=== PATIENT | male | born 1950 | race Caucasian/White ===

== ENCOUNTER → 2018-03-07 08:04 | Outpatient (CLI) | payer OTHER, SELFPAY ==
--- NOTE | 2018-03-07 | DI.MRI.S_ITS ---
PROCEDURE: MR LUMBAR SPINE WO CON INDICATIONS: LUMBAR DISC DISORDER TECHNIQUE: Noncontrast sagittal T1 spin echo and T2 fast echo, sagittal STIR, axial T1 and T2 fast spin echo through the lumbar spine. In cases with scoliosis, additional coronal T2 fast spin echo may be performed. COMPARISON: [facility], MR, L-SPINE WITHOUT CONTRAST, 09/02/2009, 16:59. FINDINGS: Image quality: Excellent. Alignment and Curvature: No plain films are available for comparison, for numbering purposes. Thus, for the purposes of this examination, 5 lumbar type vertebral bodies will be presumed, as denoted on the montage panel. This should be confirmed and correlated with plain films, prior to any lumbar spinal intervention.There is normal bony alignment. Bone Marrow: Marrow is of normal overall signal. No acute vertebral body compression fractures. Spinal Cord: Conus medullaris terminates at the lower L1 level. Visualized cord demonstrates normal signal and size. Paraspinous Soft Tissues: No paravertebral masses. L1-L2: Mild disc desiccation and mild diffuse disc bulge. Mild facet hypertrophy bilaterally. Mild epidural lipomatosis. Mild canal stenosis. Mild foraminal stenosis bilaterally. No change. L2-L3: Moderate disc desiccation and mild diffuse disc bulge. Mild facet hypertrophy. Moderate ligament flavum hypertrophy. Moderate epidural lipomatosis. Increased, moderate to severe canal stenosis. Increased, severe bilateral foraminal stenosis with flattening deformity of the L2 nerve roots within the neural foramina. L3-L4: Mild diffuse disc bulge and moderate disc desiccation. Moderate facet and ligamentum hypertrophy bilaterally. Increased, moderate canal stenosis. Moderate foraminal stenosis bilaterally. L4-L5: Moderate disc desiccation. Severe bilateral facet hypertrophy. Moderate ligamentum flavum hypertrophy bilaterally. Severe canal stenosis, as before. Increased, severe right and moderate left foraminal stenosis. Mild flattening deformity of the right L4 nerve root within the neural foramen. L5-S1: Moderate disc desiccation and mild diffuse disc bulge, with small superimposed broad based left far lateral protrusion, which is increased slightly. Moderate facet hypertrophy bilaterally. Mild canal stenosis. Moderate right foraminal stenosis is unchanged. There is increased, severe left foraminal stenosis with mild flattening deformity of the left L5 nerve root within the neural foramen. IMPRESSION: 1. Multilevel degenerative disc and facet disease, as well ligamentum flavum hypertrophy and epidural lipomatosis. 2. No change in severe L4-L5 canal stenosis. Right greater than left L4-L5 foraminal stenosis, associated with mild flattening deformity of the right L4 nerve root. 3. Increased, moderate to severe canal stenosis at L2-L3, and increased, severe right lateral L2-L3 foraminal stenosis associated with bilateral L2 nerve root flattening. 4. Increased, severe left L5-S1 foraminal stenosis associated with left L5 nerve root flattening. 5. Recommend correlation with clinical symptoms to ascertain relevance of these findings. Dictated by: Gilberto Buitrago M.D. on 03/07/2018 at 9:25 Approved by: Gilberto Buitrago M.D. on 03/07/2018 at 9:33
== END ==
PROVIDERS: Family Provider Family Medicine; PCP Family Medicine; Visit Provider Family Medicine
DX: M51.86 Other intervertebral disc disorders, lumbar region (principal); M51.36 Other intervertebral disc degeneration, lumbar region; M48.07 Spinal stenosis, lumbosacral region
CPT/HCPCS: 72148

== ENCOUNTER 2018-04-23 13:12 | Outpatient (CLI) | payer OTHER, SELFPAY ==
[2018-04-23] VITALS (11 sets, daily range): BP systolic 133–167; BP diastolic 67–97; PULSE 66–86; RESP 15–20; TEMP 36.1; O2SAT 95–100
--- NOTE | 2018-04-23 13:13 | DI.RAD.S_ITS ---
PROCEDURE: PAIN L/S FACET INJ/BLK 1ST JARVIS COMPARISON: None. INDICATIONS: Lumbosacral spondylosis FINDINGS: Bilateral L4-5 and L5-S1 needle tip localization was documented. IMPRESSION: Successful bilateral facet joint needle tip localization or epidural steroid injection. Dictated by: Saulo Bai M.D. on 04/23/2018 at 16:16 Approved by: Saulo Bai M.D. on 04/23/2018 at 16:16
--- NOTE | 2018-04-23 13:49 | P.PCN_ITS ---
Procedures Date/Time Date of procedure: 04/23/18 Time of procedure: 13:47 General Procedure description: PREOP DIAGNOSIS 1. FACET ARTHROPATHY 2. AXIAL LBP 3. MULTILEVEL DDD POST OP DIAGNOSIS 1. FACET ARTHROPATHY 2. AXIAL LBP 3. MULTILEVEL DDD PROCEDURES 1. FLUORSCOPICALLY GUIDED CONTRAST CONTROLLED FACET JOINT INJECTIONS BILATERAL L4/5, L5/S1 PHYSICIAN: Jaspal Barros, DO INDICATIONS Korin is referred by Dr. Ramirez for treatment of Axial LBP FINDINGS Multilevel Facet Arthropathy with Clinically significant axial LBP DESCRIPTION OF PROCEDURE Fluoroscopically guided, contrast-controlled bilateral L4/5, L5/S1 facet joint injections. Following denial of allergy and review of potential side effects and complications, including, but not necessarily limited to, infection, allergic reaction, local tissue breakdown, stroke, temporary or permanent nerve injury, paralysis, and possible , the patient indicated that the patient understood and agreed to proceed. An informed consent document was signed by the patient, witnessed by a nurse, and placed in the patient's chart. Additionally, other treatment options including medications, modalities, and physical therapy were reviewed with the patient. After review of previous anaesthesic history and IV conscious sedation the patient was deemed safe to proceed with todays procedure with IV conscious sedation as ASA class II designation. Safety time-out was performed to confirm patient ID, procedure to be performed and site of procedure. IV sedation was accomplished with a combination of 5mg was administered by the RN after DO order , titrated to patient comfort during the course of the procedure while the patient remained responsive to all verbal commands In the prone position, following sterile prep and drape of the lumbar region, the posterior aspect of the L4/5, L5/S1 facet joints were identified fluoroscopically. The skin was anesthetized via a 25-gauge 1.5-inch needle with 1% lidocaine solution into the corresponding facet joints. At this point, a 22-gauge 3.5-inch spinal needle was atraumatically introduced and advanced under fluoroscopic guidance into the corresponding facet joints. Following negative aspiration, injections of approximately 0.2-cc of Isovue 200 confirmed interarticular placement without vascular uptake. The identical procedure was then performed at the L4/5, L5/S1 facet joints on the left. Radiological data, including multiple fluoroscopic views of the lumbosacral spine, reveal a spinal needle at the L3/4, L5/S1 facet joints bilaterally. Subsequent views show flow of contrast material both superiorly and inferiorly within the joint space without vascular or intrathecal uptake. At this point, a total of 0.5 cc including a mixture of 0.25 cc Marcaine and 0.25 cc betamethasone was injected without complication into each of the corresponding facet joints. The patient tolerated the procedure well without signs or symptoms of complications prior to transfer to the recovery area continued monitoring without incident. The patient was then transferred to the recovery area where they were observed for an appropriate period of time after the injection. The patient reported a VAS score of 7 prior to the procedure and a post- procedure VAS of 0. Total Fluoroscopy Time: 20.3 seconds Total Conscious Sedation Time: 24min POST OP INSTRUCTIONS The patient was provided a Pain Log to continue to record their response to the target-specific procedure prior to follow-up visit with their referring physician. Additionally, specific post-injection care instructions and a contact number to our office were provided if concerns arise regarding possible complications associated with the procedure are suspected. Jaspal Barros DO Complications: none
[2018-04-23] MEDS: MIDAZOLAM 5 MG/5 ML VIAL IV (14:04)
[2018-04-23] MEDS: LIDOCAINE 1% 20 ML INJ 10 ML INJ (14:09)
[2018-04-23] MEDS: BETAMETHASONE 30 MG/5 ML MDV 12 MG INJ (14:10)
[2018-04-23] MEDS: IOPAMIDOL 15 ML VIAL 3 ML INJ (14:10)
[2018-04-23] MEDS: BUPIVACAINE 0.5% (PF) VIAL 5 ML INJ (14:10)
--- NOTE | 2018-04-24 14:09 | PC.NURSE ---
FOLLOW UP PHONE CALL MADE. MSG LEFT WITH OFFICE PHONE #
== END 2018-04-23 14:51 ==
PROVIDERS: Family Provider Family Medicine; PCP Family Medicine; Visit Provider Physical Medicine & Rehabilitation
DX: M47.26 Other spondylosis with radiculopathy, lumbar region (principal); M47.27 Other spondylosis with radiculopathy, lumbosacral region; M51.36 Other intervertebral disc degeneration, lumbar region; M51.37 Other intervertebral disc degeneration, lumbosacral region; M48.061 Spinal stenosis, lumbar region without neurogenic claudication; M54.5 Low back pain
CPT/HCPCS: 64493; 99152; J0702; J2250

== ENCOUNTER 2018-06-18 13:09 | Outpatient (CLI) | payer OTHER, SELFPAY ==
[2018-06-18] VITALS (7 sets, daily range): BP systolic 161–182; BP diastolic 86–107; PULSE 64–86; RESP 16–18; TEMP 36.6; O2SAT 95–99
--- NOTE | 2018-06-18 13:10 | DI.RAD.S_ITS ---
PROCEDURE: PAIN L INTERLAMINAR/CAUDAL INJ INDICATIONS: Spinal stenosis, lumbar region without neurogenic FINDINGS: Fluoroscopic spot filming was performed to verify placement of spinal needles at the interlaminar nodule 45 level(s), as labeled on the films. Appropriate location(s) of the needle tip(s) was confirmed by injection of iodinated contrast. IMPRESSION: Successful needle tip localization for L4-5 interlaminar notch epidural steroid injection dorsally. Dictated by: Saulo Bai M.D. on 06/18/2018 at 16:21 Approved by: Saulo Bai M.D. on 06/18/2018 at 16:24
--- NOTE | 2018-06-18 13:37 | PM.PROC.1 ---
Procedures Date/Time Date of procedure: 06/18/18 Time of procedure: 13:37 General Procedure description: PROVIDER: Jaspal Barros DO Operative Note PREOP DIAGNOSIS 1. HNP WITH RADICULAR FEATURES, 2. MULTILEVEL CENTRAL STENOSIS, POST OP DIAGNOSIS 1. HNP WITH RADICULAR FEATURES, 2. MULTILEVEL CENTRAL STENOSIS PROCEDURES 1. FLUORSCOPICALLY GUIDED CONTRAST CONTROLLED INTERLAMINAR EPIDURAL STEROID INJECTION -L4/5 PHYSICIAN: Jaspal Barros DO INDICATIONs: Korin is referred by Dr. Ramirez for treatment of Bilateral Foraminal Stenosis R>L LE symptoms. FINDINGS Multilevel Central Spinal Stenosis with Nerve Root Compression DESCRIPTION OF PROCEDURE Fluoroscopically guided, contrast-controlled L4/5 translaminar epidural steroid injection. Following denial of allergy and review of potential side effects and complications, including, but not necessarily limited to, infection, allergic reaction, local tissue breakdown, temporary as well as permanent nerve injury, paralysis, stroke and possible , the patient indicated that the patient understood and agreed to proceed. An informed consent document was signed by the patient, witnessed by a nurse, and placed in the patient's chart. Additionally, other treatment options including modalities, medications, and physical therapy were reviewed with the patient. After review of previous anaesthesic history and IV conscious sedation the patient was deemed safe to proceed with todays procedure with IV conscious sedation as ASA class II designation. Safety time-out was performed to confirm patient ID, procedure to be performed and site of procedure. IV sedation was accomplished with a combination of 4mg was administered by the RN after DO order, titrated to patient comfort during the course of the procedure while the patient remained responsive to all verbal commands In the prone position, following sterile prep and drape of the lumbar region, the L4/5 translaminar space was identified fluoroscopically. The skin was anesthetized via a 25-gauge, 1.5-inch needle with 1% lidocaine solution. At this point, a 22-gauge short bevel spinal needle was atraumatically introduced and advanced under fluoroscopic guidance into the region of the L4/5 translaminar space. Depth was confirmed on lateral view. Radiological data, including multiple fluoroscopic views of the lumbar spine, reveal a spinal needle at the L4/5 translaminar space. Lateral views then show placement of the needle in the epidural space. Subsequent views show contrast material flowing superiorly and inferiorly in the epidural space. No vascular or intrathecal uptake is observed. At this point, using loss of resistance technique with saline and air, the epidural space was entered. This was confirmed following negative aspiration with injection of approximately 1.5 cc of Isovue 200, showing excellent epidural flow without vascular or intrathecal uptake. At this point, 1 cc of 1% lidocaine solution combined with 3 cc or 20 mg of dexamethasone and 80mg Depo medrol was injected without incident. The patient tolerated the procedure well without signs or symptoms of complications prior to transfer to the recovery area continued monitoring without incident. The patient was then transferred to the recovery area where they were observed for an appropriate period of time after the injection. The patient reported a VAS score of 6 prior to the procedure and a post-procedure VAS of 0. Total Fluoroscopy Time: 11.8 seconds, 8.99 mGy Total Conscious Sedation Time: 24min POST OP INSTRUCTIONS The patient was provided a Pain Log to continue to record their response to the target-specific procedure prior to follow-up visit with their referring physician. Additionally, specific post-injection care instructions and a contact number to our office were provided if concerns arise regarding possible complications associated with the procedure are suspected. Jaspal Barros, Complications: none
[2018-06-18] MEDS: MIDAZOLAM 5 MG/5 ML VIAL IV (13:55)
[2018-06-18] MEDS: DEXAMETHASONE 10 MG/ML VIAL 20 MG INJ (14:05)
[2018-06-18] MEDS: BUPIVACAINE 0.25% (PF) VIAL 2 ML INJ (14:05)
[2018-06-18] MEDS: IOPAMIDOL 15 ML VIAL 3 ML INJ (14:05)
[2018-06-18] MEDS: methylPREDNISolone acetate 80 MG/ML VIAL INJ (14:06)
--- NOTE | 2018-06-18 14:13 | P.PCN_ITS ---
Procedures Date/Time Date of procedure: 06/18/18 Time of procedure: 13:37 General Procedure description: PROVIDER: Jaspal Barros DO Operative Note PREOP DIAGNOSIS 1. HNP WITH RADICULAR FEATURES, 2. MULTILEVEL CENTRAL STENOSIS, POST OP DIAGNOSIS 1. HNP WITH RADICULAR FEATURES, 2. MULTILEVEL CENTRAL STENOSIS PROCEDURES 1. FLUORSCOPICALLY GUIDED CONTRAST CONTROLLED INTERLAMINAR EPIDURAL STEROID INJECTION -L4/5 PHYSICIAN: Jaspal Barros DO INDICATIONs: Korin is referred by Dr. Ramirez for treatment of Bilateral Foraminal Stenosis R>L LE symptoms. FINDINGS Multilevel Central Spinal Stenosis with Nerve Root Compression DESCRIPTION OF PROCEDURE Fluoroscopically guided, contrast-controlled L4/5 translaminar epidural steroid injection. Following denial of allergy and review of potential side effects and complications, including, but not necessarily limited to, infection, allergic reaction, local tissue breakdown, temporary as well as permanent nerve injury, paralysis, stroke and possible , the patient indicated that the patient understood and agreed to proceed. An informed consent document was signed by the patient, witnessed by a nurse, and placed in the patient's chart. Additionally, other treatment options including modalities, medications, and physical therapy were reviewed with the patient. After review of previous anaesthesic history and IV conscious sedation the patient was deemed safe to proceed with todays procedure with IV conscious sedation as ASA class II designation. Safety time-out was performed to confirm patient ID, procedure to be performed and site of procedure. IV sedation was accomplished with a combination of 4mg was administered by the RN after DO order , titrated to patient comfort during the course of the procedure while the patient remained responsive to all verbal commands In the prone position, following sterile prep and drape of the lumbar region, the L4/5 translaminar space was identified fluoroscopically. The skin was anesthetized via a 25-gauge, 1.5-inch needle with 1% lidocaine solution. At this point, a 22-gauge short bevel spinal needle was atraumatically introduced and advanced under fluoroscopic guidance into the region of the L4/5 translaminar space. Depth was confirmed on lateral view. Radiological data, including multiple fluoroscopic views of the lumbar spine, reveal a spinal needle at the L4/5 translaminar space. Lateral views then show placement of the needle in the epidural space. Subsequent views show contrast material flowing superiorly and inferiorly in the epidural space. No vascular or intrathecal uptake is observed. At this point, using loss of resistance technique with saline and air, the epidural space was entered. This was confirmed following negative aspiration with injection of approximately 1.5 cc of Isovue 200, showing excellent epidural flow without vascular or intrathecal uptake. At this point, 1 cc of 1 % lidocaine solution combined with 3 cc or 20 mg of dexamethasone and 80mg Depo medrol was injected without incident. The patient tolerated the procedure well without signs or symptoms of complications prior to transfer to the recovery area continued monitoring without incident. The patient was then transferred to the recovery area where they were observed for an appropriate period of time after the injection. The patient reported a VAS score of 6 prior to the procedure and a post- procedure VAS of 0. Total Fluoroscopy Time: 11.8 seconds, 8.99 mGy Total Conscious Sedation Time: 24min POST OP INSTRUCTIONS The patient was provided a Pain Log to continue to record their response to the target-specific procedure prior to follow-up visit with their referring physician. Additionally, specific post-injection care instructions and a contact number to our office were provided if concerns arise regarding possible complications associated with the procedure are suspected. Jaspal Barros, Complications: none
--- NOTE | 2018-06-18 14:18 | PC.NURSE ---
pt al little drowsy but able to follow commands, able to move self from table to W/C with moderate assist, VSS pt transported to Melissa GON[facility] in pre procedure room.
--- NOTE | 2018-06-18 14:19 | PC.NURSE ---
1412 PT ARRIVED TO POST OP AREA IN STABLE CONDITION
== END 2018-06-18 15:04 | disposition home or self-care (01) ==
PROVIDERS: PCP Family Medicine; Visit Provider Physical Medicine & Rehabilitation
DX: M51.16 Intervertebral disc disorders with radiculopathy, lumbar region (principal); M48.061 Spinal stenosis, lumbar region without neurogenic claudication
CPT/HCPCS: 62323; 99152; J1040; J1100; J2250

== ENCOUNTER 2019-03-04 08:47 | Outpatient (CLI) | payer OTHER, SELFPAY ==
[2019-03-04] VITALS (8 sets, daily range): BP systolic 137–156; BP diastolic 75–86; PULSE 61–80; RESP 16–18; TEMP 36.7; O2SAT 95–98
--- NOTE | 2019-03-04 08:48 | DI.RAD.S_ITS ---
PROCEDURE: PAIN L/S FACET INJ/BLK 1ST JARVIS COMPARISON: [facility], , PAIN L/S FACET INJ/BLK 1ST JARVIS, 04/23/2018, 14:03. INDICATIONS: SPONDYLOSIS FINDINGS: These intraprocedural images were performed for localization and were submitted for interpretation following the completion of the procedure. On these images, there are bilateral spinal needles placed at the L4, L5, and S1 levels, as labeled on the films. Appropriate location of the contrast was confirmed with injection of a small amount of iodinated contrast. IMPRESSION: Unremarkable intraprocedural study. Dictated by: Raimundo Murillo M.D. on 03/04/2019 at 12:28 Approved by: Raimundo Murillo M.D. on 03/04/2019 at 12:29
[2019-03-04] MEDS: MIDAZOLAM 5 MG/5 ML VIAL IV (09:58)
[2019-03-04] MEDS: fentaNYL 100 MCG/2 ML INJ 50 MCG IV (09:58)
[2019-03-04] MEDS: BUPIVACAINE 0.5% (PF) VIAL 5 ML INJ (10:02)
[2019-03-04] MEDS: BETAMETHASONE 30 MG/5 ML MDV 12 MG INJ (10:03)
[2019-03-04] MEDS: IOPAMIDOL 15 ML VIAL 3 ML INJ (10:03)
[2019-03-04] MEDS: LIDOCAINE 1% 20 ML INJ 10 ML INJ (10:03)
--- NOTE | 2019-03-04 10:08 | PC.NURSE ---
ASSISTING PT OFF TABLE AND TRANSPORTING TO POST PROC AREA IN STABLE CONDITION
--- NOTE | 2019-03-04 10:13 | P.PCN_ITS ---
Procedures Date/Time Date of procedure: 03/04/19 Time of procedure: 10:12 General Procedure description: Procedure description: 1. FACET ARTHROPATHY PROCEDURES: 1. BILATERAL- L4, L5 and S1 MB BLOCKS PHYSICIAN: DO KEYSHA Swift Korin is referred by for treatment of Bilateral Axial LBP. DESCRIPTION OF PROCEDURE Fluoroscopically guided, contrast-controlled bilateral L4, L5 and S1 medial branch blocks with 0.5cc of 0.5% Marcaine. Following review of allergy and review of potential side effects and complications, including, but not necessarily limited to, infection, allergic reaction, local tissue breakdown, nerve injury, paralysis, stroke and possible , the patient indicated that the patient understood and agreed to proceed. An informed consent document was signed by the patient, witnessed by a nurse, and placed in the patient's chart. After review of previous anaesthesic history and IV conscious sedation the patient was deemed safe to proceed with todays procedure with IV conscious se dation as ASA class II designation. Safety time-out was performed to confirm patient ID, procedure to be performed and site of procedure. IV sedation was accomplished with a combination of 2mg of Versed and 50mcg of Fentanyl was administered by the RN after DO order, titrated to patient comfort during the course of the procedure while the patient remained responsive to all verbal commands In the prone position, following sterile prep and drape of the lumbar region, the right L4, L5 and S1 anatomical location of the medial branch of the dorsal ramus was identified fluoroscopically. Subsequently an anesthetic skin wheal using 1% lidocaine solution was initiated at each of the anatomical spots. Subsequently then a 22-gauge 3.5-inch spinal needle was atraumatically introduced and advanced under fluoroscopic guidance at each of the corresponding sites at the right L4, L5 and S1 MB. After negative aspiration, 0.2 cc of Isovue 200 was injected, confirming placement without vascular or intrathecal uptake. Subsequently then 0.5 cc of 0.5% Marcaine solution was injected at each of the corresponding sites at the right L4, L5 and S1 medial branch locations. The identical procedure was replicated on the left. The patient tolerated the procedure well without signs or symptoms of complications prior to transfer to the recovery area continued monitoring without incident. Post-procedure, the patient was monitored initiating provocative activities to measure the amount of relief from block of the facetogenic pain. The patient reported a VAS of 7 prior to the procedure and a post-procedure VAS of 1. It has been a pleasure to assist in the diagnostic and therapeutic care of your patient. Total Fluoroscopy Time: 24.8 seconds Total Conscious Sedation Time: 24min POST OP INSTRUCTIONS The patient was provided with a Pain Log to complete over the next several hours and subsequent days prior to the patient's follow up with the ordering physician. 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 The patient is aware, was provided, once again, with a Pain Log and will follow up with the referring physician for review and clinical correlation Jaspal Barros DO Complications: none
--- NOTE | 2019-03-04 10:16 | PC.NURSE ---
pt returned from procedure awake and alert via wheelchair, able to transfer from w/c to chair with standby assist. Resumed monitoring from Melissa GONZALEZ.
== END 2019-03-04 10:59 ==
LOC: RAD 08:48
PROVIDERS: PCP Family Medicine; Visit Provider Physical Medicine & Rehabilitation
DX: M47.816 Spondylosis without myelopathy or radiculopathy, lumbar region (principal); M47.817 Spondylosis without myelopathy or radiculopathy, lumbosacral region
CPT/HCPCS: 64493; 64494; 99152; J0702; J2250; J3010

== ENCOUNTER 2019-06-12 07:27 | Outpatient (CLI) | payer OTHER, SELFPAY ==
[2019-06-12] VITALS (9 sets, daily range): BP systolic 143–165; BP diastolic 74–88; PULSE 16–82; RESP 16; O2SAT 94–98
--- NOTE | 2019-06-12 07:30 | DI.RAD.S_ITS ---
PROCEDURE: PAIN L/S MED/LAT N RFA BILAT INDICATIONS: LUMBAR SPODYLOSIS FINDINGS: Fluoroscopic spot filming was performed to verify placement of spinal needles at the L3, L4, L5 level(s), as labeled on the films. Appropriate location(s) of the needle tip(s) was confirmed by injection of iodinated contrast. Dictated by: Henrique Bragg M.D. on 06/12/2019 at 9:48 Approved by: Henrique Bragg M.D. on 06/12/2019 at 9:49
[2019-06-12] MEDS: fentaNYL 100 MCG/2 ML INJ 50 MCG IV (08:28)
[2019-06-12] MEDS: MIDAZOLAM 5 MG/5 ML VIAL IV (08:28)
[2019-06-12] MEDS: BUPIVACAINE 0.5% (PF) VIAL 2 ML INJ (08:50)
[2019-06-12] MEDS: BETAMETHASONE 30 MG/5 ML MDV 12 MG INJ (08:50)
[2019-06-12] MEDS: LIDOCAINE 1% 20 ML 10 ML INJ (08:50)
--- NOTE | 2019-06-12 09:12 | P.PCN_ITS ---
Procedures Date/Time Date of procedure: 06/12/19 Time of procedure: 09:12 General Procedure description: POST OP DIAGNOSIS 1. FACET ARTHROPATHY PROCEDURES 1. BILATERAL L3, L4 AND L5 MB BLOCKS PHYSICIAN: DO KEYSHA Swift Korin is referred by Dr. Ramirez for treatment of Bilateral Axial LBP. DESCRIPTION OF PROCEDURE Fluoroscopically guided, contrast-controlled bilateral L3, L4 and L5 medial branch blocks with 0.5cc of 0.5% Marcaine. Following review of allergy and review of potential side effects and complications, including, but not necessarily limited to, infection, allergic reaction, local tissue breakdown, nerve injury, paralysis, stroke and possible , the patient indicated that the patient understood and agreed to proceed. An informed consent document was signed by the patient, witnessed by a nurse, and placed in the patient's chart. After review of previous anaesthesic history and IV conscious sedation the patient was deemed safe to proceed with todays procedure with IV conscious sedation as ASA class II designation. Safety time-out was performed to confirm patient ID, procedure to be performed and site of procedure. IV sedation was accomplished with a combination of 5mg of Versed and 50mcg of Fentantyl was administered by the RN after DO order, titrated to patient comfort during the course of the procedure while the patient remained responsive to all verbal commands In the prone position, following sterile prep and drape of the lumbar region, the right L3, L4 and L5 anatomical location of the medial branch of the dorsal ramus was identified fluoroscopically. Subsequently an anesthetic skin wheal using 1% lidocaine solution was initiated at each of the anatomical spots. Subsequently then a 22-gauge 3.5-inch spinal needle was atraumatically introduced and advanced under fluoroscopic guidance at each of the corresponding sites at the right L3, L4 and L5 MB. After negative aspiration, 0.2 cc of Isovue 200 was injected, confirming placement without vascular or intrathecal uptake. Subsequently then 0.5 cc of 0.5% Marcaine solution was injected at each of the corresponding sites at the Right L3, L4 and L5 medial branch locations. The identical procedure was replicated on the left. The patient tolerated the procedure well without signs or symptoms of complications. The patient tolerated the procedure well without signs or symptoms of complications prior to transfer to the recovery area continued monitoring without incident. Post-procedure, the patient was monitored initiating provocative activities to measure the amount of relief from block of the facetogenic pain. The patient reported a VAS of 7 prior to the procedure and a post-procedure VAS of 1. It has been a pleasure to assist in the diagnostic and therapeutic care of your patient. Total Fluoroscopy Time: 24.8 seconds Total Conscious Sedation Time: 24min POST OP INSTRUCTIONS The patient was provided with a Pain Log to complete over the next several hours and subsequent days prior to the patient's follow up with the ordering physician. 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 The patient is aware, was provided, once again, with a Pain Log and will follow up with the referring physician for review and clinical correlation Jaspal Barros DO Complications: none
--- NOTE | 2019-06-12 09:16 | PC.NURSE ---
ACCEPTED CARE OF PT IN POST PROC AREA IN STABLE CONDITION
--- NOTE | 2019-06-12 09:18 | PC.NURSE ---
Procedure note: Patient positioned on IR table. Time out at 0826. Medicated with 5mg Versed and 50 mcg Fentanyl with good pain relief during procedure. Vital signs remained stable throughout procedure. Drowsy but easily arousable by soft voice. Procedure end at 0902. Patient able to sit up and transfer to wheelchair with stand by assist. Transferred for post procedure monitoring. Pain level 3/10. Denies any unusual numbness or tingling. Handoff report given to Yaima Mathew RN.
== END 2019-06-12 09:42 | disposition home or self-care (01) ==
LOC: RAD 07:29
PROVIDERS: PCP Family Medicine; Visit Provider Physical Medicine & Rehabilitation
DX: M47.816 Spondylosis without myelopathy or radiculopathy, lumbar region (principal)
CPT/HCPCS: 64635; 64636; 99152; 99153; J0702; J2250; J3010

== ENCOUNTER → 2019-07-09 09:35 | Outpatient (CLI) | payer OTHER, SELFPAY ==
--- NOTE | 2019-07-09 09:36 | DI.RAD.S_ITS ---
PROCEDURE: XR KNEE RT 3V INDICATIONS: right knee pain s/p acl repair 10yrs prior TECHNIQUE: 3 views of the knee were acquired. COMPARISON: None. FINDINGS: Bones: No fractures or dislocations. No suspicious bony lesions. Remote anterior cruciate ligament graft repair can be seen. There is mild medial femorotibial joint space narrowing seen, with associated remodeling changes including subchondral sclerosis and osteophyte formation along the jointline. On the sunrise view, there is mild to moderate lateral patellofemoral joint space narrowing seen. Osteophyte formation can be seen along the margins of the patella. Soft tissues: There is a small joint effusion. No suspicious soft tissue calcifications. IMPRESSION: Anterior cruciate ligament graft repair with age-appropriate degenerative changes. Dictated by: Raimundo Murillo M.D. on 07/09/2019 at 9:57 Approved by: Raimundo Murillo M.D. on 07/09/2019 at 10:00
== END ==
PROVIDERS: PCP Family Medicine; Visit Provider Physical Medicine & Rehabilitation
DX: M25.561 Pain in right knee (principal); M25.461 Effusion, right knee
CPT/HCPCS: 73562

== ENCOUNTER 2019-10-16 11:24 | Outpatient (CLI) | payer OTHER, SELFPAY ==
[2019-10-16] VITALS (12 sets, daily range): BP systolic 111–140; BP diastolic 46–81; PULSE 78–91; RESP 16–18; TEMP 37.2; O2SAT 94–97
--- NOTE | 2019-10-16 11:21 | PC.NURSE ---
called by Melissa twice , no answer, left message. no show
--- NOTE | 2019-10-16 11:26 | DI.RAD.S_ITS ---
PROCEDURE: PAIN L/S MED/LAT N RFA BILAT INDICATIONS: SPONDYLOSIS FINDINGS: Fluoroscopic spot filming was performed to verify placement of spinal needles at the L4, L5 and S1 level(s), as labeled on the films. Appropriate location(s) of the needle tip(s) was confirmed by injection of iodinated contrast. IMPRESSION: Fluoroscopy for pain management. Dictated by: Eufemia Arguello M.D. on 10/16/2019 at 13:00 Approved by: Eufemia Arguello M.D. on 10/16/2019 at 13:02
[2019-10-16] MEDS: fentaNYL 100 MCG/2 ML INJ 50 MCG IV (11:51)
[2019-10-16] MEDS: LIDOCAINE 1% 20 ML 10 ML INJ (12:03)
[2019-10-16] MEDS: BUPIVACAINE 0.5% (PF) VIAL 2 ML INJ (12:03)
[2019-10-16] MEDS: MIDAZOLAM 5 MG/5 ML VIAL IV (12:09)
--- NOTE | 2019-10-16 12:25 | PC.NURSE ---
ASSISTING PT OFF TABLE AND TRANSPORTING TO POST PROC AREA IN STABLE CONDITION. PASSING RN CARE OF PT OFF TO ARY Thompson RN.
--- NOTE | 2019-10-16 12:36 | P.PCN_ITS ---
Procedures Date/Time Date of procedure: 10/16/19 Time of procedure: 12:36 General Procedure description: PREOP DIAGNOSIS 1. RECALCITRANT FACET ARTHROPATHY, POST OP DIAGNOSIS 1. RECALCITRANT FACET ARTHROPATHY PROCEDURES 1. BILATERAL L4 AND L5 MEDIAL BRANCH RADIOFREQUENCY NEUROTOMY AND S1 DORSAL RAMUS BRANCH RADIOFREQUENCY NEUROTOMY, PHYSICIAN: Jaspal Barros DO INDICATIONS: Korin is referred by for treatment of facet arthropathy. DESCRIPTION OF PROCEDURE Right L4 and L5 medial branch radiofrequency neurotomy and right S1 dorsal ramus radiofrequency neurotomy under fluoroscopy with conscious sedation. The patient is well known to this clinic having undergone previous facet injections with good but temporary relief. The patient has experienced appropriate, concordant relief with previous facet and median branch blocks but the patient's pain has been recalcitrant to further conservative measures. Therefore, based upon the patient's relief and persistent symptoms, the patient is considered an appropriate candidate for facet rhizotomy. All of the patient's questions regarding the risks versus benefits of the procedure, including, but not limited to, bleeding, infection, temporary as well as lasting nerve injury, paralysis, stroke, and , as well treatment alternatives were answered to satisfaction. After obtaining informed consent, denial of pertinent drug allergies, as well as being made aware of the potential risks of bleeding, infection, spinal cord trauma, paralysis, temporary and permanent nerve damage, seizure, stroke, and possible , the patient was brought to the fluoroscopy suite and positioned prone on the fluoroscopy table. The lumbar region was prepped with Chlorhexadine and covered with a fenestrated drape in the usual sterile fashion. Appropriate monitors applied including pulse oximeter, pulse, and blood pressure for regular monitoring throughout the procedure. After review of previous anaesthesic history and IV conscious sedation the patient was deemed safe to proceed with todays procedure with IV conscious sedation as ASA class II designation. Safety time-out was performed to confirm patient ID, procedure to be performed and site of procedure. IV sedation was accomplished with a combination of 5mg of Versed and 50mcg of Fentanyl administered by the RN after DO order, titrated to patient comfort during the course of the procedure while the patient remained responsive to all verbal commands. After local infiltration using 1% lidocaine, under fluoroscopic guidance, a 10- cm RF insulated needle with a 10-mm active tip was positioned parallel to the junction of the right sacral ala and the superior articulating process where the S1 dorsal ramus resides. Needle placement was confirmed with motor stimulation of .5v on the right which produced local stimulation without radicular component. The stimulation was then increased to 1.5v with, once again, only local multifidus stimulation without radicular component. The needle was then removed and the identical procedure was performed along the length of the right L5 medial branch with motor stimulation at .7v on the right. The identical procedure was once again performed along the length of the right L4 medial branch with motor stimulation of .5v on the right. The medial branches were then anesthetised with 0.5% Marcaine. This was then followed by two discreet lesions performed at 80 degrees Celsius for 90 seconds each. The identical procedure was repeated on the left. The patient tolerated the procedure well without signs or symptoms of complications prior to transfer to the recovery area continued monitoring without incident. The patient was then transferred to the recovery area where they were observed for an appropriate period of time after the injection. The patient reported a VAS score of 9 prior to the procedure and a post-procedure VAS of 0. Total Fluoroscopy Time: 16 seconds Total Conscious Sedation Time: 34min POST OP INSTRUCTIONS The patient was provided a Pain Log to continue to record the patient's response to the target-specific procedure prior to the patient's follow-up visit with the referring physician. Additionally, specific post-injection care instructions and a contact number to our office were provided if concerns arise regarding possible complications associated with the procedure are suspected. Jaspal Barros DO Complications: none
== END 2019-10-16 13:00 | disposition home or self-care (01) ==
LOC: RAD 11:26
PROVIDERS: PCP Family Medicine; Referring Provider Physical Medicine & Rehabilitation; Visit Provider Physical Medicine & Rehabilitation
DX: M47.816 Spondylosis without myelopathy or radiculopathy, lumbar region (principal); M47.817 Spondylosis without myelopathy or radiculopathy, lumbosacral region
CPT/HCPCS: 64635; 64636; 99152; 99153; J2250; J3010

== ENCOUNTER 2020-07-25 10:15 | Emergency (ER) | payer OTHER, SELFPAY ==
[2020-07-25] VITALS (9 sets, daily range): BP systolic 119–162; BP diastolic 74–97; PULSE 61–75; RESP 11–23; TEMP 36.6; O2SAT 97–100
--- NOTE | 2020-07-25 10:22 | DI.RAD.S_ITS ---
PROCEDURE: XR CHEST 1V INDICATIONS: chest pain TECHNIQUE: One view of the chest was acquired. COMPARISON: [facility], , CHEST 1 VIEW, 07/23/2017, 11:21. FINDINGS: Slightly limited given slight lordotic positioning. Overlying EKG wires. Surgical changes and devices: None. Lungs and pleura: Linear densities overlying the left lung base likely representing atelectasis/scarring similar to prior exam.. No focal consolidation. No pneumothorax or large volume pleural effusion. Mediastinum: Mediastinal contours appear normal. Heart size is normal. Bones and chest wall: Degenerative changes of the shoulders and spine with high-riding humeral head suggestive of chronic rotator cuff tearing. No suspicious bony lesions. Overlying soft tissues appear unremarkable. IMPRESSION: No evidence of an acute cardiopulmonary abnormality. Dictated by: Jerry Collins D.O. on 07/25/2020 at 9:42 Approved by: Jerry Collins D.O. on 07/25/2020 at 9:44
--- NOTE | 2020-07-25 10:32 | ED.CHESTPAIN ---
HPI - Chest Pain General Chief Complaint: Chest Pain Stated Complaint: Chest pain Time Seen by Provider: 07/25/20 10:20 Source: patient Mode of arrival: Ambulatory Limitations: no limitations History of Present Illness HPI narrative: Patient is a 69-year-old male with history of spinal stenosis, hypertension hyperlipidemia presenting with back pain and chest pain. He says it has been ongoing for 2-4 weeks more on the left side by his shoulder blade radiating around to his chest. It is worse in the morning, so much so that he needs to carry his left arm due to pain. He denies any weakness numbness or tingling. He does get some tingling in the back of his left arm occasionally. He denies any injury to it is. It is worse when he bends over low or takes a deep breath. It is not reproducible really with palpation or arm movement. He denies shortness of breath. No prior history of coronary artery disease. He has been taking Celexa regularly without any relief. MD complaint: chest pain Duration: intermittent Onset: during exertion Relieving factors: nothing Exacerbating factors: movement Related Data Home Medications Medication Instructions Recorded Confirmed hydrochlorothiazide 25 mg PO QDAY #0 12/26/10 07/26/18 lisinopril 20 mg PO QDAY #0 12/28/10 07/26/18 pravastatin 20 mg PO HS #0 07/23/17 07/26/18 Previous Rx's Medication Instructions Recorded hydrocodone-acetaminophen 1 tab PO TID #30 tab 06/12/19 venlafaxine 75 mg tablet,extended 75 mg PO QDAY #90 tab 06/12/19 release 24 hr celecoxib 200 mg capsule 200 mg PO DAILY #90 cap 07/09/19 cyclobenzaprine 5 mg PO TID PRN #10 tab 07/25/20 hydrocodone-acetaminophen 1 tab PO Q6H PRN #10 tab 07/25/20 Allergies Allergy/AdvReac Type Severity Reaction Status Date / Time No Known Drug Allergies Allergy Verified 09/08/19 11:11 Review of Systems Review of Systems Narrative: GENERAL: Denies chills, fatigue, malaise, fever, sweats, travel HEENT: Denies sinus pain, ear pain, sore throat, difficulty swallowing, neck pain RESPIRATORY: Denies dyspnea, cough, wheezing, hemoptysis, sputum. CARDIOVASCULAR: Denies chest pain, palpitations, orthopnea, edema GASTROINTESTINAL: Denies nausea, vomiting, abdominal pain, diarrhea, constipation, melena. : Denies dysuria, frequency, incontinence, hematuria, urinary retention, flank pain. MUSCULOSKELETAL: See HPI SKIN: No rash, no erythema, no pruritus NEUROLOGIC: Denies weakness, dizziness, headache, numbness, change in speech, confusion PSYCHIATRIC: No concerning psychosocial issues. 12 point review of systems is negative except for those stated above and HPI Patient History Medical History Chronic a-fib Deviated septum Lumbosacral spondylosis with radiculopathy Right knee DJD Spinal stenosis at L4-L5 level Surgical History H/O hand surgery H/O hernia repair H/O knee surgery History of repair of anterior cruciate ligament of right knee Hx of appendectomy Family History Father Lymphoma Mother No problems noted. Sister Pancreatic cancer Sister COPD (chronic obstructive pulmonary disease) Social History Smoking Status: Never smoker Tobacco: How many years used: 0 quit status: quit date established (Never Started) Smoking Status: Never smoker Exam Initial Vital Signs Initial Vital Signs: Vital Signs Blood Pressure 162/81 H 07/25/20 10:20 GENERAL: Well-appearing, well-nourished and in no acute distress. HEENT: Head atraumatic,EOMI, pupils reactive, face symmetric, moist mucous membranes CARDIOVASCULAR: Regular rate and rhythm without murmurs, rubs or gallops. RESPIRATORY: Breath sounds equal bilaterally, no wheezes rales or rhonchi. ABDOMEN: Soft, nontender. Normoactive bowel sounds all 4 quadrants. No guarding or rebound. BACK: No midline tenderness some tenderness to the left thoracic paraspinal area but not really reproducible EXTREMITIES: Normal range of motion, no clubbing or edema. Neurovascularly intact NEUROLOGICAL: Alert and oriented x4.Normal gait and speech. Cranial nerves II through XII grossly intact. [employer]per strength is equal bilaterally sensation in upper extremities bilaterally SKIN: Warm, dry, no laceration, no petechiae, no rashes or lesions. Course Orders Ordered: ED Orders 07/25/20 10:22 XR chest 1V Stat EKG-12 Lead Stat 07/25/20 10:26 Complete Blood Count AUTO DIFF Stat Comprehensive Metabolic Panel Stat D Dimer Stat Lipase Stat NT-proBNP (BNP-Adult 18+) Stat Partial Thromboplastin Time Stat Prothrombin Time INR Stat Troponin & CK Cardiac Panel Stat 07/25/20 11:46 CT angio chest PE protocol Stat Discontinued Medications Aspirin (Aspirin 81 Mg Chew Tab) 324 mg PO NOW ONE Stop: 07/25/20 10:22 Cyclobenzaprine HCl (Cyclobenzaprine 10 Mg Tablet) 10 mg PO NOW ONE Stop: 07/25/20 10:32 Last Admin: 07/25/20 10:38 Dose: 10 mg Documented by: ADAN Ketorolac Tromethamine (Ketorolac 60 Mg/2 Ml Vial) 15 mg IV NOW ONE Stop: 07/25/20 10:32 Last Admin: 07/25/20 10:37 Dose: 15 mg Documented by: ADAN Vital Signs Vital signs: Vital Signs - 8 hr 07/25/20 10:20 07/25/20 10:27 07/25/20 10:30 Temperature 97.9 F Pulse Rate 72 75 Respiratory Rate 18 23 Blood Pressure 162/81 H 162/81 H 147/80 H Pulse Oximetry 99 98 07/25/20 11:00 07/25/20 11:30 07/25/20 12:05 Temperature Pulse Rate 66 72 66 Respiratory Rate 15 14 Blood Pressure 133/74 133/76 Pulse Oximetry 97 99 100 07/25/20 12:30 07/25/20 13:00 07/25/20 13:26 Temperature Pulse Rate 62 61 66 Respiratory Rate 11 L 15 14 Blood Pressure 119/97 H Pulse Oximetry 97 97 100 MDM - Chest Pain Lab Data Attestation: I reviewed the patient's lab results. Result diagrams: 07/25/20 10:26 07/25/20 10:26 Labs: Lab Results 07/25/20 07/25/20 07/25/20 Range/Units 10:26 10:26 10:26 WBC 5.6 (4.5-11.0) X10^3/uL RBC 4.62 (4.5-5.9) X10^6/uL Hgb 15.0 (13.5-17.5) g/dL Hct 42.8 (41-53) % MCV 92.8 (80-100) fL MCH 32.4 (26-34) PG MCHC 35.0 (30-36) % RDW 13.1 (11.6-14.8) % Plt Count 255 (150-400) X10^3/uL Neut % (Auto) 47.8 L (50-75) % Lymph % (Auto) 39.3 (25-40) % Emery % (Auto) 10.8 (3-14) % Eos % (Auto) 1.5 L (2-4) % Baso % (Auto) 0.6 (0-2) % Neut # (Auto) 2700 (9206-2939) /uL Lymph # (Auto) 2200 (9718-4153) /uL Emery # (Auto) 600 (0-900) /uL Eos # (Auto) 100 (0-450) /uL Baso # (Auto) 0 (0-100) /uL PT 11.2 (10.1-12.7) SECONDS INR 1.0 (0.9-1.3) APTT 31 (26.4-36.2) SECONDS D-Dimer (<230) ng/mL Sodium (137-145) mmol/L Potassium (3.4-5.1) mmol/L Chloride (98-107) mmol/L Carbon Dioxide (22-32) mmol/L BUN (9-20) mg/dL Creatinine (0.66-1.25) mg/dL Estimated GFR (>60) mL/min BUN/Creatinine Ratio (6-22) Glucose (80-110) mg/dL Calcium (8.4-10.2) mg/dL Total Bilirubin (0.2-1.3) mg/dL AST (17-59) IU/L ALT (<50) IU/L Alkaline Phosphatase (38-126) U/L Total Creatine Kinase (55-170) U/L CK-MB (CK-2) (<2.37) ng/mL CK-MB (CK-2) Rel Index (1.5-5.0) % Troponin I (0.01-0.034) ng/mL NT-Pro-B Natriuret Pep 15 (<125) pg/mL Total Protein (6.3-8.2) g/dL Albumin (3.5-5.0) g/dL Globulin (1.7-4.1) g/dL Albumin/Globulin Ratio (1.0-2.8) Lipase (23-300) U/L 07/25/20 07/25/20 Range/Units 10:26 10:26 WBC (4.5-11.0) X10^3/uL RBC (4.5-5.9) X10^6/uL Hgb (13.5-17.5) g/dL Hct (41-53) % MCV (80-100) fL MCH (26-34) PG MCHC (30-36) % RDW (11.6-14.8) % Plt Count (150-400) X10^3/uL Neut % (Auto) (50-75) % Lymph % (Auto) (25-40) % Emery % (Auto) (3-14) % Eos % (Auto) (2-4) % Baso % (Auto) (0-2) % Neut # (Auto) (7035-1703) /uL Lymph # (Auto) (4264-2632) /uL Emery # (Auto) (0-900) /uL Eos # (Auto) (0-450) /uL Baso # (Auto) (0-100) /uL PT (10.1-12.7) SECONDS INR (0.9-1.3) APTT (26.4-36.2) SECONDS D-Dimer 290 H (<230) ng/mL Sodium 137 (137-145) mmol/L Potassium 3.7 (3.4-5.1) mmol/L Chloride 101 (98-107) mmol/L Carbon Dioxide 29 (22-32) mmol/L BUN 23 H (9-20) mg/dL Creatinine 0.69 (0.66-1.25) mg/dL Estimated GFR > 60.0 (>60) mL/min BUN/Creatinine Ratio 33.3 H (6-22) Glucose 121 H (80-110) mg/dL Calcium 9.8 (8.4-10.2) mg/dL Total Bilirubin 0.7 (0.2-1.3) mg/dL AST 36 (17-59) IU/L ALT 40 (<50) IU/L Alkaline Phosphatase 61 (38-126) U/L Total Creatine Kinase 161 (55-170) U/L CK-MB (CK-2) 2.62 H (<2.37) ng/mL CK-MB (CK-2) Rel Index 1.6 (1.5-5.0) % Troponin I < 0.012 (0.01-0.034) ng/mL NT-Pro-B Natriuret Pep (<125) pg/mL Total Protein 7.6 (6.3-8.2) g/dL Albumin 4.5 (3.5-5.0) g/dL Globulin 3.1 (1.7-4.1) g/dL Albumin/Globulin Ratio 1.5 (1.0-2.8) Lipase 78 (23-300) U/L Imaging Data Chest x-ray: Radiologist's Impression: PROCEDURE: XR CHEST 1V INDICATIONS: chest pain TECHNIQUE: One view of the chest was acquired. COMPARISON: [facility], CHEST 1 VIEW, 07/23/2017, 11:21. FINDINGS: Slightly limited given slight lordotic positioning. Overlying EKG wires. Surgical changes and devices: None. Lungs and pleura: Linear densities overlying the left lung base likely representing atelectasis/scarring similar to prior exam.. No focal consolidation. No pneumothorax or large volume pleural effusion. Mediastinum: Mediastinal contours appear normal. Heart size is normal. Bones and chest wall: Degenerative changes of the shoulders and spine with high-riding humeral head suggestive of chronic rotator cuff tearing. No suspicious bony lesions. Overlying soft tissues appear unremarkable. IMPRESSION: No evidence of an acute cardiopulmonary abnormality. Dictated by: Jerry Collins D.O. on 07/25/2020 at 9:42 CT scan - chest: Radiologist's Impression: PROCEDURE: CT ANGIO CHEST PE PROTOCOL INDICATIONS: back and chest pain TECHNIQUE: After the administration of intravenous contrast, 2 mm thick sections acquired from the pulmonary apices to the posterior costophrenic angles. 3-dimensional maximum intensity projection (MIP) coronal and sagittal reformats were then acquired through the thorax. For radiation dose reduction, the following was used: automated exposure control, adjustment of mA and/or kV according to patient size. COMPARISON: [facility], XR CHEST 1V, 07/25/2020, 10:24. FINDINGS: Image quality: Excellent. Pulmonary arteries: Pulmonary arteries are normal in size, and demonstrate no intraluminal filling defects to suggest central pulmonary embolism. Main pulmonary artery is normal in course and caliber. Lungs and pleura: There is dependent atelectasis with more focal atelectasis/scarring within the lingula. No focal consolidation, pneumothorax, or pleural effusion. 3 millimeter left upper lobe pulmonary nodule (5; 100). There is very mild emphysematous changes. Mediastinum: Heart size is normal, without pericardial effusion. Marked multi-vessel coronary vascular calcifications. No mediastinal or hilar adenopathy. Thoracic aorta is normal in caliber and enhancement. Single enlarged right hilar lymph node measuring 1.4 centimeters in short axis diameter (4; 62). Esophagus is normal in caliber, without hiatal hernia. Bones and chest wall: No suspicious bony lesions. Ribs and thoracic spine appear intact throughout. Thyroid gland is unremarkable. No axillary or supraclavicular adenopathy. Abdomen: Nonobstructing nephroliths bilaterally. IMPRESSION: No evidence of pulmonary embolus. Marked multi-vessel coronary vascular calcifications. Very mild emphysematous changes. Single enlarged right hilar lymph node which may be reactive, of unknown clinical significance. 3 millimeter left upper lobe pulmonary nodule. Given emphysematous changes, consider chest CT in approximately 12 months. Dictated by: Jerry Collins D.O. on 07/25/2020 at 11:21 ECG Data Attestation: I personally reviewed and interpreted this ECG as follows: Prior ECG tracings: available for review Interpretation: Normal sinus rhythm rate 72 p.r. interval 197 QRS 105 QTC 420 acute waves noted anteriorly and lead 3 similar to previous EKG in 2017 no a T elevation or depressions MDM Narrative Medical decision making narrative: Patient's pain is significantly better after Flexeril. It seems to be related to musculoskeletal pain worse with bending over and taking deep breaths. It has been ongoing for 2 weeks troponin is negative EKG appears same. D-dimer was minimally elevated but ruled out for PE he with CT scan. At this time recommend outpatient follow-up. Discharge Plan Departure Patient Disposition: Home Clinical Impression: Radiculopathy affecting upper extremity Instructions: DI for Cervical Radiculopathy Activity Restrictions/Additional Instructions: *You have been diagnosed with radiculopathy *What to do: At this time seems to musculoskeletal in probable nerve pain. *Continue to take medications as directed--> SENT TO [facility] IN [place] Flexeril 1 tablet every 8 hours if needed for muscle spasm Christiana 1 tablet every 6 hours if needed for severe pain *Follow up with your primary care provider in 2-3 days *Return to ER if you should have increasing pain, shortness of breath or any new, worsening or concerning symptoms Prescriptions: New hydrocodone-acetaminophen 5-325 mg tablet 1 tab PO Q6H PRN (Reason: pain) Qty: 10 RF: 0 cyclobenzaprine 5 mg tablet 5 mg PO TID PRN (Reason: muscle spasm) Qty: 10 RF: 0 No Action hydrochlorothiazide 25 MG tablet 25 mg PO QDAY Qty: 0 RF: 0 lisinopril 40 MG tablet 20 mg PO QDAY Qty: 0 RF: 0 pravastatin 20 MG tablet 20 mg PO HS Qty: 0 RF: 0 venlafaxine 75 mg tablet extended release 24hr 75 mg PO QDAY Qty: 90 RF: 2 hydrocodone-acetaminophen 5-325 mg tablet 1 tab PO TID Qty: 30 RF: 0 celecoxib [Celebrex] 200 mg capsule 200 mg PO DAILY Qty: 90 RF: 2 Referrals: Ross Ramirez MD [Primary Care Provider] -
[2020-07-25 10:37] LABS: Add Manual Diff / Slide Review NO; Basophils Absolute Auto 0 /uL (0-100); Basophils Percent Auto 0.6 % (0-2); Eosinophils Absolute Auto 100 /uL (0-450); Eosinophils Percent Auto 1.5 % (2-4); Hematocrit 42.8 % (41-53); Lymphocytes Absolute Auto 2200 /uL (1100-4500); Lymphocytes Percent Auto 39.3 % (25-40); Mean Corpuscular Hemoglobin 32.4 PG (26-34); Mean Corpuscular Volume 92.8 fL (80-100); Monocytes Absolute Auto 600 /uL (0-900); Monocytes Percent Auto 10.8 % (3-14); Neutrophils Absolute Auto 2700 /uL (1500-7000); Neutrophils Percent Auto 47.8 % (50-75); Platelet Count 255 X10^3/uL (150-400); Red Blood Cell Count 4.62 X10^6/uL (4.5-5.9); Red Cell Distribution Width 13.1 % (11.6-14.8); White Blood Cell Count 5.6 X10^3/uL (4.5-11.0)
[2020-07-25] MEDS: KETOROLAC 60 MG/2 ML VIAL 15 MG IV (10:37)
[2020-07-25] MEDS: CYCLOBENZAPRINE 10 MG TABLET PO (10:38)
[2020-07-25 10:47] LABS: Prothrombin Time 11.2 SECONDS (10.1-12.7)
[2020-07-25 10:49] LABS: PTT Partial Thromboplastin Tim 31 SECONDS (26.4-36.2)
[2020-07-25 10:51] LABS: Alanine Aminotransferase 40 IU/L (<50); Albumin 4.5 g/dL (3.5-5.0); Albumin Globulin Ratio 1.5 (1.0-2.8); Alkaline Phosphatase 61 U/L (38-126); Aspartate Aminotransferase 36 IU/L (17-59); BUN Creatinine Ratio 33.3 (6-22); Bilirubin Total 0.7 mg/dL (0.2-1.3); Blood Urea Nitrogen 23 mg/dL (9-20); Calcium 9.8 mg/dL (8.4-10.2); Carbon Dioxide 29 mmol/L (22-32); Chloride 101 mmol/L (98-107); Creatine Kinase 161 U/L (55-170); Estimated Glomerular Filt Rate > 60.0 mL/min (>60); Globulin 3.1 g/dL (1.7-4.1); Glucose 121 mg/dL (80-110); HEMOLYSIS 16 (0-50); Lipase 78 U/L (23-300); Potassium 3.7 mmol/L (3.4-5.1); Sodium 137 mmol/L (137-145); Total Protein 7.6 g/dL (6.3-8.2)
[2020-07-25 10:59] LABS: NT-proBNP (BNP-Adult 18+) 15 pg/mL (<125)
[2020-07-25 11:02] LABS: Troponin I < 0.012 ng/mL (0.01-0.034)
[2020-07-25 11:06] LABS: CKMB % Relative Index 1.6 % (1.5-5.0); Creatine Kinase MB 2.62 ng/mL (<2.37)
[2020-07-25 11:23] LABS: D Dimer 290 ng/mL (<230)
--- NOTE | 2020-07-25 11:46 | DI.CT.S_ITS ---
PROCEDURE: CT ANGIO CHEST PE PROTOCOL INDICATIONS: back and chest pain TECHNIQUE: After the administration of intravenous contrast, 2 mm thick sections acquired from the pulmonary apices to the posterior costophrenic angles. 3-dimensional maximum intensity projection (MIP) coronal and sagittal reformats were then acquired through the thorax. For radiation dose reduction, the following was used: automated exposure control, adjustment of mA and/or kV according to patient size. COMPARISON: [facility], [place], XR CHEST 1V, 07/25/2020, 10:24. FINDINGS: Image quality: Excellent. Pulmonary arteries: Pulmonary arteries are normal in size, and demonstrate no intraluminal filling defects to suggest central pulmonary embolism. Main pulmonary artery is normal in course and caliber. Lungs and pleura: There is dependent atelectasis with more focal atelectasis/scarring within the lingula. No focal consolidation, pneumothorax, or pleural effusion. 3 millimeter left upper lobe pulmonary nodule (5; 100). There is very mild emphysematous changes. Mediastinum: Heart size is normal, without pericardial effusion. Marked multi-vessel coronary vascular calcifications. No mediastinal or hilar adenopathy. Thoracic aorta is normal in caliber and enhancement. Single enlarged right hilar lymph node measuring 1.4 centimeters in short axis diameter (4; 62). Esophagus is normal in caliber, without hiatal hernia. Bones and chest wall: No suspicious bony lesions. Ribs and thoracic spine appear intact throughout. Thyroid gland is unremarkable. No axillary or supraclavicular adenopathy. Abdomen: Nonobstructing nephroliths bilaterally. IMPRESSION: No evidence of pulmonary embolus. Marked multi-vessel coronary vascular calcifications. Very mild emphysematous changes. Single enlarged right hilar lymph node which may be reactive, of unknown clinical significance. 3 millimeter left upper lobe pulmonary nodule. Given emphysematous changes, consider chest CT in approximately 12 months. Dictated by: Jerry Collins D.O. on 07/25/2020 at 11:21 Approved by: Jerry Collins D.O. on 07/25/2020 at 11:39
== END 2020-07-25 13:26 | disposition home or self-care (01) ==
PROVIDERS: Emergency Provider Emergency Medicine; PCP Family Medicine
DX: M54.12 Radiculopathy, cervical region (principal); R07.9 Chest pain, unspecified; I10 Essential (primary) hypertension; E78.5 Hyperlipidemia, unspecified; M54.9 Dorsalgia, unspecified
CPT/HCPCS: 36415; 71045; 71275; 80053; 82550; 82553; 83690; 83880; 84484; 85025; 85379; 85610; 85730; 93005; 93010; 96374; 99284; J1885; Q9967

== ENCOUNTER 2020-08-19 15:07 | Emergency (ER) | payer OTHER, SELFPAY ==
[2020-08-19 15:10] VITALS: BP 151/83; PULSE 81; RESP 18; TEMP 36.3; O2SAT 96; BMI 31.4
[2020-08-19] MEDS: HYDROMORPHONE 1 MG INJ 0.5 MG IM ×2 (15:36→16:39)
[2020-08-19] MEDS: ONDANSETRON 4 MG ODT SL (15:36)
--- NOTE | 2020-08-19 16:01 | ED.NECK ---
HPI - Neck Pain/Injury <CHARAN Aguilar - Last Filed: 08/19/20 16:50> General Chief Complaint: Neck Pain/Injury Stated Complaint: states pinched nerve Time Seen by Provider: 08/19/20 15:23 Source: patient and family Mode of arrival: Wheelchair Limitations: no limitations History of Present Illness HPI Narrative: This is a 69-year-old male, nonsmoker, who has history of chronic AFib, spinal stenosis, hypertension, hyperlipidemia presents ED with significant other with chief complain of severe left thoracic pain below the scapula radiating to his neck and left ulna aspect of extremity with tingling. Patient reports onset of pain started in May. He has been using ice, heat, lidocaine patch, topical medication, Flexeril without much improvement. Patient has history of low back spinal stenosis and has been seen Dr. Chin with spinal injections and had cauterized nerve in March/April this year but upper thoracic back pain is relatively new. Patient is waiting for a referral renew will to Dr. Chin from PCP. Patient denies recent injury, lifting, or fall. Patient denies rash in his back, chest pain, dyspnea, or dizziness. Patient was evaluated in ED with similar pain on 07/25/2020 with cardiac workup and chest CT which were negative. Patient reports this time he does not have chest wall tenderness. Has an appointment with Dr. Ferreira on 08/25/20 but is not sure if he can wait that long. Related Data Home Medications Medication Instructions Recorded Confirmed hydrochlorothiazide 25 mg PO QDAY #0 12/26/10 07/26/18 lisinopril 20 mg PO QDAY #0 12/28/10 07/26/18 rosuvastatin 20 mg tablet mg PO DAILY tab 08/25/20 Previous Rx's Medication Instructions Recorded venlafaxine 75 mg tablet,extended 75 mg PO QDAY #90 tab 06/12/19 release 24 hr celecoxib 200 mg capsule 200 mg PO DAILY #90 cap 07/09/19 hydrocodone-acetaminophen 1 tab PO Q6H PRN #10 tab 07/25/20 cyclobenzaprine 10 mg PO TID PRN #12 tab 08/19/20 oxycodone 10 mg PO Q6H PRN #20 tab 08/19/20 diazepam [Valium] 5 mg PO Q12HR PRN #10 tab 08/21/20 gabapentin 600 mg tablet 600 mg PO .COMPLEX #90 tab 08/25/20 Allergies Allergy/AdvReac Type Severity Reaction Status Date / Time No Known Drug Allergies Allergy Verified 09/08/19 11:11 Review of Systems <CHARAN Aguilar - Last Filed: 08/19/20 16:50> Review of Systems Narrative: General: Denies fever, chills, fatigue, malaise, sweats. HEENT: Denies sinus pain, ear pain, sore throat, difficulty swallowing, dizziness. Respiratory: Denies dyspnea, cough, wheezing, hemoptysis, sputum. Cardiovascular: Denies chest pain, palpitations, orthopnea, edema. Gastrointestinal: Denies nausea, vomiting, abdominal pain, diarrhea, constipation, melena. : Denies dysuria, frequency, incontinence, hematuria, urinary retention. Musculoskeletal: See HPI Skin: Denies rash, skin lesions, or other. Neurologic: Denies weakness, headache, numbness, change in speech, confusion, seizures, incoordination. Psychiatric: No concerning psychosocial issues. 12-point review of systems is negative except for those stated above. Patient History <CHARAN Aguilar - Last Filed: 08/19/20 16:50> Medical History (Updated 08/25/20 @ 16:49 by Jaspal Barros DO) Chronic a-fib Deviated septum HNP (herniated nucleus pulposus), cervical Lumbosacral spondylosis with radiculopathy Right knee DJD Spinal stenosis at L4-L5 level Surgical History H/O hand surgery H/O hernia repair H/O knee surgery History of repair of anterior cruciate ligament of right knee Hx of appendectomy Family History Father Lymphoma Mother No problems noted. Sister Pancreatic cancer Sister COPD (chronic obstructive pulmonary disease) Social History Smoking Status: Never smoker Tobacco: How many years used: 0 quit status: quit date established (Never Started) Smoking Status: Never smoker alcohol intake frequency: 0-2 drinks per day Substance Use Type: does not use Exam <CHARAN Aguilar - Last Filed: 08/19/20 16:50> Narrative Exam Narrative: General appearance: well developed, well nourished, in acute distress from discomfort. Patient is holding left arm in his chest for comfort. Head: normocephalic, atraumatic, no scalp lesions, non-tender. ENT: Hearing grossly intact. Airway patent. Neck/Thyroid: neck supple, full range of motion, no visible masses or meningeal signs. No JVD, non-tender without lymphadenopathy. Skin: no suspicious rashes, lesions over visible areas. Warm and dry and appropriate color for ethnicity. Heart: no clubbing, no cyanosis, no edema. S1 and S2 normal. RRR w/o murmurs, clicks, or bruits. Lungs: Breathing even and unlabored. No stridor. No accessory muscles used. Able to speak in full sentences. Chest: normal shape and expansion. Abdomen: non-obese, non-distended. Neurologic: alert and oriented. Cognitive exam, POWERHOUSE HELPER and PNS grossly intact on informal exam. Psych: good eye contact, normal affect. Initial Vital Signs Initial Vital Signs: Vital Signs Temperature 97.3 F L 08/19/20 15:10 Pulse Rate 81 08/19/20 15:10 Respiratory Rate 18 08/19/20 15:10 Blood Pressure 151/83 H 08/19/20 15:10 Pulse Oximetry 96 08/19/20 15:10 Back/Spine/Pelvis Back: normal to inspection, back tenderness, No crepitance, No CVA tenderness, No ecchymosis, No erythema and No mass Thoracic/Lumbar Spine: thoracic and lumbar spine normal to inspection, pain with thoraco-lumbar ROM, paraspinal tenderness, thoraco-lumbar ROM limited, No thoracic spinal tenderness and other (Limited active range of motion. Bilateral upper extremity strength equal.) <Susan Lemus DO - Last Filed: 08/25/20 23:54> Narrative Exam Narrative: GENERAL: Alert and oriented x three, elderly male in moderate to severe distress. HEENT: Head normocephalic, atraumatic, EOMI, pupils reactive, face symmetric, moist mucous membranes NECK: Supple, full range of motion CARDIOVASCULAR: Regular rate and rhythm without murmurs, rubs or gallops. RESPIRATORY: Breath sounds equal bilaterally, no wheezes rales or rhonchi. ABDOMEN: Soft, nontender. Normoactive bowel sounds all 4 quadrants. No guarding or rebound, rigidity, no mass : No CVA tenderness BACK: No cervical, thoracic or lumbar vertebral point tenderness. Patient has normal range of motion. 2+ radial pulses bilaterally. Normal sensation throughout bilateral upper extremities. EXTREMITIES: Normal range of motion, no clubbing or edema. Neurovascularly intact. Patient does have reproducible pain with palpation of the shoulder region. Patient prefers to hold his arm straight at his side, he has full motion of wrist, elbow but prefers not to move at the shoulder. Back Up Scan Coordinator were equal bilaterally. NEUROLOGICAL: Cranial nerves II through XII grossly intact. Moving all extremities SKIN: Warm, dry, no petechiae, no rashes or lesions. Initial Vital Signs Initial Vital Signs: Vital Signs Temperature 97.3 F L 08/19/20 15:10 Pulse Rate 81 08/19/20 15:10 Respiratory Rate 18 08/19/20 15:10 Blood Pressure 151/83 H 08/19/20 15:10 Pulse Oximetry 96 08/19/20 15:10 <Gerber Hercules DO - Last Filed: 08/20/20 01:05> Initial Vital Signs Initial Vital Signs: Vital Signs Temperature 97.3 F L 08/19/20 15:10 Pulse Rate 81 08/19/20 15:10 Respiratory Rate 18 08/19/20 15:10 Blood Pressure 151/83 H 08/19/20 15:10 Pulse Oximetry 96 08/19/20 15:10 Scores <CHARAN Aguilar - Last Filed: 08/19/20 16:50> GCS [place] coma scale eye opening: Spontaneous [place] coma scale verbal response: Orientated [place] coma scale motor response: Obey commands [place] coma scale total score: 15 qSOFA Altered Mental Status (GCS <15): No Respiratory rate greater than/equal to 22: No Systolic blood pressure less than or equal to 100: No qSOFA Total: 0 0-1 Not High Risk 1-3 High risk Course <CHARAN Aguilar - Last Filed: 08/19/20 16:50> Orders Ordered: Discontinued Medications Hydrocodone Bitart/Acetaminophen (Hydrocodone/Acet 5/325 Prepack) 1 bottle MISC SEEINSTR ONE Stop: 08/19/20 20:48 Last Admin: 08/19/20 21:11 Dose: 1 bottle Documented by: KING Cyclobenzaprine HCl (Cyclobenzaprine 10 Mg Tablet) 10 mg PO NOW ONE Stop: 08/19/20 16:06 Last Admin: 08/19/20 16:18 Dose: 10 mg Documented by: ASIA Cyclobenzaprine HCl (Cyclobenzaprine 10 Mg Prepack) 1 bottle MISC SEEINSTR ONE Stop: 08/19/20 20:48 Last Admin: 08/19/20 21:11 Dose: 1 bottle Documented by: KING Hydromorphone HCl (Hydromorphone 1 Mg Inj) 0.5 mg IM NOW ONE Stop: 08/19/20 15:32 Last Admin: 08/19/20 15:36 Dose: 0.5 mg Documented by: ASIA Hydromorphone HCl (Hydromorphone 1 Mg Inj) 0.5 mg IM NOW ONE Stop: 08/19/20 16:28 Last Admin: 08/19/20 16:39 Dose: 0.5 mg Documented by: SUSAN Hydromorphone HCl (Hydromorphone 1 Mg Inj) 1 mg IV NOW ONE Stop: 08/19/20 18:26 Last Admin: 08/19/20 18:45 Dose: 1 mg Documented by: ASIA Hydromorphone HCl (Hydromorphone 1 Mg Inj) 1 mg IV NOW ONE Stop: 08/19/20 19:14 Last Admin: 08/19/20 19:26 Dose: 1 mg Documented by: ASIA Ketorolac Tromethamine (Ketorolac 60 Mg/2 Ml Vial) 15 mg IV NOW ONE Stop: 08/19/20 18:24 Last Admin: 08/19/20 18:43 Dose: 15 mg Documented by: ASIA Lidocaine (Lidocaine Patch 1 Each Adh..Patch) 1 each TOP NOW ONE Stop: 08/19/20 16:06 Last Admin: 08/19/20 16:18 Dose: 1 each Documented by: ASIA Methylprednisolone (Methylprednisolone 125 Mg/2 Ml Vial) 80 mg IV NOW ONE Stop: 08/19/20 18:24 Last Admin: 08/19/20 18:43 Dose: 80 mg Documented by: ASIA Ondansetron HCl (Ondansetron 4 Mg Odt) 4 mg SL NOW ONE Stop: 08/19/20 15:32 Last Admin: 08/19/20 15:36 Dose: 4 mg Documented by: ASIA Prednisone (Prednisone 20 Mg Prepack) 1 bottle [facility] [place] SEEINSTR ONE Stop: 08/19/20 20:48 Last Admin: 08/19/20 21:11 Dose: 1 bottle Documented by: KING Reevaluation(s) Reevaluation #1: Patient reports pain not improving after the 1st dose of Dilaudid 0.5mg IM after 15-20 min. Informed patient and spouse that this could be repeated in 10-15 min and will add Flexeril and Lidocaine patch in addition. Time: 15:55 Reevaluation #2: Medicating the patient with additional Dilaudid 0.5 mg w/o much improvement with the previous medication regimen. SPouse reports C spine Xray has been ordered by Dr. Ferreira and will proceed with this today. Time: 16:41 Vital Signs Vital signs: Vital Signs - 8 hr 08/19/20 19:40 08/19/20 20:05 08/19/20 21:07 Temperature 98.1 F Pulse Rate 67 70 77 Respiratory Rate 16 Blood Pressure 158/85 H 156/79 H 158/76 H Pulse Oximetry 74 L 91 96 08/19/20 21:22 Temperature Pulse Rate 79 Respiratory Rate 16 Blood Pressure 158/76 H Pulse Oximetry 95 <Susan Lemus, - Last Filed: 08/25/20 23:54> Orders Ordered: Discontinued Medications Hydrocodone Bitart/Acetaminophen (Hydrocodone/Acet 5/325 Prepack) 1 bottle [facility] [place] SEEINSTR ONE Stop: 08/19/20 20:48 Last Admin: 08/19/20 21:11 Dose: 1 bottle Documented by: KING Cyclobenzaprine HCl (Cyclobenzaprine 10 Mg Tablet) 10 mg PO NOW ONE Stop: 08/19/20 16:06 Last Admin: 08/19/20 16:18 Dose: 10 mg Documented by: ASIA Cyclobenzaprine HCl (Cyclobenzaprine 10 Mg Prepack) 1 bottle MISC SEEINSTR ONE Stop: 08/19/20 20:48 Last Admin: 08/19/20 21:11 Dose: 1 bottle Documented by: KING Hydromorphone HCl (Hydromorphone 1 Mg Inj) 0.5 mg IM NOW ONE Stop: 08/19/20 15:32 Last Admin: 08/19/20 15:36 Dose: 0.5 mg Documented by: ASIA Hydromorphone HCl (Hydromorphone 1 Mg Inj) 0.5 mg IM NOW ONE Stop: 08/19/20 16:28 Last Admin: 08/19/20 16:39 Dose: 0.5 mg Documented by: SUSAN Hydromorphone HCl (Hydromorphone 1 Mg Inj) 1 mg IV NOW ONE Stop: 08/19/20 18:26 Last Admin: 08/19/20 18:45 Dose: 1 mg Documented by: ASIA Hydromorphone HCl (Hydromorphone 1 Mg Inj) 1 mg IV NOW ONE Stop: 08/19/20 19:14 Last Admin: 08/19/20 19:26 Dose: 1 mg Documented by: ASIA Ketorolac Tromethamine (Ketorolac 60 Mg/2 Ml Vial) 15 mg IV NOW ONE Stop: 08/19/20 18:24 Last Admin: 08/19/20 18:43 Dose: 15 mg Documented by: ASIA Lidocaine (Lidocaine Patch 1 Each Adh..Patch) 1 each TOP NOW ONE Stop: 08/19/20 16:06 Last Admin: 08/19/20 16:18 Dose: 1 each Documented by: ASIA Methylprednisolone (Methylprednisolone 125 Mg/2 Ml Vial) 80 mg IV NOW ONE Stop: 08/19/20 18:24 Last Admin: 08/19/20 18:43 Dose: 80 mg Documented by: ASIA Ondansetron HCl (Ondansetron 4 Mg Odt) 4 mg SL NOW ONE Stop: 08/19/20 15:32 Last Admin: 08/19/20 15:36 Dose: 4 mg Documented by: ASIA Prednisone (Prednisone 20 Mg Prepack) 1 bottle MISC SEEINSTR ONE Stop: 08/19/20 20:48 Last Admin: 08/19/20 21:11 Dose: 1 bottle Documented by: KING Vital Signs Vital signs: Vital Signs - 8 hr 08/19/20 19:40 08/19/20 20:05 08/19/20 21:07 Temperature 98.1 F Pulse Rate 67 70 77 Respiratory Rate 16 Blood Pressure 158/85 H 156/79 H 158/76 H Pulse Oximetry 74 L 91 96 08/19/20 21:22 Temperature Pulse Rate 79 Respiratory Rate 16 Blood Pressure 158/76 H Pulse Oximetry 95 <Gerber Hercules, DO - Last Filed: 08/20/20 01:05> Orders Ordered: Discontinued Medications Hydrocodone Bitart/Acetaminophen (Hydrocodone/Acet 5/325 Prepack) 1 bottle MISC SEEINSTR ONE Stop: 08/19/20 20:48 Last Admin: 08/19/20 21:11 Dose: 1 bottle Documented by: KING Cyclobenzaprine HCl (Cyclobenzaprine 10 Mg Tablet) 10 mg PO NOW ONE Stop: 08/19/20 16:06 Last Admin: 08/19/20 16:18 Dose: 10 mg Documented by: ASIA Cyclobenzaprine HCl (Cyclobenzaprine 10 Mg Prepack) 1 bottle MISC SEEINSTR ONE Stop: 08/19/20 20:48 Last Admin: 08/19/20 21:11 Dose: 1 bottle Documented by: KING Hydromorphone HCl (Hydromorphone 1 Mg Inj) 0.5 mg IM NOW ONE Stop: 08/19/20 15:32 Last Admin: 08/19/20 15:36 Dose: 0.5 mg Documented by: ASIA Hydromorphone HCl (Hydromorphone 1 Mg Inj) 0.5 mg IM NOW ONE Stop: 08/19/20 16:28 Last Admin: 08/19/20 16:39 Dose: 0.5 mg Documented by: SUSAN Hydromorphone HCl (Hydromorphone 1 Mg Inj) 1 mg IV NOW ONE Stop: 08/19/20 18:26 Last Admin: 08/19/20 18:45 Dose: 1 mg Documented by: ASIA Hydromorphone HCl (Hydromorphone 1 Mg Inj) 1 mg IV NOW ONE Stop: 08/19/20 19:14 Last Admin: 08/19/20 19:26 Dose: 1 mg Documented by: ASIA Ketorolac Tromethamine (Ketorolac 60 Mg/2 Ml Vial) 15 mg IV NOW ONE Stop: 08/19/20 18:24 Last Admin: 08/19/20 18:43 Dose: 15 mg Documented by: ASIA Lidocaine (Lidocaine Patch 1 Each Adh..Patch) 1 each TOP NOW ONE Stop: 08/19/20 16:06 Last Admin: 08/19/20 16:18 Dose: 1 each Documented by: ASIA Methylprednisolone (Methylprednisolone 125 Mg/2 Ml Vial) 80 mg IV NOW ONE Stop: 08/19/20 18:24 Last Admin: 08/19/20 18:43 Dose: 80 mg Documented by: ASIA Ondansetron HCl (Ondansetron 4 Mg Odt) 4 mg SL NOW ONE Stop: 08/19/20 15:32 Last Admin: 08/19/20 15:36 Dose: 4 mg Documented by: ASIA Prednisone (Prednisone 20 Mg Prepack) 1 bottle MISC SEEINSTR ONE Stop: 08/19/20 20:48 Last Admin: 08/19/20 21:11 Dose: 1 bottle Documented by: KING Vital Signs Vital signs: Vital Signs - 8 hr 08/19/20 19:40 08/19/20 20:05 08/19/20 21:07 Temperature 98.1 F Pulse Rate 67 70 77 Respiratory Rate 16 Blood Pressure 158/85 H 156/79 H 158/76 H Pulse Oximetry 74 L 91 96 08/19/20 21:22 Temperature Pulse Rate 79 Respiratory Rate 16 Blood Pressure 158/76 H Pulse Oximetry 95 MDM - Neck Pain/Injury <CHARAN Aguilar - Last Filed: 08/19/20 16:50> Differential Diagnosis Differential diagnosis: Likely disc disorder of cervical region, cervical radiculopathy and other (thoracic radiculopathy, ACS) Medical Records Attestation: I reviewed the patient's medical records. Lab Data Result diagrams: 08/19/20 18:36 08/19/20 18:36 Labs: Lab Results 08/19/20 08/19/20 08/19/20 Range/Units 18:36 18:36 18:36 WBC 8.0 (4.5-11.0) X10^3/uL RBC 4.39 L (4.5-5.9) X10^6/uL Hgb 14.3 (13.5-17.5) g/dL Hct 40.9 L (41-53) % MCV 93.1 (80-100) fL MCH 32.6 (26-34) PG MCHC 35.1 (30-36) % RDW 12.9 (11.6-14.8) % Plt Count 241 (150-400) X10^3/uL Neut % (Auto) 68.7 (50-75) % Lymph % (Auto) 21.7 L (25-40) % [place] % (Auto) 7.9 (3-14) % Eos % (Auto) 1.2 L (2-4) % Baso % (Auto) 0.5 (0-2) % Neut # (Auto) 5500 (1139-1182) /uL Lymph # (Auto) 1700 (4578-4782) /uL [place] # (Auto) 600 (0-900) /uL Eos # (Auto) 100 (0-450) /uL Baso # (Auto) 0 (0-100) /uL D-Dimer (<230) ng/mL Sodium 136 L (137-145) mmol/L Potassium 4.3 (3.4-5.1) mmol/L Chloride 100 (98-107) mmol/L Carbon Dioxide 32 (22-32) mmol/L BUN 25 H (9-20) mg/dL Creatinine 0.75 (0.66-1.25) mg/dL Estimated GFR > 60.0 (>60) mL/min BUN/Creatinine Ratio 33.3 H (6-22) Glucose 110 (80-110) mg/dL Calcium 9.6 (8.4-10.2) mg/dL Total Creatine Kinase 157 (55-170) U/L CK-MB (CK-2) 3.38 H (<2.37) ng/mL CK-MB (CK-2) Rel Index 2.2 (1.5-5.0) % Troponin I < 0.012 (0.01-0.034) ng/mL COVID-19 PCR (Negative) 08/19/20 08/19/20 Range/Units 18:36 20:16 WBC (4.5-11.0) X10^3/uL RBC (4.5-5.9) X10^6/uL Hgb (13.5-17.5) g/dL Hct (41-53) % MCV (80-100) fL MCH (26-34) PG MCHC (30-36) % RDW (11.6-14.8) % Plt Count (150-400) X10^3/uL Neut % (Auto) (50-75) % Lymph % (Auto) (25-40) % [place] % (Auto) (3-14) % Eos % (Auto) (2-4) % Baso % (Auto) (0-2) % Neut # (Auto) (0314-8904) /uL Lymph # (Auto) (1030-5439) /uL [place] # (Auto) (0-900) /uL Eos # (Auto) (0-450) /uL Baso # (Auto) (0-100) /uL D-Dimer 232 H (<230) ng/mL Sodium (137-145) mmol/L Potassium (3.4-5.1) mmol/L Chloride (98-107) mmol/L Carbon Dioxide (22-32) mmol/L BUN (9-20) mg/dL Creatinine (0.66-1.25) mg/dL Estimated GFR (>60) mL/min BUN/Creatinine Ratio (6-22) Glucose (80-110) mg/dL Calcium (8.4-10.2) mg/dL Total Creatine Kinase (55-170) U/L CK-MB (CK-2) (<2.37) ng/mL CK-MB (CK-2) Rel Index (1.5-5.0) % Troponin I (0.01-0.034) ng/mL COVID-19 PCR Negative (Negative) ECG Data Attestation: I personally reviewed and interpreted this ECG as follows: Prior ECG tracings: available for review Interpretation: Sinus rhythm with first-degree AV block rate at 64. Left dominant axis. RI intervals 225, QRS duration 106, QT/QTC 391/401 Q-waves in inferior leads. Similar EKG trace from previous EKG on 07/25/20. [facility] Narrative Medical decision making narrative: This is a 69-year-old male presents to ED with severe left upper thoracic pain with radiation to his neck and ulna aspect of left upper extremity. Patient has limited active range of motion and holding his left arm close to his chest for comfort. Bilateral strength in upper extremities equal. Patient reports tingling sensation in left hand. No rash/warmth/redness noted in thoracic region. EKG obtained to rule out ACS and no acute ST changes but noted Q-waves in inferior leads with similar EKG tracing from previous ones. Patient denies chest pain, dyspnea, lightheadedness. Patient reports waiting for Dr. Barros is a appointment on 08/25/20 and has of C-spine x-ray test has been ordered by Dr. feldman which will proceed today. Patient was medicated with 2 doses of 0.5 Dilaudid IM injections, Zofran sublingual, Flexeril 10 mg p.o., and lidocaine patch with very marginal improvement. Labs were deferred for cardiac work up since patient has been having pain for last 2 months without changes but severely. Patient denies cardiac related symptoms. Patient had negative cardiac workups done on 07/25/2020. Patient is signed out to Dr. Lemus for reassessment. <Susan Lemus, DO - Last Filed: 08/25/20 23:54> Lab Data Attestation: I reviewed the patient's lab results. Labs: Lab Results 08/19/20 08/19/20 08/19/20 Range/Units 18:36 18:36 18:36 WBC 8.0 (4.5-11.0) X10^3/uL RBC 4.39 L (4.5-5.9) X10^6/uL Hgb 14.3 (13.5-17.5) g/dL Hct 40.9 L (41-53) % MCV 93.1 (80-100) fL MCH 32.6 (26-34) PG MCHC 35.1 (30-36) % RDW 12.9 (11.6-14.8) % Plt Count 241 (150-400) X10^3/uL Neut % (Auto) 68.7 (50-75) % Lymph % (Auto) 21.7 L (25-40) % [place] % (Auto) 7.9 (3-14) % Eos % (Auto) 1.2 L (2-4) % Baso % (Auto) 0.5 (0-2) % Neut # (Auto) 5500 (9650-2763) /uL Lymph # (Auto) 1700 (9232-4463) /uL [place] # (Auto) 600 (0-900) /uL Eos # (Auto) 100 (0-450) /uL Baso # (Auto) 0 (0-100) /uL D-Dimer (<230) ng/mL Sodium 136 L (137-145) mmol/L Potassium 4.3 (3.4-5.1) mmol/L Chloride 100 (98-107) mmol/L Carbon Dioxide 32 (22-32) mmol/L BUN 25 H (9-20) mg/dL Creatinine 0.75 (0.66-1.25) mg/dL Estimated GFR > 60.0 (>60) mL/min BUN/Creatinine Ratio 33.3 H (6-22) Glucose 110 (80-110) mg/dL Calcium 9.6 (8.4-10.2) mg/dL Total Creatine Kinase 157 (55-170) U/L CK-MB (CK-2) 3.38 H (<2.37) ng/mL CK-MB (CK-2) Rel Index 2.2 (1.5-5.0) % Troponin I < 0.012 (0.01-0.034) ng/mL COVID-19 PCR (Negative) 08/19/20 08/19/20 Range/Units 18:36 20:16 WBC (4.5-11.0) X10^3/uL RBC (4.5-5.9) X10^6/uL Hgb (13.5-17.5) g/dL Hct (41-53) % MCV (80-100) fL MCH (26-34) PG MCHC (30-36) % RDW (11.6-14.8) % Plt Count (150-400) X10^3/uL Neut % (Auto) (50-75) % Lymph % (Auto) (25-40) % [place] % (Auto) (3-14) % Eos % (Auto) (2-4) % Baso % (Auto) (0-2) % Neut # (Auto) (9421-3802) /uL Lymph # (Auto) (5789-1626) /uL [place] # (Auto) (0-900) /uL Eos # (Auto) (0-450) /uL Baso # (Auto) (0-100) /uL D-Dimer 232 H (<230) ng/mL Sodium (137-145) mmol/L Potassium (3.4-5.1) mmol/L Chloride (98-107) mmol/L Carbon Dioxide (22-32) mmol/L BUN (9-20) mg/dL Creatinine (0.66-1.25) mg/dL Estimated GFR (>60) mL/min BUN/Creatinine Ratio (6-22) Glucose (80-110) mg/dL Calcium (8.4-10.2) mg/dL Total Creatine Kinase (55-170) U/L CK-MB (CK-2) (<2.37) ng/mL CK-MB (CK-2) Rel Index (1.5-5.0) % Troponin I (0.01-0.034) ng/mL COVID-19 PCR Negative (Negative) Imaging Data cervical spine xray: Radiologist's Impression: [address] [id number] ReportSigned Patient: Korin LockettOHR#: [id number]: 9Acct:[id number]/Sex: 69 / MDate of Service: 08/19/20Loc: EDAccession Number: [id number] Procedure: XR cervical spine 4V or 5V Ordering Provider: Jose Mcclellan PROCEDURE: XR CERVICAL SPINE 4V OR 5V INDICATIONS: upper left back radiculopathy TECHNIQUE: 6 images of the cervical spine were acquired, including bilateral oblique views. COMPARISON: None. FINDINGS: Bones: No fractures or dislocations to the C6 level. Reversal of the normal cervical lordosis is seen, with the apex at the C4 level. Mild anterolisthesis is seen at the C3-C4 level. There is [id number] disc space narrowing seen at C3-C4 and C4-C5, moderate disc space narrowing at C5-C6. On oblique images, there is moderate neural foraminal narrowing seen at C2-C3, with moderate to severe neural foraminal narrowing seen on the left at C3-C4, C4-C5, C5-C6, and C6-C7. On the right, there is [id number] neural foraminal narrowing seen at C2-C3 moderate to severe neural foraminal narrowing seen at C3-C4, C4-C5, C5-C6, and C6-C7. Soft tissues: No prevertebral soft tissue swelling. The visualized lung apices are unremarkable. IMPRESSION: Prominent cervical spine degenerative changes are seen by plain film, including numerous levels of moderate to severe neural foraminal narrowing on each side. Dictated by: Raimundo Murillo M.D. on 08/19/2020 at 16:23 Approved by: Raimundo Murillo M.D. on 08/19/2020 at 16:26 [facility] Narrative Medical decision making narrative: Patient signed out to myself by SHIELD INSTALLER. Patient was seen and evaluated bedside by myself. He appears quite uncomfortable even after Dilaudid 0.5 mg x 2, muscle relaxants and lidocaine patch. Patient's imaging was reviewed he has bilateral foraminal narrowing and likely has nerve impingement. Patient on evaluation and after review of HPI and ROS does seem to be more musculoskeletal, no red flag symptoms in terms of requiring emergent surgical intervention at this time but he does require pain management. EKG was reviewed, cardiac workup on his last visit on 07/25 with these symptoms. Labs were repeated today although my suspicion for cardiac cause is low. Patient may require hospitalization for pain control. Patient does have follow-up with Dr. Barros'cesia and patient preference is to return home at this time. Patient given Toradol, Dialudid IV and a dose of methylprednisolone and signed out to Dr. Hercules while awaiting patient's response to pain medication. He does appear significant improved than initially but is still quite uncomfortable and an additional dose of dilaudid was ordered. <Gerber Hercules, - Last Filed: 08/20/20 01:05> Lab Data Labs: Lab Results 08/19/20 08/19/20 08/19/20 Range/Units 18:36 18:36 18:36 WBC 8.0 (4.5-11.0) X10^3/uL RBC 4.39 L (4.5-5.9) X10^6/uL Hgb 14.3 (13.5-17.5) g/dL Hct 40.9 L (41-53) % MCV 93.1 (80-100) fL MCH 32.6 (26-34) PG MCHC 35.1 (30-36) % RDW 12.9 (11.6-14.8) % Plt Count 241 (150-400) X10^3/uL Neut % (Auto) 68.7 (50-75) % Lymph % (Auto) 21.7 L (25-40) % [place] % (Auto) 7.9 (3-14) % Eos % (Auto) 1.2 L (2-4) % Baso % (Auto) 0.5 (0-2) % Neut # (Auto) 5500 (1488-0129) /uL Lymph # (Auto) 1700 (8591-3148) /uL [place] # (Auto) 600 (0-900) /uL Eos # (Auto) 100 (0-450) /uL Baso # (Auto) 0 (0-100) /uL D-Dimer (<230) ng/mL Sodium 136 L (137-145) mmol/L Potassium 4.3 (3.4-5.1) mmol/L Chloride 100 (98-107) mmol/L Carbon Dioxide 32 (22-32) mmol/L BUN 25 H (9-20) mg/dL Creatinine 0.75 (0.66-1.25) mg/dL Estimated GFR > 60.0 (>60) mL/min BUN/Creatinine Ratio 33.3 H (6-22) Glucose 110 (80-110) mg/dL Calcium 9.6 (8.4-10.2) mg/dL Total Creatine Kinase 157 (55-170) U/L CK-MB (CK-2) 3.38 H (<2.37) ng/mL CK-MB (CK-2) Rel Index 2.2 (1.5-5.0) % Troponin I < 0.012 (0.01-0.034) ng/mL COVID-19 PCR (Negative) 08/19/20 08/19/20 Range/Units 18:36 20:16 WBC (4.5-11.0) X10^3/uL RBC (4.5-5.9) X10^6/uL Hgb (13.5-17.5) g/dL Hct (41-53) % MCV (80-100) fL MCH (26-34) PG MCHC (30-36) % RDW (11.6-14.8) % Plt Count (150-400) X10^3/uL Neut % (Auto) (50-75) % Lymph % (Auto) (25-40) % [place] % (Auto) (3-14) % Eos % (Auto) (2-4) % Baso % (Auto) (0-2) % Neut # (Auto) (7770-4781) /uL Lymph # (Auto) (9813-3366) /uL [place] # (Auto) (0-900) /uL Eos # (Auto) (0-450) /uL Baso # (Auto) (0-100) /uL D-Dimer 232 H (<230) ng/mL Sodium (137-145) mmol/L Potassium (3.4-5.1) mmol/L Chloride (98-107) mmol/L Carbon Dioxide (22-32) mmol/L BUN (9-20) mg/dL Creatinine (0.66-1.25) mg/dL Estimated GFR (>60) mL/min BUN/Creatinine Ratio (6-22) Glucose (80-110) mg/dL Calcium (8.4-10.2) mg/dL Total Creatine Kinase (55-170) U/L CK-MB (CK-2) (<2.37) ng/mL CK-MB (CK-2) Rel Index (1.5-5.0) % Troponin I (0.01-0.034) ng/mL COVID-19 PCR Negative (Negative) MDM Narrative Medical decision making narrative: Dr hercules: received turnover from Dr lemus reviewed patient's history and physical. Reviewed his prior notes. Reviewed his labs from today. Reviewed his EKG from today which was a sinus rhythm with 1st degree AV block. Patient was seen here in the emergency department within the past 60 days for same symptoms that brought him in today. Had an extensive cardiac workup to include a CTA of his chest which showed no pulmonary embolism. Since that time he has followed up with his primary doctor and has had a stress test within the past 4 weeks which he reports was unremarkable. Has had multiple doses of pain medicine today without much improvement. He received 1 final dose of Dilaudid and afterwards seemed to improve quite a bit. He continued to have left-sided chest pain that was reproducible however he did have an episode where his oxygen saturations dropped into the 80s with a good waveform. This responded very quickly with having the patient take a deep breath and also repositioning of the pulse oximeter. Unsure what the etiology of this episode of hypoxia was. He was tested for COVID and was negative. His troponin was negative. His D-dimer was negative. This was the exact pain that he had a couple weeks ago where he had a CT scan of his chest which showed no pulmonary embolism. Considered other etiologies such as dissection however his pain was clearly reproducible with touching his left chest. The numbness and tingling down his arm is not new and I feel that the symptoms are unlikely vascular in origin. Had a long discussion with the patient and his . I feel that we have done a very extensive workup both during this visit and also his prior visit for cardiopulmonary etiology. He is neurovascularly intact in the left upper extremity. I do feel that this is musculoskeletal verses neurologic however do not feel there is an emergent issue based on my evaluation in review of his workup today. Will send home with symptom control. He does have a follow-up with pain management next week. We discussed return precautions and follow-up instructions. Both he and his who is at bedside expressed understanding and agreement. Discharge Plan Departure Patient Disposition: Home Clinical Impression: Cervical radiculopathy Instructions: DI for Cervical Radiculopathy Activity Restrictions/Additional Instructions: Follow up with Dr. Ferreira for your appointment on Sunday. Call this Sunday to see if they can move your appointment to a sooner time. Also included is referral to orthopedic surgery as you may find this helpful. Take medications as prescribed. Take steroids until gone. Please medications can make you sleepy do not drive, perform hazardous activities or make any major decisions while taking them. Make sure you take a stool softener while taking any narcotic pain medication. Return to the ER for fevers, rapidly worsening symptoms, new weakness, numbness, loss of sensation, inability to manager audit, new chest pain shortness of breath lightheadedness or passing out or other new or concerning symptoms. Prescriptions: New oxycodone 10 mg tablet 10 mg PO Q6H PRN (Reason: pain) Qty: 20 RF: 0 cyclobenzaprine 10 mg tablet 10 mg PO TID PRN (Reason: muscle spasm) Qty: 12 RF: 0 No Action hydrochlorothiazide 25 MG tablet 25 mg PO QDAY Qty: 0 RF: 0 lisinopril 40 MG tablet 20 mg PO QDAY Qty: 0 RF: 0 venlafaxine 75 mg tablet extended release 24hr 75 mg PO QDAY Qty: 90 RF: 2 diazepam [Valium] 5 mg tablet 5 mg PO Q12HR PRN (Reason: muscle spasm) Qty: 10 RF: 0 hydrocodone-acetaminophen 5-325 mg tablet 1 tab PO Q6H PRN (Reason: pain) Qty: 10 RF: 0 celecoxib [Celebrex] 200 mg capsule 200 mg PO DAILY Qty: 90 RF: 2 rosuvastatin 20 mg tablet PO DAILY RF: 0 gabapentin 600 mg tablet 600 mg PO .COMPLEX Qty: 90 RF: 2 Referrals: Ross Ramirez MD [Primary Care Provider] -
[2020-08-19] MEDS: LIDOCAINE PATCH 1 EACH ADH..PATCH TOP (16:18)
[2020-08-19] MEDS: CYCLOBENZAPRINE 10 MG TABLET PO (16:18)
--- NOTE | 2020-08-19 16:41 | DI.RAD.S_ITS ---
PROCEDURE: XR CERVICAL SPINE 4V OR 5V INDICATIONS: upper left back radiculopathy TECHNIQUE: 6 images of the cervical spine were acquired, including bilateral oblique views. COMPARISON: None. FINDINGS: Bones: No fractures or dislocations to the C6 level. Reversal of the normal cervical lordosis is seen, with the apex at the C4 level. Mild anterolisthesis is seen at the C3-C4 level. There is jvsu-wv-diktqymn disc space narrowing seen at C3-C4 and C4-C5, moderate disc space narrowing at C5-C6. On oblique images, there is moderate neural foraminal narrowing seen at C2-C3, with moderate to severe neural foraminal narrowing seen on the left at C3-C4, C4-C5, C5-C6, and C6-C7. On the right, there is [id number] neural foraminal narrowing seen at C2-C3 moderate to severe neural foraminal narrowing seen at C3-C4, C4-C5, C5-C6, and C6-C7. Soft tissues: No prevertebral soft tissue swelling. The visualized lung apices are unremarkable. IMPRESSION: Prominent cervical spine degenerative changes are seen by plain film, including numerous levels of moderate to severe neural foraminal narrowing on each side. Dictated by: Raimundo Murillo M.D. on 08/19/2020 at 16:23 Approved by: Raimundo Murillo M.D. on 08/19/2020 at 16:26
[2020-08-19] MEDS: methylPREDNISolone 125 MG/2 ML VIAL 80 MG IV (18:43)
[2020-08-19] MEDS: KETOROLAC 60 MG/2 ML VIAL 15 MG IV (18:43)
[2020-08-19 18:44] LABS: Add Manual Diff / Slide Review NO; Basophils Absolute Auto 0 /uL (0-100); Basophils Percent Auto 0.5 % (0-2); Eosinophils Absolute Auto 100 /uL (0-450); Eosinophils Percent Auto 1.2 % (2-4); Hematocrit 40.9 % (41-53); Hemoglobin 14.3 g/dL (13.5-17.5); Lymphocytes Absolute Auto 1700 /uL (1100-4500); Lymphocytes Percent Auto 21.7 % (25-40); Mean Corpuscular HGB Conc 35.1 % (30-36); Mean Corpuscular Hemoglobin 32.6 PG (26-34); Mean Corpuscular Volume 93.1 fL (80-100); Monocytes Absolute Auto 600 /uL (0-900); Monocytes Percent Auto 7.9 % (3-14); Neutrophils Absolute Auto 5500 /uL (1500-7000); Neutrophils Percent Auto 68.7 % (50-75); Platelet Count 241 X10^3/uL (150-400); Red Blood Cell Count 4.39 X10^6/uL (4.5-5.9); Red Cell Distribution Width 12.9 % (11.6-14.8)
[2020-08-19] MEDS: HYDROMORPHONE 1 MG INJ IV ×2 (18:45→19:26)
[2020-08-19 18:55] LABS: BUN Creatinine Ratio 33.3 (6-22); Blood Urea Nitrogen 25 mg/dL (9-20); Calcium 9.6 mg/dL (8.4-10.2); Carbon Dioxide 32 mmol/L (22-32); Chloride 100 mmol/L (98-107); Estimated Glomerular Filt Rate > 60.0 mL/min (>60); Glucose 110 mg/dL (80-110); HEMOLYSIS < 15 (0-50); Potassium 4.3 mmol/L (3.4-5.1); Sodium 136 mmol/L (137-145)
[2020-08-19 19:40] VITALS: BP 158/85; PULSE 67; RESP 16; TEMP 36.7; O2SAT 74
[2020-08-19 20:05] VITALS: BP 156/79; PULSE 70; O2SAT 91
[2020-08-19 20:13] LABS: Creatine Kinase 157 U/L (55-170)
[2020-08-19 20:19] LABS: D Dimer 232 ng/mL (<230)
--- NOTE | 2020-08-19 20:22 | PC.NURSE ---
the patient had an o2 saturation in the 90s the entire time he was in the ED. The pulse ox on his finger moved around on his finger and he started to lose his o2 saturation of mid 90s. The saturation level dropped down to the mid 70s and that reading was taken by the SUPER[employer] taking care of him and a note was made about this. His pulse ox was traded for a new ear monitor and his cap refill was reassessed. His fingers were blue in color and his cap refill was greater than 2 secs. RN notified MD samano of this finding. Tami assessed the patient. The patient's cap refill came up to 89 with a good 3 star reading, suggesting an accurate reading and the patient was placed on 2 liters nasal cannula.
[2020-08-19 20:26] LABS: Troponin I < 0.012 ng/mL (0.01-0.034)
[2020-08-19 20:29] LABS: CKMB % Relative Index 2.2 % (1.5-5.0); Creatine Kinase MB 3.38 ng/mL (<2.37)
[2020-08-19 20:35] LABS: COVID19 -Nasal RAPID Negative (Negative)
[2020-08-19 21:07] VITALS: BP 158/76; PULSE 77; O2SAT 96
[2020-08-19] MEDS: CYCLOBENZAPRINE 10 MG PREPACK 1 BOTTLE MISC (21:11)
[2020-08-19] MEDS: HYDROCODONE/ACET 5/325 PREPACK 1 BOTTLE MISC (21:11)
[2020-08-19] MEDS: predniSONE 20 MG PREPACK 1 BOTTLE MISC (21:11)
[2020-08-19 21:22] VITALS: BP 158/76; PULSE 79; RESP 16; O2SAT 95
== END 2020-08-19 21:24 | disposition home or self-care (01) ==
PROVIDERS: Emergency Medicine; Emergency Provider Emergency Medicine; PCP Family Medicine
DX: M54.12 Radiculopathy, cervical region (principal); I48.20 Chronic atrial fibrillation, unspecified; Z79.01 Long term (current) use of anticoagulants; I10 Essential (primary) hypertension; E78.5 Hyperlipidemia, unspecified; Z20.828 Contact with and (suspected) exposure to other viral communicable diseases; M48.061 Spinal stenosis, lumbar region without neurogenic claudication; M25.512 Pain in left shoulder
CPT/HCPCS: 36415; 72050; 80048; 82550; 82553; 84484; 85025; 85379; 87635; 93005; 96372; 96374; 96375; 96376; 99284; J1170; J1885; J2930

== ENCOUNTER 2020-08-21 05:32 | Emergency (ER) | payer OTHER, SELFPAY ==
[2020-08-21 05:38] VITALS: BP 206/93; PULSE 80; RESP 18; TEMP 36.6; O2SAT 94; BMI 31.3
[2020-08-21] MEDS: HYDROMORPHONE 1 MG INJ IM (05:48)
--- NOTE | 2020-08-21 06:01 | ED.EXTPRO ---
HPI - Extremity Problem General Chief complaint: Extremity Problem,Nontraumatic Stated complaint: Nerve pain left arm Time Seen by Provider: 08/21/20 05:40 Source: patient Mode of arrival: Ambulatory Limitations: no limitations History of Present Illness HPI Narrative: Patient is a 69-year-old male with known cervical radiculopathy presenting for the 2nd time in 2 days with severe left arm pain. It is sharp and shooting in nature. He previously received dilaudid he also had blood work done a workup on the which was negative. He had x-ray of cervical spine at that time which showed degenerative disease. He says when he left he did have pain relief to he slept pretty good that night. However he woke with severe intense sharp shooting pain as he has previously. He has an appointment with Dr. Barros on August 25 however he does not feel he can wait that long. Requesting for Dilaudid IV. Related Data Home Medications Medication Instructions Recorded Confirmed hydrochlorothiazide 25 mg PO QDAY #0 12/26/10 07/26/18 lisinopril 20 mg PO QDAY #0 12/28/10 07/26/18 pravastatin 20 mg PO HS #0 07/23/17 07/26/18 Previous Rx's Medication Instructions Recorded hydrocodone-acetaminophen 1 tab PO TID #30 tab 06/12/19 venlafaxine 75 mg tablet,extended 75 mg PO QDAY #90 tab 06/12/19 release 24 hr celecoxib 200 mg capsule 200 mg PO DAILY #90 cap 07/09/19 cyclobenzaprine 5 mg PO TID PRN #10 tab 07/25/20 hydrocodone-acetaminophen 1 tab PO Q6H PRN #10 tab 07/25/20 cyclobenzaprine 10 mg PO TID PRN #12 tab 08/19/20 oxycodone 10 mg PO Q6H PRN #20 tab 08/19/20 prednisone 50 mg PO DAILY 5 Days #5 tab 08/19/20 diazepam [Valium] 5 mg PO Q12HR PRN #10 tab 08/21/20 gabapentin 300 mg PO BEDTIME #20 cap 08/21/20 Allergies Allergy/AdvReac Type Severity Reaction Status Date / Time No Known Drug Allergies Allergy Verified 09/08/19 11:11 Review of Systems Review of Systems Narrative: GENERAL: Denies chills, fatigue, malaise, fever, sweats, travel HEENT: Denies sinus pain, ear pain, sore throat, difficulty swallowing, neck pain RESPIRATORY: Denies dyspnea, cough, wheezing, hemoptysis, sputum. CARDIOVASCULAR: Denies chest pain, palpitations, orthopnea, edema GASTROINTESTINAL: Denies nausea, vomiting, abdominal pain, diarrhea, constipation, melena. : Denies dysuria, frequency, incontinence, hematuria, urinary retention, flank pain. MUSCULOSKELETAL: Denies weakness, joint pain, or bony pain SKIN: No rash, no erythema, no pruritus NEUROLOGIC: Sharp shooting pain down left arm see HPI PSYCHIATRIC: No concerning psychosocial issues. 12 point review of systems is negative except for those stated above and HPI Patient History Medical History Chronic a-fib Deviated septum Lumbosacral spondylosis with radiculopathy Right knee DJD Spinal stenosis at L4-L5 level Surgical History H/O hand surgery H/O hernia repair H/O knee surgery History of repair of anterior cruciate ligament of right knee Hx of appendectomy Family History Father Lymphoma Mother No problems noted. Sister Pancreatic cancer Sister COPD (chronic obstructive pulmonary disease) Social History Smoking Status: Never smoker Tobacco: How many years used: 0 quit status: quit date established (Never Started) Smoking Status: Never smoker alcohol intake frequency: 0-2 drinks per day Substance Use Type: does not use Exam Initial Vital Signs Initial Vital Signs: Vital Signs Temperature 98 F 08/21/20 05:38 Pulse Rate 80 08/21/20 05:38 Respiratory Rate 18 08/21/20 05:38 Blood Pressure 206/93 H 08/21/20 05:38 Pulse Oximetry 94 08/21/20 05:38 GENERAL: 69-year-old male extremely uncomfortable holding left arm and in no acute distress. HEENT: Head atraumatic,EOMI, pupils reactive, face symmetric, moist mucous membranes CARDIOVASCULAR: Regular rate and rhythm without murmurs, rubs or gallops. RESPIRATORY: Breath sounds equal bilaterally, no wheezes rales or rhonchi. EXTREMITIES: Normal range of motion, no clubbing or edema. Neurovascularly intact district attorney strength equal bilaterally NEUROLOGICAL: Alert and oriented x4.Normal gait and speech. Cranial nerves II through XII grossly intact. Sensation intact in bilateral upper extremities SKIN: Warm, dry, no laceration, no petechiae, no rashes or lesions. Course Orders Ordered: Discontinued Medications Diazepam (Diazepam 5 Mg Tablet) 10 mg PO NOW ONE Stop: 08/21/20 06:58 Last Admin: 08/21/20 07:02 Dose: 10 mg Documented by: FAIHT Hydromorphone HCl (Hydromorphone 1 Mg Inj) 1 mg IM NOW ONE Stop: 08/21/20 05:45 Last Admin: 08/21/20 05:48 Dose: 1 mg Documented by: FAITH Ketorolac Tromethamine (Ketorolac 60 Mg/2 Ml Vial) 30 mg IM NOW ONE Stop: 08/21/20 06:10 Last Admin: 08/21/20 06:13 Dose: 30 mg Documented by: FAITH Vital Signs Vital signs: Vital Signs - 8 hr 08/21/20 05:38 Temperature 98 F Pulse Rate 80 Respiratory Rate 18 Blood Pressure 206/93 H Pulse Oximetry 94 MDM - Extremity (Nontraumatic) MDM Narrative Medical decision making narrative: The patient's pain is clearly neuropathic. The pain seems to be relatively uncontrolled despite dilaudid and Toradol. He has pain medications Flexeril at home. I have given him a dose of Valium in the ED. Will switch is Flexeril to Valium I will also add gabapentin. He is scheduled to see pain management this week. He likely needs an outpatient MRI. Have discussed all of this with patient and his daughter I discussed all findings with the patient and daughter, Education has been performed regarding treatment plan, diagnosis, warning signs and symptoms and all concerns have been addressed. Verbally agree with and understood all of the above. Discharge Plan Departure Patient Disposition: Home Clinical Impression: Cervical radiculopathy Instructions: DI for Cervical Radiculopathy Activity Restrictions/Additional Instructions: *You have been diagnosed with cervical radiculopathy *What to do: New will likely need to have an MRI of her spine. Please see Dr. feldman as scheduled next week *Continue to take medications as directed Stop taking cyclobenzaprine Valium 5 mg every 12 hours if needed for muscle spasm Gabapentin 300 mg once a day preferably at night before bed. This medication can be titrated up but please do not do so unless you talk with a physician *Follow up with your primary care provider in 2-3 days *Return to ER if you should have weakness, fever or any new, worsening or concerning symptoms CONTROLLED SUBSTANCE DISCHARGE (Narcotoic/benzodiazepine/Flexeril/Phenergan) 1. You have been prescribed narcotic medications, it does have acetaminophen/Tylenol/paracetamol in it so do not take extra Tylenol or Tylenol containing products TRAMADOL DOES NOT CONTAIN TYLENOL 2. Please understand that we cannot provide further refills of narcotics, benzodiazepines or controlled substances through the ED and her pain management will need to be through your provider. 3. While on these medications you cannot drive or operate heavy machinery. 4. You cannot sign legal documents or perform any duties such as this. 5. As long as you're taking opiate pain medications he should also be taking a stool softener such as Colace, Dulcolax, MiraLAX or prune juice, to help avoid constipation. Prescriptions: New gabapentin 300 mg capsule 300 mg PO BEDTIME Qty: 20 RF: 0 diazepam [Valium] 5 mg tablet 5 mg PO Q12HR PRN (Reason: muscle spasm) Qty: 10 RF: 0 No Action hydrochlorothiazide 25 MG tablet 25 mg PO QDAY Qty: 0 RF: 0 lisinopril 40 MG tablet 20 mg PO QDAY Qty: 0 RF: 0 pravastatin 20 MG tablet 20 mg PO HS Qty: 0 RF: 0 venlafaxine 75 mg tablet extended release 24hr 75 mg PO QDAY Qty: 90 RF: 2 hydrocodone-acetaminophen 5-325 mg tablet 1 tab PO TID Qty: 30 RF: 0 hydrocodone-acetaminophen 5-325 mg tablet 1 tab PO Q6H PRN (Reason: pain) Qty: 10 RF: 0 cyclobenzaprine 5 mg tablet 5 mg PO TID PRN (Reason: muscle spasm) Qty: 10 RF: 0 oxycodone 10 mg tablet 10 mg PO Q6H PRN (Reason: pain) Qty: 20 RF: 0 prednisone 50 mg tablet 50 mg PO DAILY 5 Days Qty: 5 RF: 0 cyclobenzaprine 10 mg tablet 10 mg PO TID PRN (Reason: muscle spasm) Qty: 12 RF: 0 celecoxib [Celebrex] 200 mg capsule 200 mg PO DAILY Qty: 90 RF: 2 Referrals: Jaspal Barros DO [Physician] - Ross Ramirez MD [Primary Care Provider] -
[2020-08-21] MEDS: KETOROLAC 60 MG/2 ML VIAL 30 MG IM (06:13)
[2020-08-21] MEDS: diazePAM 5 MG TABLET 10 MG PO (07:02)
[2020-08-21 07:08] VITALS: BP 159/104; PULSE 85; RESP 16; O2SAT 96
== END 2020-08-21 07:27 | disposition home or self-care (01) ==
PROVIDERS: Emergency Provider Emergency Medicine; PCP Family Medicine
DX: M54.12 Radiculopathy, cervical region (principal); I48.20 Chronic atrial fibrillation, unspecified
CPT/HCPCS: 96372; 99281; 99283; J1170; J1885

== ENCOUNTER → 2020-08-25 16:52 | Outpatient (CLI) | payer OTHER, SELFPAY ==
--- NOTE | 2020-08-25 16:53 | DI.MRI.S_ITS ---
PROCEDURE: MR CERVICAL SPINE WO CON INDICATIONS: cervicsal radiculopathy TECHNIQUE: Noncontrast sagittal T1 spin echo and T2 fast spin echo, sagittal STIR, foraminal oblique sagittal T2 fast spin echo, and axial gradient echo or T2 fast spin echo through the cervical spine. COMPARISON: [facility], CR, XR CERVICAL SPINE 4V OR 5V, 08/19/2020, 16:42. FINDINGS: Image quality: Excellent. Alignment and Curvature: There is loss of normal cervical lordosis. There is mild kyphosis at C3-C5. There is mild grade 1 retrolisthesis of C5 on C6 and C6 on C7. Mild grade 1 anterolisthesis C7 on T1. Bone Marrow: Marrow demonstrates normal overall signal. There are hemangiomata at C2 and T1. There is mild reactive signal within the endplates adjacent to the C2-C3, C3-C4, C4-C5, C5-C6, C6-C7, and C7-T1 intervertebral discs. Spinal Cord: Visualized spinal cord has normal size and signal. No cerebellar tonsillar herniation. Paraspinous Soft Tissues: No paravertebral masses. Prevertebral soft tissues are normal in thickness. C2-C3: Moderate disc desiccation. Mild facet and uncovertebral hypertrophy bilaterally. Mild canal stenosis. Moderate right and severe left foraminal stenosis. Left C3 nerve root compression. C3-C4: Moderate disc desiccation. Mild diffuse disc bulge. Moderate facet and uncovertebral hypertrophy. Congenital canal stenosis. Moderate canal stenosis. Moderate right and severe left foraminal stenosis. Left C4 nerve root compression. C4-C5: Moderate disc height loss and desiccation. Mild diffuse disc bulge. Moderate facet and uncovertebral hypertrophy. Congenital canal stenosis. There is moderate canal stenosis. There is severe bilateral foraminal stenosis with bilateral C5 nerve root compression. C5-C6: Moderate disc height loss and desiccation. Mild diffuse disc bulge. Moderate facet and uncovertebral hypertrophy bilaterally. Moderate canal stenosis. Severe bilateral foraminal stenosis with bilateral C6 nerve root compression. C6-C7: Moderate disc desiccation. Mild disc height loss and diffuse disc bulge. Congenital canal stenosis. Moderate facet and uncovertebral hypertrophy bilaterally. Moderate canal stenosis. Severe bilateral foraminal stenosis. Bilateral C7 nerve root compression. C7-T1: Moderate disc height loss and desiccation. Moderate diffuse disc bulge with superimposed left posterolateral and far lateral disc extrusion which extends into the neural foramen. Moderate facet and uncovertebral hypertrophy bilaterally. There is severe canal stenosis. Mild cord flattening. Severe left and moderate right foraminal stenosis. Left C8 nerve root compression. IMPRESSION: 1. Multilevel degenerative disc and facet disease, as well as uncovertebral hypertrophy. Large left posterolateral C7-T1 disc extrusion. 2. Multilevel canal stenosis, worst at C7-T1 where there is mild cord flattening. 3. Multilevel foraminal stenoses, with associated intraforaminal nerve root compression at C2-C3, C3-C4, C4-C5, C5-C6, C6-C7, and C7-T1 where there is associated intraforaminal nerve root compression. Recommend correlation with clinical symptoms to ascertain relevance of these findings. Dictated by: Gilberto Buitrago M.D. on 08/26/2020 at 9:18 Approved by: Gilberto Buitrago M.D. on 08/26/2020 at 9:24
== END ==
PROVIDERS: PCP Family Medicine; Referring Provider Physical Medicine & Rehabilitation; Visit Provider Physical Medicine & Rehabilitation
DX: M54.12 Radiculopathy, cervical region (principal); M48.061 Spinal stenosis, lumbar region without neurogenic claudication; M50.20 Other cervical disc displacement, unspecified cervical region; M50.30 Other cervical disc degeneration, unspecified cervical region; I48.20 Chronic atrial fibrillation, unspecified
CPT/HCPCS: 72141; 99214

== ENCOUNTER → 2020-09-20 15:48 | Outpatient (CLI) | payer OTHER, SELFPAY ==
[2020-09-20 17:01] LABS: COVID19 -Nasal RAPID Negative (Negative)
== END ==
PROVIDERS: PCP Internal Medicine; Visit Provider Physical Medicine & Rehabilitation
DX: Z20.822 Contact with and (suspected) exposure to COVID-19 (principal)
CPT/HCPCS: 87635; C9803

== ENCOUNTER 2020-09-21 07:30 | Outpatient (CLI) | payer OTHER, SELFPAY ==
--- NOTE | 2020-09-21 07:31 | DI.RAD.S_ITS ---
PROCEDURE: PAIN C/T INTERLAMINAR INJECT INDICATIONS: SPINAL STENOSIS COMPARISON: [facility], MR, MR CERVICAL SPINE WO CON, 08/25/2020, 17:09. [facility], CR, XR CERVICAL SPINE 4V OR 5V, 08/19/2020, 16:42. FINDINGS: FINDINGS: Fluoroscopic spot filming was performed to verify placement of a spinal needle at the C7-T1 level, as labeled on the films. Appropriate location of the needle tip was confirmed by injection of iodinated contrast. IMPRESSION: Intraprocedural examination within normal limits. Dictated by: Raimundo Murillo M.D. on 09/21/2020 at 8:18 Approved by: Raimundo Murillo M.D. on 09/21/2020 at 8:20
[2020-09-21 07:44] VITALS: BP 137/69; PULSE 79; RESP 18; TEMP 36.6; O2SAT 96
[2020-09-21 08:30] VITALS: BP 122/65; PULSE 77; RESP 17; O2SAT 94
[2020-09-21] MEDS: fentaNYL 100 MCG/2 ML INJ 50 MCG IV (08:30)
[2020-09-21] MEDS: MIDAZOLAM 5 MG/5 ML VIAL IV (08:33)
[2020-09-21 08:35] VITALS: BP 120/60; PULSE 76; RESP 20; O2SAT 98
[2020-09-21] MEDS: IOPAMIDOL 15 ML VIAL 3 ML INJ (08:35)
[2020-09-21] MEDS: BUPIVACAINE 0.25% (PF) VIAL 2 ML INJ (08:35)
[2020-09-21] MEDS: DEXAMETHASONE 10 MG/ML VIAL 30 MG INJ (08:35)
[2020-09-21 08:40] VITALS: BP 121/65; PULSE 75; RESP 14; O2SAT 96
--- NOTE | 2020-09-21 08:46 | P.PCN_ITS ---
Date/Time/Diagnoses Date of procedure: 09/21/20 Time of procedure: 08:46 Pre-procedure diagnosis: 1. CERVICAL STENOSIS, 2. CERVICAL HNP WITH UPPER EXTREMITY RADICULAR FEATURES Procedure Notes Procedure: FLUORSCOPICALLY GUIDED CONTRAST CONTROLLED INTERLAMINAR EPIDURAL STEROID INJECTION - C7/T1 TL AURE Indications: Korin is referred by Dr. Sher for treatment of Cervical Stenosis. Physician: Jaspal Barros Total Fluoroscopy time (seconds): 24 Total sedation minutes: 13 Complications: none Procedure in detail & Post-procedure care: DESCRIPTION OF PROCEDURE Following review of allergy and review of potential side effects and c omplications, including, but not necessarily limited to, infection, allergic reaction, local tissue breakdown, temporary as well as permanent nerve injury, stroke, paralysis, and possible , the patient indicated that patient understood and agreed to proceed. An informed consent document was signed by the patient, witnessed by a nurse, and placed in the patient's chart. Additionally, other treatment options including modalities, medications, and physical therapy were reviewed with the patient. After review of previous anaesthesic history and IV conscious sedation the patient was deemed safe to proceed with todays procedure with IV conscious sedation as ASA class II designation. Safety time-out was performed to confirm patient ID, procedure to be performed and site of procedure. IV sedation was accomplished with a combination of 2mg of Versed and 50mcg of Fentanyl administered by the RN after DO order, titrated to patient comfort during the course of the procedure while the patient remained responsive to all verbal commands. In the prone position, following sterile prep and drape of the cervical region, the C7/T1 translaminar space was identified fluoroscopically. The skin was anesthetized via a 25-gauge 1.5-inch needle with 1% lidocaine solution. At this point, a 25-gauge, 2.5-inch short bevel spinal needle was atraumatically introduced and advanced under fluoroscopic guidance into epidural space at the C7/T1 translaminar space. Depth was confirmed on lateral view. Radiological data, including multiple fluoroscopic views of the cervical spine, reveal a spinal needle at the C7/T1 translaminar space. Lateral views then show placement of the needle in the epidural space. Subsequent views show contrast material flowing superiorly and inferiorly in the epidural space. DSA fluoroscopy with live contrast injection, once again, confirmed no vascular or intrathecal uptake. At this point, using loss of resistance technique with saline and air, the epidural space was entered. Following negative aspiration, injection of approximately 1.5 cc of Isovue-200 with live fluoroscopy in the AP view confirmed epidural flow in the epidural space without vascular or intrathecal uptake observed. Subsequently, a test dose of 1 cc of 1% lidocaine solution was injected and patient was observed for two minutes without signs or symptoms of complications, including abdominal pain, shortness of breath, bilateral upper or lower extremity weakness, nausea and vomiting, prior to steroid injection. At this point, 3cc or 30mg of dexamethasone was then injected without incident. The patient tolerated the procedure well without signs or symptoms of complications prior to transfer to the recovery area for further monitoring The patient was then transferred to the recovery area where they were observed for an appropriate period of time after the injection. The patient reported a VAS score of 6 prior to the procedure and a post-procedure VAS of 0 POST OP INSTRUCTIONS The patient was provided a Pain Log to continue to record the patient's response to the target-specific procedure prior to the patient's follow-up visit with the referring physician. Additionally, specific post-injection care instructions and a contact number to our office were provided if concerns arise regarding possible complications associated with the procedure are suspected.
[2020-09-21 08:51] VITALS: BP 120/71; PULSE 76; RESP 17; O2SAT 96
[2020-09-21 08:56] VITALS: BP 120/71; PULSE 70; RESP 16; O2SAT 96
== END 2020-09-21 09:15 | disposition home or self-care (01) ==
LOC: RAD 07:30
PROVIDERS: PCP Internal Medicine; Referring Provider Physical Medicine & Rehabilitation; Visit Provider Physical Medicine & Rehabilitation
DX: M48.02 Spinal stenosis, cervical region (principal); M50.13 Cervical disc disorder with radiculopathy, cervicothoracic region
CPT/HCPCS: 62321; 99152; J1100; J2250; J3010

== ENCOUNTER → 2020-10-27 14:01 | Outpatient (CLI) | payer OTHER, SELFPAY ==
--- NOTE | 2020-10-27 14:02 | DI.MRI.S_ITS ---
PROCEDURE: MR SHOULDER LT WO CON INDICATIONS: Pain in left shoulder TECHNIQUE: Noncontrast oblique coronal T2 fast spin echo with fat saturation, oblique sagittal T1 spin echo and T2 fast spin echo with fat saturation, axial T1 spin echo and T2 fast spin echo with fat saturation through the shoulder. COMPARISON: None. FINDINGS: Image quality: Excellent. 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 Teres minor tendinopathy and mild thickening. Full-thickness tear of the subscapularis tendon also seen. Atrophy of the supraspinatus, infraspinatus and subscapularis muscles. Bones and bursae: No bone marrow contusions or fractures. Moderate hypertrophic acromioclavicular joint degeneration. Severe glenohumeral joint degeneration. Small glenohumeral joint effusion. Acromion demonstrates conventional anatomy, without an os acromiale. Capsule and soft tissues: Labrum: Ill-defined circumferential degeneration of the labrum. No definite intrasubstance fluid signal intensity. Long head of the biceps tendon intact. Partial obliteration of the subcoracoid fat. Coracohumeral ligament intact. IMPRESSION: Massive full-thickness tear of the subscapularis, supraspinatus and infraspinatus tendons, chronic age. Teres minor tendinopathy and mild thickening Diffuse atrophy of the supraspinatus, infraspinatus and subscapularis muscles Severe degenerative joint disease. Ill-defined circumferential degenerative tear/fraying of the labrum. Dictated by: Henrique Bragg M.D. on 10/27/2020 at 15:49 Approved by: Henrique Bragg M.D. on 10/27/2020 at 15:56
== END ==
PROVIDERS: PCP Internal Medicine; Referring Provider Orthopaedic Surgery; Visit Provider Orthopaedic Surgery
DX: M50.20 Other cervical disc displacement, unspecified cervical region (principal); M48.061 Spinal stenosis, lumbar region without neurogenic claudication; I48.20 Chronic atrial fibrillation, unspecified; M47.27 Other spondylosis with radiculopathy, lumbosacral region; M17.11 Unilateral primary osteoarthritis, right knee; M75.42 Impingement syndrome of left shoulder
CPT/HCPCS: 73221; 99214

== ENCOUNTER → 2021-01-17 08:14 | Outpatient (CLI) | payer OTHER, SELFPAY ==
[2021-01-17 15:12] LABS: COVID19 -Nasal RAPID Negative (Negative)
== END ==
PROVIDERS: PCP Internal Medicine; Visit Provider Physical Medicine & Rehabilitation
DX: Z20.822 Contact with and (suspected) exposure to COVID-19 (principal)
CPT/HCPCS: 87635; C9803

== ENCOUNTER 2021-01-18 09:02 | Outpatient (CLI) | payer OTHER, SELFPAY ==
[2021-01-18] VITALS (11 sets, daily range): BP systolic 102–137; BP diastolic 55–77; PULSE 67–74; RESP 12–19; TEMP 36.5; O2SAT 94–99
--- NOTE | 2021-01-18 09:03 | DI.RAD.S_ITS ---
PROCEDURE: PAIN C/T INTERLAMINAR INJECT INDICATIONS: SPINAL STENOSIS COMPARISON: [facility], , PAIN C/T INTERLAMINAR INJECT, 09/21/2020, 8:33. FINDINGS: Fluoroscopic spot filming was performed to verify placement of spinal needles at the C7-T1 interlaminar space level(s), as labeled on the films. Appropriate location(s) of the needle tip(s) was confirmed by injection of iodinated contrast. IMPRESSION: Access needle at the C7-T1 level for translaminar injection. Dictated by: Bharati Sands MD, PhD on 01/18/2021 at 10:12 Approved by: Bharati Sands MD, PhD on 01/18/2021 at 10:13
[2021-01-18] MEDS: BUPIVACAINE 0.25% (PF) VIAL 2 ML INJ (09:44)
[2021-01-18] MEDS: IOPAMIDOL 15 ML VIAL 3 ML INJ (09:44)
[2021-01-18] MEDS: fentaNYL 100 MCG/2 ML INJ 50 MCG IV (09:44)
[2021-01-18] MEDS: DEXAMETHASONE 10 MG/ML VIAL 30 MG INJ (09:52)
[2021-01-18] MEDS: MIDAZOLAM 5 MG/5 ML VIAL IV (09:55)
--- NOTE | 2021-01-18 10:04 | P.PCN_ITS ---
Date/Time/Diagnoses Date of procedure: 01/18/21 Time of procedure: 10:04 Pre-procedure diagnosis: 1. CERVICAL STENOSIS, 2. CERVICAL HNP WITH UPPER EXTREMITY RADICULAR FEATURES Procedure Notes Procedure: FLUORSCOPICALLY GUIDED CONTRAST CONTROLLED INTERLAMINAR EPIDURAL STEROID INJECTION - C7/T1 TL AURE Indications: Korin is referred by Dr. Sher for treatment of Cervical Stenosis. Physician: Jaspal Barros Total Fluoroscopy time (seconds): 34 Total sedation minutes: 15 Complications: none Procedure in detail & Post-procedure care: DESCRIPTION OF PROCEDURE Following review of allergy and review of potential side effects and c omplications, including, but not necessarily limited to, infection, allergic reaction, local tissue breakdown, temporary as well as permanent nerve injury, stroke, paralysis, and possible , the patient indicated that patient understood and agreed to proceed. An informed consent document was signed by the patient, witnessed by a nurse, and placed in the patient's chart. Additionally, other treatment options including modalities, medications, and physical therapy were reviewed with the patient. After review of previous anaesthesic history and IV conscious sedation the patient was deemed safe to proceed with todays procedure with IV conscious sedation as ASA class II designation. Safety time-out was performed to confirm patient ID, procedure to be performed and site of procedure. IV sedation was accomplished with a combination of 3mg of Versed and 50mcg of Fentanyl administered by the RN after DO order, titrated to patient comfort during the course of the procedure while the patient remained responsive to all verbal commands. In the prone position, following sterile prep and drape of the cervical region, the C7/T1 translaminar space was identified fluoroscopically. The skin was anesthetized via a 25-gauge 1.5-inch needle with 1% lidocaine solution. At this point, a 25-gauge, 2.5-inch short bevel spinal needle was atraumatically introduced and advanced under fluoroscopic guidance into epidural space at the C7/T1 translaminar space. Depth was confirmed on lateral view. Radiological data, including multiple fluoroscopic views of the cervical spine, reveal a spinal needle at the C7/T1 translaminar space. Lateral views then show placement of the needle in the epidural space. Subsequent views show contrast material flowing superiorly and inferiorly in the epidural space. DSA fluoroscopy with live contrast injection, once again, confirmed no vascular or intrathecal uptake. At this point, using loss of resistance technique with saline and air, the epidural space was entered. Following negative aspiration, injection of approximately 1.5 cc of Isovue-200 with live fluoroscopy in the AP view confirmed epidural flow in the epidural space without vascular or intrathecal uptake observed. Subsequently, a test dose of 1 cc of 1% lidocaine solution was injected and patient was observed for two minutes without signs or symptoms of complications, including abdominal pain, shortness of breath, bilateral upper or lower extremity weakness, nausea and vomiting, prior to steroid injection. At this point, 3cc or 30mg of dexamethasone was then injected without incident. The patient tolerated the procedure well without signs or symptoms of complications prior to transfer to the recovery area for further monitoring The patient was then transferred to the recovery area where they were observed for an appropriate period of time after the injection. The patient reported a VAS score of 7 prior to the procedure and a post-procedure VAS of 0 POST OP INSTRUCTIONS The patient was provided a Pain Log to continue to record the patient's response to the target-specific procedure prior to the patient's follow-up visit with the referring physician. Additionally, specific post-injection care instructions and a contact number to our office were provided if concerns arise regarding possible complications associated with the procedure are suspected.
== END 2021-01-18 10:37 | disposition home or self-care (01) ==
LOC: RAD 09:02
PROVIDERS: PCP Internal Medicine; Referring Provider Physical Medicine & Rehabilitation; Visit Provider Physical Medicine & Rehabilitation
DX: M48.02 Spinal stenosis, cervical region (principal); M50.13 Cervical disc disorder with radiculopathy, cervicothoracic region
CPT/HCPCS: 62321; 99152; J1100; J2250; J3010

== ENCOUNTER → 2021-03-23 14:12 | Outpatient (CLI) | payer OTHER, SELFPAY ==
--- NOTE | 2021-03-23 14:13 | DI.RAD.S_ITS ---
PROCEDURE: XR LUMBAR SPINE MIN 4V INDICATIONS: L4-5 spondylolisthesis with lower extremity symptoms TECHNIQUE: 5 views of the lumbar spine were acquired, including bilateral oblique views. COMPARISON: None. FINDINGS: Bones: 5 nonrib-bearing vertebrae are present. Minimal scoliosis. Anterolisthesis of L5 on S1 measuring approximately 0.6 cm. Anterolisthesis of L4 on L5 measuring approximately 0.5 cm. There is extensive facet joint hypertrophy. Multilevel loss of intervertebral disc space height consistent with DDD. No vertebral body compression fractures. No suspicious bony lesions. Soft tissues: Overlying bowel gas pattern is normal. No suspicious soft tissue calcifications. Vascular calcifications. Oblique images: No pars defects identified. IMPRESSION: Mild L4-L5 and L5-S1 anterolisthesis. Facet joint hypertrophy and extensive posterior degenerative change. Dictated by: Lonny James M.D. on 03/23/2021 at 14:48 Approved by: Lonny James M.D. on 03/23/2021 at 14:52
== END ==
PROVIDERS: PCP Internal Medicine; Referring Provider Physical Medicine & Rehabilitation; Visit Provider Physical Medicine & Rehabilitation
DX: M48.061 Spinal stenosis, lumbar region without neurogenic claudication (principal); M43.17 Spondylolisthesis, lumbosacral region; M47.27 Other spondylosis with radiculopathy, lumbosacral region; M50.223 Other cervical disc displacement at C6-C7 level; M48.02 Spinal stenosis, cervical region; G99.2 Myelopathy in diseases classified elsewhere; M75.42 Impingement syndrome of left shoulder
CPT/HCPCS: 72110; 99214

== ENCOUNTER → 2021-04-11 07:45 | Outpatient (CLI) | payer OTHER, SELFPAY ==
[2021-04-11 12:07] LABS: COVID19 -Nasal RAPID Negative (Negative)
== END ==
PROVIDERS: PCP Internal Medicine; Visit Provider Physical Medicine & Rehabilitation
DX: Z20.822 Contact with and (suspected) exposure to COVID-19 (principal)
CPT/HCPCS: 87635; C9803

== ENCOUNTER 2021-04-12 10:54 | Outpatient (CLI) | payer OTHER, SELFPAY ==
[2021-04-12] VITALS (9 sets, daily range): BP systolic 116–143; BP diastolic 56–73; PULSE 76–86; RESP 14–21; TEMP 36.7; O2SAT 95–98
--- NOTE | 2021-04-12 10:55 | DI.RAD.S_ITS ---
PROCEDURE: PAIN L INTERLAMINAR/CAUDAL INJ INDICATIONS: SPONDYLOSIS COMPARISON: [facility], XA, PAIN L INTERLAMINAR/CAUDAL INJ, 06/18/2018, 14:03. FINDINGS: Fluoroscopic spot filming was performed to verify placement of a spinal needle at the L4-L5 level, as labeled on the films. Appropriate location of the needle tip was confirmed by injection of iodinated contrast. IMPRESSION: Intraprocedural examination within normal limits. Dictated by: Raimundo Murillo M.D. on 04/12/2021 at 12:10 Approved by: Raimundo Murillo M.D. on 04/12/2021 at 12:10
[2021-04-12] MEDS: fentaNYL 100 MCG/2 ML INJ 50 MCG IV (11:38)
[2021-04-12] MEDS: MIDAZOLAM 5 MG/5 ML VIAL IV (11:38)
[2021-04-12] MEDS: IOPAMIDOL 15 ML VIAL 3 ML INJ (11:42)
[2021-04-12] MEDS: BUPIVACAINE 0.25% (PF) VIAL 2 ML INJ (11:43)
[2021-04-12] MEDS: DEXAMETHASONE 10 MG/ML VIAL 20 MG INJ (11:43)
[2021-04-12] MEDS: methylPREDNISolone acetate 80 MG/ML VIAL INJ (11:49)
--- NOTE | 2021-04-12 11:54 | P.PCN_ITS ---
Date/Time/Diagnoses Date of procedure: 04/12/21 Time of procedure: 11:54 Pre-procedure diagnosis: 1. HNP WITH RADICULAR FEATURES, 2. MULTILEVEL CENTRAL STENOSIS, Post-procedure diagnosis: same Procedure Notes Procedure: 1. FLUOROSCOPICALLY GUIDED CONTRAST CONTROLLED INTERLAMINAR EPIDURAL STEROID INJECTION -L4/5 Indications: Korin is referred by Dr. Sher for treatment of Bilateral Foraminal Stenosis R>L LE symptoms. Physician: Jaspal Barros Total Fluoroscopy time (seconds): 9 Total sedation minutes: 11 Complications: none Procedure in detail & Post-procedure care: FINDINGS Multilevel Central Spinal Stenosis with Nerve Root Compression DESCRIPTION OF PROCEDURE Fluoroscopically guided, contrast-controlled L4/5 translaminar epidural steroid injection. Following review of allergy and review of potential side effects and complications, including, but not necessarily limited to, infection, allergic reaction, local tissue breakdown, temporary as well as permanent nerve injury, paralysis, stroke and possible , the patient indicated that the patient understood and agreed to proceed. An informed consent document was signed by the patient, witnessed by a nurse, and placed in the patient's chart. Additionally, other treatment options including modalities, medications, and physical therapy were reviewed with the patient. After review of previous anaesthesic history and IV conscious sedation the patient was deemed safe to proceed with today?s procedure with IV conscious sedation as ASA class II designation. Safety time-out was performed to confirm patient ID, procedure to be performed and site of procedure. IV sedation was accomplished with a combination of 2mg of Versed and 50mcg of Fentanyl was administered by the RN after DO order, titrated to patient comfort during the course of the procedure while the patient remained responsive to all verbal commands In the prone position, following sterile prep and drape of the lumbar region, the L4/5 translaminar space was identified fluoroscopically. The skin was anesthetized via a 25-gauge, 1.5inch needle with 1% lidocaine solution. At this point, a 22-gauge short bevel spinal needle was atraumatically introduced and advanced under fluoroscopic guidance into the region of the L4/5 translaminar space. Depth was confirmed on lateral view. Radiological data, including multiple fluoroscopic views of the lumbar spine, reveal a spinal needle at the L4/5 translaminar space. Lateral views then show placement of the needle in the epidural space. Subsequent views show contrast material flowing superiorly and inferiorly in the epidural space. No vascular or intrathecal uptake is observed. At this point, using loss of resistance technique with saline and air, the epidural space was entered. This was confirmed following negative aspiration with injection of approximately 1.5cc of Isovue 200, showing excellent epidural flow without vascular or intrathecal uptake. At this point, 1cc of 1% lidocaine solution combined with 3cc or 20mg of dexamethasone and 80 Depo medrol was injected without incident. The patient tolerated the procedure well without signs or symptoms of complications prior to transfer to the recovery area continued monitoring without incident. The patient was then transferred to the recovery area where they were observed for an appropriate period of time after the injection. The patient reported a VAS score of 6 prior to the procedure and a post- procedure VAS of 0. POST OP INSTRUCTIONS The patient was provided a Pain Log to continue to record their response to the target-specific procedure prior to follow-up visit with their referring physician. Additionally, specific post-injection care instructions and a contact number to our office were provided if concerns arise regarding possible complications associated with the procedure are suspected.
== END 2021-04-12 12:10 | disposition home or self-care (01) ==
LOC: RAD 10:54
PROVIDERS: PCP Internal Medicine; Referring Provider Physical Medicine & Rehabilitation; Visit Provider Physical Medicine & Rehabilitation
DX: M51.16 Intervertebral disc disorders with radiculopathy, lumbar region (principal); M48.061 Spinal stenosis, lumbar region without neurogenic claudication
CPT/HCPCS: 62323; 99152; J0702; J1040; J1100; J2250; J3010

== ENCOUNTER → 2021-04-18 17:10 | Outpatient (CLI) | payer OTHER, SELFPAY ==
--- NOTE | 2021-04-18 17:13 | DI.MRI.S_ITS ---
PROCEDURE: MR LUMBAR SPINE WO CON INDICATIONS: SPINAL STENOSIS TECHNIQUE: Noncontrast sagittal T1 spin echo and T2 fast echo, sagittal STIR, axial T1 and T2 fast spin echo through the lumbar spine. In cases with scoliosis, additional coronal T2 fast spin echo may be performed. COMPARISON: None. FINDINGS: Image quality: Excellent. Alignment and Curvature: There is normal bony alignment. Bone Marrow: Marrow is of normal overall signal. No acute vertebral body compression fractures. Spinal Cord: Normal position and appearance of the conus. Regional Soft Tissues: Prevertebral and paraspinous soft tissues are normal. T12-L1: No spinal canal or neural foraminal stenosis. L1-L2: Congenitally shortened pedicles. Diffuse disc bulge flattens the ventral thecal sac. No displacement of the descending L2 nerve roots. Foraminal components of the disc bulge and facet hypertrophy combine to produce severe bilateral neural foraminal stenosis. L2-L3: Congenitally shortened pedicles. Severe spinal canal stenosis due to a combination of diffuse disc bulge, superimposed broad-based posterior disc protrusion, buckling of the ligamentum flavum, and facet hypertrophy. Foraminal components of the disc bulge and facet hypertrophy combine to produce severe bilateral neural foraminal stenosis. L3-L4: Congenitally shortened pedicles. Severe spinal canal stenosis due to a combination of diffuse disc bulge, superimposed broad-based posterior disc protrusion, buckling of the ligamentum flavum, and facet hypertrophy. Foraminal components of the disc bulge and facet hypertrophy combine to produce severe right and moderate left neural foraminal stenosis. L4-L5: Congenitally shortened pedicles. Severe spinal canal stenosis due to a combination of diffuse disc bulge, superimposed broad-based posterior disc protrusion, buckling of the ligamentum flavum, asymmetrically more prominent on the right), and facet hypertrophy. These factors combine to produce severe bilateral neural foraminal stenosis. L5-S1: Normal appearance. IMPRESSION: Congenitally shortened pedicles at every level in the lumbar spine, which produces a baseline narrowing of the spinal canal and neural foramina in the AP dimension, exacerbating the mass effect due to superimposed degenerative changes. Overall severe multilevel multifactorial degenerative changes. Severe spinal canal stenosis at L2-L3, L3-L4, and L4-L5. Very degrees of neural foraminal stenosis, severe bilaterally at L1-L2, L2-L3, and L4-L5, as well as on the right at L3-L4. Dictated by: Fabio Hendrix M.D. on 04/19/2021 at 8:50 Approved by: Fabio Hendrix M.D. on 04/19/2021 at 9:29
--- NOTE | 2021-04-18 17:13 | DI.MRI.S_ITS ---
PROCEDURE: MR CERVICAL SPINE WO CON INDICATIONS: SPINAL STENOSIS TECHNIQUE: Noncontrast sagittal T1 spin echo and T2 fast spin echo, sagittal STIR, foraminal oblique sagittal T2 fast spin echo, and axial gradient echo or T2 fast spin echo through the cervical spine. COMPARISON: [facility], MR, MR CERVICAL SPINE WO CON, 08/25/2020, 17:09. FINDINGS: Image quality: Excellent. Alignment and Curvature: There is loss of normal cervical lordosis. Mild kyphosis at C3-C5. Mild grade 1 retrolisthesis of C5 on C6. Mild grade 1 anterolisthesis of C7 on T1. Bone Marrow: Marrow demonstrates normal overall signal. There is mild reactive signal within the endplates adjacent to the C2-C3, C3-C4, C4-C5, C5-C6, C6-C7, and C7-T1 intervertebral discs. Spinal Cord: Visualized spinal cord has normal size and signal. No cerebellar tonsillar herniation. Paraspinous Soft Tissues: No paravertebral masses. Prevertebral soft tissues are normal in thickness. C2-C3: Mild disc desiccation. Mild facet and uncovertebral hypertrophy bilaterally. Mild canal stenosis. Moderate right and moderate to severe left foraminal stenosis. Left C3 nerve root compression. No significant change. C3-C4: Moderate disc height loss and desiccation. Mild diffuse disc bulge. Moderate facet and uncovertebral hypertrophy. Congenital canal stenosis. Moderate canal stenosis. Moderate right and severe left foraminal stenosis. Left C4 nerve root compression. No significant change. C4-C5: Congenital canal stenosis. Moderate disc height loss and desiccation. Mild diffuse disc bulge/osteophyte. Moderate facet and uncovertebral hypertrophy bilaterally. Moderate canal stenosis. Severe bilateral foraminal stenosis. Bilateral C5 nerve root compression. No significant change. C5-C6: Congenital canal stenosis. Moderate disc height loss and desiccation. Mild diffuse disc bulge. Moderate facet and uncovertebral hypertrophy bilaterally. Moderate canal stenosis. Severe bilateral foraminal stenosis. Bilateral C6 nerve root compression. No significant change. C6-C7: Congenital canal stenosis. Moderate disc desiccation. Mild disc height loss. Mild diffuse disc bulge. Moderate facet and uncovertebral hypertrophy. Moderate canal stenosis. Severe bilateral foraminal stenosis. Bilateral C7 nerve root compression. C7-T1: Moderate disc height loss and desiccation. Moderate diffuse disc bulge with superimposed left posterolateral and far lateral disc extrusion, extending into the left-sided neural foramen. Moderate facet and uncovertebral hypertrophy. Severe canal stenosis with increased, moderate cord flattening. Severe left foraminal stenosis. Increased, severe right foraminal stenosis. Left greater than right C8 nerve root compression. IMPRESSION: 1. Diffuse congenital canal stenosis with superimposed disc and facet disease, as well as uncovertebral hypertrophy. 2. Multilevel canal stenoses, worst at C7-T1, where there is increased, moderate cord flattening. 3. Multilevel foraminal stenoses, with associated intraforaminal nerve root compression at C2-C3, C3-C4, C4-C5, C5-C6, C6-C7, and C7-T1 as described above. Recommend correlation with clinical symptoms to ascertain relevance of these findings. Dictated by: Gilberto Buitrago M.D. on 04/19/2021 at 8:38 Approved by: Gilberto Buitrago M.D. on 04/19/2021 at 8:50
== END ==
PROVIDERS: PCP Internal Medicine; Referring Provider Neurological Surgery; Visit Provider Neurological Surgery
DX: M48.02 Spinal stenosis, cervical region (principal); M48.01 Spinal stenosis, occipito-atlanto-axial region; M50.21 Other cervical disc displacement, high cervical region; M47.816 Spondylosis without myelopathy or radiculopathy, lumbar region; M48.061 Spinal stenosis, lumbar region without neurogenic claudication
CPT/HCPCS: 72141; 72148

== ENCOUNTER → 2021-06-13 14:17 | Outpatient (CLI) | payer OTHER, SELFPAY ==
--- NOTE | 2021-06-13 | DI.MRI.S_ITS ---
PROCEDURE: MR THORACIC SPINE WO CON INDICATIONS: Intervertebral disc disorders with myelopathy TECHNIQUE: Noncontrast sagittal T1 spine echo and T2 fast spin echo, sagittal STIR, axial T1 and T2 fast spin echo through the thoracic spine. COMPARISON: [facility], MR, MR LUMBAR SPINE WO CON, 04/18/2021, 18:16. [facility], MR, MR CERVICAL SPINE WO CON, 04/18/2021, 17:49. FINDINGS: Image quality: Diagnostic, with note made of motion artifact. Alignment and Curvature: Mild levoconvex scoliotic curvature is noted. No focal AP alignment abnormality is seen. Bone Marrow: Marrow is of normal overall signal. Scattered foci are seen, which are hyperintense on T1-weighted and T2-weighted imaging, which are most consistent with benign vertebral body hemangiomas. No acute vertebral body compression fractures. Spinal Cord: Visualized spinal cord is normal in size and signal. Paraspinous Soft Tissues: No paravertebral masses. Miscellaneous: At the C7-T1 level, there is a prominent left-sided disc extrusion, with moderate to severe central canal narrowing, as on series 6, image 9 and on series 7, images 3 and 4. This disc extrusion appears similar to the prior MRI. At the T6-T7 level, there is a mild central/right disc osteophyte protrusion, with minimal central canal narrowing and mild mass effect upon the ventral spinal cord, as on series 7, image 24. No neural foraminal narrowing can be seen. At T7-T8, there is a mild central/right disc osteophyte protrusion, as on series 7, image 28. Moderate loss of disc height is seen. Minimal central canal narrowing is seen, with mild mass effect upon the ventral spinal cord. No neural foraminal narrowing can be seen. At the T8-T9 level, there is a central disc osteophyte protrusion seen, as on series 7, image 31 and on series 4 image 9. There is mild central canal narrowing, with moderate mass effect upon the ventral spinal cord. No neural foraminal narrowing can be seen. At the T10-T11 level, there is mild generalized disc bulge, with minimal central canal narrowing, without significant mass effect upon the ventral spinal cord. Mild central canal narrowing is seen, which is largely caused by epidural lipomatosis. Moderate neural foraminal narrowing can be seen. At the T11-T12 level, there is generalized disc bulge seen, with hypertrophy of the posterior elements. Mild to moderate central canal narrowing is seen. Moderate bilateral neural foraminal narrowing can be seen. IMPRESSION: Multiple levels of thoracic spine degenerative change are seen, which are overall worst at the T8-T9 level. On the left at the C7-T1 level, there is a prominent disc extrusion again seen. Dictated by: Raimundo Murillo M.D. on 06/13/2021 at 13:56 Approved by: Raimundo Murillo M.D. on 06/13/2021 at 14:02
== END ==
PROVIDERS: PCP Internal Medicine; Referring Provider Dentist Orthodontics and Dentofacial Orthopedics; Visit Provider Dentist Orthodontics and Dentofacial Orthopedics
DX: M51.04 Intervertebral disc disorders with myelopathy, thoracic region (principal); M47.14 Other spondylosis with myelopathy, thoracic region; M50.03 Cervical disc disorder with myelopathy, cervicothoracic region
CPT/HCPCS: 72146

== ENCOUNTER → 2021-11-07 11:12 | Outpatient (CLI) | payer OTHER, SELFPAY ==
[2021-11-07 13:23] LABS: COVID19 -Nasal RAPID Negative (Negative)
== END ==
PROVIDERS: PCP Internal Medicine; Visit Provider Physical Medicine & Rehabilitation
DX: Z20.822 Contact with and (suspected) exposure to COVID-19 (principal)
CPT/HCPCS: 87635; C9803

== ENCOUNTER 2021-11-08 15:26 | Outpatient (CLI) | payer OTHER, SELFPAY ==
[2021-11-08] VITALS (8 sets, daily range): BP systolic 108–142; BP diastolic 59–96; PULSE 83–92; RESP 15–20; TEMP 36.7; O2SAT 93–100
--- NOTE | 2021-11-08 15:27 | DI.RAD.S_ITS ---
PROCEDURE: PAIN L INTERLAMINAR/CAUDAL INJ INDICATIONS: Spondylosis COMPARISON: [facility], XA, PAIN L INTERLAMINAR/CAUDAL INJ, 04/12/2021, 11:43. [facility], XA, PAIN L INTERLAMINAR/CAUDAL INJ, 06/18/2018, 14:03. FINDINGS: Fluoroscopic spot filming was performed to verify placement of spinal needles at the L3-4 level(s), as labeled on the films. Appropriate location(s) of the needle tip(s) was confirmed by injection of iodinated contrast. IMPRESSION: L3-4 facet injection. Dictated by: Maggie Flaherty M.D. on 11/08/2021 at 17:10 Approved by: Maggie Flaherty M.D. on 11/08/2021 at 17:10
[2021-11-08] MEDS: MIDAZOLAM 2 MG/2 ML VIAL IV (15:56)
[2021-11-08] MEDS: fentaNYL 250 MCG/5 ML INJ 50 MCG IV (15:56)
[2021-11-08] MEDS: BUPIVACAINE 0.25% (PF) VIAL 2 ML INJ (15:58)
[2021-11-08] MEDS: IOPAMIDOL 15 ML VIAL 3 ML INJ (15:58)
[2021-11-08] MEDS: BETAMETHASONE 30 MG/5 ML MDV 6 MG INJ (15:58)
[2021-11-08] MEDS: DEXAMETHASONE 10 MG/ML VIAL 20 MG INJ (15:59)
--- NOTE | 2021-11-08 16:12 | P.PCN_ITS ---
Date/Time/Diagnoses Date of procedure: 11/08/21 Time of procedure: 16:13 Pre-procedure diagnosis: 1. HNP WITH RADICULAR FEATURES, 2. MULTILEVEL CENTRAL STENOSIS, Post-procedure diagnosis: same Procedure Notes Procedure: 1. FLUOROSCOPICALLY GUIDED CONTRAST CONTROLLED INTERLAMINAR EPIDURAL STEROID INJECTION - L3/4 Indications: Korin Harris is referred by Dr. Sher for treatment of Bilateral Foraminal Stenosis L>R LE symptoms. Physician: Jaspal Barros Total Fluoroscopy time (seconds): 12 Total sedation minutes: 12 Complications: none Procedure in detail & Post-procedure care: FINDINGS Multilevel Central Spinal Stenosis with Nerve Root Compression DESCRIPTION OF PROCEDURE Fluoroscopically guided, contrast-controlled L3/4 translaminar epidural steroid injection. Following review of allergy and review of potential side effects and complications, including, but not necessarily limited to, infection, allergic reaction, local tissue breakdown, temporary as well as permanent nerve injury, paralysis, stroke and possible , the patient indicated that the patient understood and agreed to proceed. An informed consent document was signed by the patient, witnessed by a nurse, and placed in the patient's chart. Additionally, other treatment options including modalities, medications, and physical therapy were reviewed with the patient. After review of previous anaesthesic history and IV conscious sedation the patient was deemed safe to proceed with today?s procedure with IV conscious sedation as ASA class II designation. Safety time-out was performed to confirm patient ID, procedure to be performed and site of procedure. IV sedation was accomplished with a combination of 2mg of Versed and 50mcg of Fentanyl was administered by the RN after DO order, titrated to patient comfort during the course of the procedure while the patient remained responsive to all verbal commands. In the prone position, following sterile prep and drape of the lumbar region, the L3/4 translaminar space was identified fluoroscopically. The skin was anesthetized via a 25-gauge, 1.5-inch needle with 1% lidocaine solution. At this point, a 22-gauge short bevel spinal needle was atraumatically introduced and advanced under fluoroscopic guidance into the region of the L3/4 translaminar space. Depth was confirmed on lateral view. Radiological data, including multiple fluoroscopic views of the lumbar spine, reveal a spinal needle at the L3/4 translaminar space. Lateral views then show placement of the needle in the epidural space. Subsequent views show contrast m aterial flowing superiorly and inferiorly in the epidural space. No vascular or intrathecal uptake is observed. At this point, using loss of resistance technique with saline and air, the epidural space was entered. This was confirmed following negative aspiration with injection of approximately 1.5 cc of Isovue 200, showing excellent epidural flow without vascular or intrathecal uptake. At this point, 1cc of 1% lidocaine solution combined with 3cc or 20mg of dexamethasone and 6mg of betamethasone was injected without incident. The patient tolerated the procedure well without signs or symptoms of complications prior to transfer to the recovery area continued monitoring without incident. The patient was then transferred to the recovery area where they were observed for an appropriate period of time after the injection. The patient reported a VAS score of 6 prior to the procedure and a post- procedure VAS of 0. POST OP INSTRUCTIONS The patient was provided a Pain Log to continue to record their response to the target-specific procedure prior to follow-up visit with their referring physician. Additionally, specific post-injection care instructions and a contact number to our office were provided if concerns arise regarding possible complications associated with the procedure are suspected.
== END 2021-11-08 16:28 | disposition home or self-care (01) ==
PROVIDERS: PCP Internal Medicine; Referring Provider Physical Medicine & Rehabilitation; Visit Provider Physical Medicine & Rehabilitation
DX: M48.061 Spinal stenosis, lumbar region without neurogenic claudication (principal); M51.16 Intervertebral disc disorders with radiculopathy, lumbar region
CPT/HCPCS: 62323; 99152; J0702; J1100; J2250; J3010

== ENCOUNTER → 2021-11-09 12:36 | Outpatient (CLI) | payer OTHER, SELFPAY ==
--- NOTE | 2021-11-09 | DI.RAD.S_ITS ---
PROCEDURE: FL WRIST INJECTION MR/CT RT INDICATIONS: RIGHT WRIST PAIN COMPARISON: None. TECHNIQUE: After informed consent had been obtained, the wrist was examined fluoroscopically, and a site chosen for injection of the radiocarpal compartment from a dorsal approach. Skin was prepped and draped in a sterile fashion and 1% lidocaine infiltrated from the skin down to the articular surface. A hypodermic needle was then introduced into the articular space and a modest amount of contrast medium was instilled confirming intra-articular needle tip placement. This was followed by approximately 4 mL of a dilute gadolinium solution. Needle was removed and dressing was applied. The patient experienced no complications throughout the procedure and left the fluoroscopic suite in no apparent distress. FINDINGS: A single fluoroscopic spot image demonstrates intra-articular location to injected iodinated contrast. IMPRESSION: Successful fluoroscopic-guided administration of dilute Gadolinium solution for wrist MR arthrogram. Dictated by: Jv Hernandes M.D. on 11/09/2021 at 15:15 Approved by: Jv Hernandes M.D. on 11/09/2021 at 15:16
--- NOTE | 2021-11-09 | DI.MRI.S_ITS ---
PROCEDURE: MR WRIST RT W CON INDICATIONS: RIGHT WRIST PAIN TECHNIQUE: After the administration of 3-4 mL of dilute intra-articular Gadolinium contrast into the radiocarpal compartment, coronal T1 spin echo with fat saturation and T2 fast spin echo with fat saturation, axial T1 spin echo and T2 fast spin echo with fat saturation, sagittal T1 spin echo with and without fat saturation through the wrist. COMPARISON: [facility], RG, XR WRIST 4V RIGHT, 10/24/2021, 12:59. FINDINGS: Image quality: Excellent. Bones and cartilage: The carpal bones are normally aligned. Prominent foci of T2 hyperintense/T1 hypointense signal is seen in the distal radius, distal ulna, lunate, triquetrum, trapezium, and base of the 1st metacarpal. Patchy T2 hyperintense signal within the capitate, which may reflect reactive edema. Signal heterogeneity and thinning of the cartilage surfaces. Carpal ligaments: Alignment maintained; however, gadolinium extravasation into the mid-carpal row. Triangular fibrocartilage complex: Deficiency of the TFCC, which may reflect prior surgery and or chronic tear. The extensor carpi ulnaris tendon is normal in location. Fluid signal surrounds the tendon, compatible with tenosynovitis. Tendons and soft tissues: The carpal tunnel structures appear normal, including the median nerve. The ulnar nerve appears normal within Guyon's canal. Thickening with fluid surrounding the extensor pollicis longus, compatible with tenosynovitis. Fluid is also seen surrounding the extensor carpi radialis tendons, compatible with tenosynovitis. Evidence of synovitis is seen along the radiocarpal articulation. No soft tissue ganglion cysts. Dorsal reticulated T2 hyperintense signal, compatible with edema. IMPRESSION: 1. Deficiency of the TFCC, compatible with remote tear. 2. Fibrocystic versus erosive changes of the carpus. 3. Tenosynovitis of the extensor carpi ulnaris. 4. Thickening of the extensor pollicis longus with tenosynovitis. 5. Tenosynovitis of the extensor carpi radialis tendons. 6. Synovitis of the radiocarpal articulation. 7. Gadolinium instrumentation into the midcarpal row, compatible with ligamentous injury. Dictated by: Matheus Frankel M.D. on 11/09/2021 at 14:29 Approved by: Matheus Frankel M.D. on 11/09/2021 at 14:49
== END ==
PROVIDERS: PCP Internal Medicine; Referring Provider Orthopaedic Surgery; Visit Provider Orthopaedic Surgery
DX: M19.031 Primary osteoarthritis, right wrist (principal); M65.88 Other synovitis and tenosynovitis, other site
CPT/HCPCS: 20605; 73222; 77002

== ENCOUNTER → 2021-12-27 10:41 | Outpatient (CLI) | payer OTHER, SELFPAY ==
[2021-12-27 12:55] LABS: COVID19 -Nasal RAPID Negative (Negative)
== END ==
PROVIDERS: PCP Internal Medicine; Visit Provider Physical Medicine & Rehabilitation
DX: Z20.822 Contact with and (suspected) exposure to COVID-19 (principal)
CPT/HCPCS: 87635; C9803

== ENCOUNTER 2021-12-29 14:14 | Outpatient (CLI) | payer OTHER, SELFPAY ==
[2021-12-29] VITALS (11 sets, daily range): BP systolic 121–159; BP diastolic 58–83; PULSE 66–80; RESP 16–21; TEMP 36.6; O2SAT 95–98
--- NOTE | 2021-12-29 14:45 | DI.RAD.S_ITS ---
PROCEDURE: PAIN L/S FACET INJ/BLK 1ST JARVIS COMPARISON: Merged With [facility], MR, MR LUMBAR SPINE WO CON, 04/18/2021, 18:16. INDICATIONS: SPONDYLOSIS FINDINGS: 6 intraoperative fluoroscopy images demonstrate needle placement at L4, L5 and S1 bilaterally. IMPRESSION: Fluoroscopy guidance for needle placement. Dictated by: Eufemia Arguello M.D. on 12/29/2021 at 16:41 Approved by: Eufemia Arguello M.D. on 12/29/2021 at 16:42
[2021-12-29] MEDS: MIDAZOLAM 2 MG/2 ML VIAL ×2 (15:11→15:22)
[2021-12-29] MEDS: IOPAMIDOL 15 ML VIAL INJ (15:16)
[2021-12-29] MEDS: BUPIVACAINE 0.5% (PF) VIAL 30 ML (15:17)
[2021-12-29] MEDS: LIDOCAINE 1% 20 ML 10 ML INJ (15:18)
--- NOTE | 2021-12-29 15:31 | PM.PROC.IR.1 ---
Date/Time/Diagnoses Date of procedure: 12/29/21 Time of procedure: 15:31 Pre-procedure diagnosis: 1. FACET ARTHROPATHY Post-procedure diagnosis: same Procedure Notes Procedure: 1. BILATERAL- L4, L5 and S1 DIAGNOSTIC MB BLOCKS with LA Anesthetic Indications: Korin Harris is referred by Dr. Sher for treatment of Bilateral Axial LBP. Physician: Jaspal Barros Total Fluoroscopy time (seconds): 13 Total sedation minutes: 15 Complications: none Procedure in detail & Post-procedure care: DESCRIPTION OF PROCEDURE Fluoroscopically guided, contrast-controlled bilateral L4, L5 and S1 medial branch blocks with 0.5cc of 0.5% Marcaine. Following review of allergy and review of potential side effects and complications, including, but not necessarily limited to, infection, allergic reaction, local tissue breakdown, nerve injury, paralysis, stroke and possible , the patient indicated that the patient understood and agreed to proceed. An informed consent document was signed by the patient, witnessed by a nurse, and placed in the patient's chart. After review of previous anaesthesic history and IV conscious sedation the patient was deemed safe to proceed with today's procedure with IV conscious sedation as ASA class II designation. Safety time-out was performed to confirm patient ID, procedure to be performed and site of procedure. IV sedation was accomplished with a combination of 4mg of Versed was administered by the RN after DO order, titrated to patient comfort during the course of the procedure while the patient remained responsive to all verbal commands In the prone position, following sterile prep and drape of the lumbar region, the right L4, L5 and S1 anatomical location of the medial branch of the dorsal ramus was identified fluoroscopically. Subsequently an anesthetic skin wheal using 1% lidocaine solution was initiated at each of the anatomical spots. Subsequently then a 22-gauge 3.5-inch spinal needle was atraumatically introduced and advanced under fluoroscopic guidance at each of the corresponding sites at the right L4, L5 and S1 MB. After negative aspiration, 0.2cc of Isovue 200 was injected, confirming placement without vascular or intrathecal uptake. Subsequently then 0.5cc of 0.5% Marcaine solution was injected at each of the corresponding sites at the right L4, L5 and S1 medial branch locations. The identical procedure was replicated on the left. The patient tolerated the procedure well without signs or symptoms of complications prior to transfer to the recovery area continued monitoring without incident. Post-procedure, the patient was monitored initiating provocative activities to measure the amount of relief from block of the facetogenic pain. The patient reported a VAS of 7 prior to the procedure and a post-procedure VAS of 1. It has been a pleasure to assist in the diagnostic and therapeutic care of your patient. POST OP INSTRUCTIONS The patient was provided with a Pain Log to complete over the next several hours and subsequent days prior to the patient's follow up with the ordering physician. If the patient has business operations specialist relief to the solution applied, then they may be a candidate for medial branch rhizotomy. The patient is aware, was provided, once again, with a Pain Log and will follow up with the referring physician for review and clinical correlation
== END 2021-12-29 16:07 | disposition home or self-care (01) ==
PROVIDERS: PCP Internal Medicine; Referring Provider Physical Medicine & Rehabilitation; Visit Provider Physical Medicine & Rehabilitation
DX: M47.816 Spondylosis without myelopathy or radiculopathy, lumbar region (principal); M47.817 Spondylosis without myelopathy or radiculopathy, lumbosacral region
CPT/HCPCS: 64493; 64494; 99152; J2250

== ENCOUNTER → 2022-02-13 11:15 | Outpatient (CLI) | payer OTHER, SELFPAY ==
[2022-02-13 13:08] LABS: COVID19 -Nasal RAPID Negative (Negative)
== END ==
PROVIDERS: PCP Internal Medicine; Visit Provider Physical Medicine & Rehabilitation
DX: Z20.822 Contact with and (suspected) exposure to COVID-19 (principal)
CPT/HCPCS: 87635; C9803

== ENCOUNTER 2022-02-14 07:33 | Outpatient (CLI) | payer OTHER, SELFPAY ==
[2022-02-14] VITALS (28 sets, daily range): BP systolic 108–151; BP diastolic 58–83; PULSE 22–115; RESP 13–97; TEMP 36.2; O2SAT 92–99
--- NOTE | 2022-02-14 07:33 | DI.RAD.S_ITS ---
PROCEDURE: PAIN L INTERLAMINAR/CAUDAL INJ INDICATIONS: SPONDYLOSIS COMPARISON: [facility], XA, PAIN L INTERLAMINAR/CAUDAL INJ, 11/08/2021, 15:58. FINDINGS: Fluoroscopic spot filming was performed to verify placement of a spinal needle at the L4-L5 level, as labeled on the films. Appropriate location of the needle tip was confirmed by injection of iodinated contrast. IMPRESSION: Intraprocedural examination within normal limits. Dictated by: Raimundo Murillo M.D. on 02/14/2022 at 9:26 Approved by: Raimundo Murillo M.D. on 02/14/2022 at 9:26
[2022-02-14] MEDS: MIDAZOLAM 2 MG/2 ML VIAL ×5 (08:30→10:15)
[2022-02-14] MEDS: BUPIVACAINE 0.25% (PF) VIAL 2 ML INJ (08:35)
[2022-02-14] MEDS: BETAMETHASONE 30 MG/5 ML MDV 6 MG INJ (08:35)
[2022-02-14] MEDS: IOPAMIDOL 15 ML VIAL 3 ML INJ (08:35)
[2022-02-14] MEDS: DEXAMETHASONE 10 MG/ML VIAL 20 MG INJ (08:36)
--- NOTE | 2022-02-14 08:46 | PM.PROC.IR.1 ---
Date/Time/Diagnoses Date of procedure: 02/14/22 Time of procedure: 08:46 Pre-procedure diagnosis: 1. HNP WITH RADICULAR FEATURES, 2. MULTILEVEL CENTRAL STENOSIS, Post-procedure diagnosis: same Procedure Notes Procedure: 1. FLUOROSCOPICALLY GUIDED CONTRAST CONTROLLED INTERLAMINAR EPIDURAL STEROID INJECTION -L4/5 Indications: Korin Harris is referred by Dr. Sher for treatment of Bilateral Foraminal Stenosis R>L LE symptoms. Physician: Jaspal Barros Total Fluoroscopy time (seconds): 9 Total sedation minutes: 10 Complications: none Procedure in detail & Post-procedure care: FINDINGS Multilevel Central Spinal Stenosis with Nerve Root Compression DESCRIPTION OF PROCEDURE Fluoroscopically guided, contrast-controlled L4/5 translaminar epidural steroid injection. Following review of allergy and review of potential side effects and complications, including, but not necessarily limited to, infection, allergic reaction, local tissue breakdown, temporary as well as permanent nerve injury, paralysis, stroke and possible , the patient indicated that the patient understood and agreed to proceed. An informed consent document was signed by the patient, witnessed by a nurse, and placed in the patient's chart. Additionally, other treatment options including modalities, medications, and physical therapy were reviewed with the patient. After review of previous anaesthesic history and IV conscious sedation the patient was deemed safe to proceed with today?s procedure with IV conscious sedation as ASA class II designation. Safety time-out was performed to confirm patient ID, procedure to be performed and site of procedure. IV sedation was accomplished with a combination of 2mg of Versed was administered by the RN after DO order, titrated to patient comfort during the course of the procedure while the patient remained responsive to all verbal commands In the prone position, following sterile prep and drape of the lumbar region, the L4/5 translaminar space was identified fluoroscopically. The skin was anesthetized via a 25-gauge, 1.5inch needle with 1% lidocaine solution. At this point, a 22-gauge short bevel spinal needle was atraumatically introduced and advanced under fluoroscopic guidance into the region of the L4/5 translaminar space. Depth was confirmed on lateral view. Radiological data, including multiple fluoroscopic views of the lumbar spine, reveal a spinal needle at the L4/5 translaminar space. Lateral views then show placement of the needle in the epidural space. Subsequent views show contrast material flowing superiorly and inferiorly in the epidural space. No vascular or intrathecal uptake is observed. At this point, using loss of resistance technique with saline and air, the epidural space was entered. This was confirmed following negative aspiration with injection of approximately 1.5cc of Isovue 200, showing excellent epidural flow without vascular or intrathecal uptake. At this point, 1cc of 1% lidocaine solution combined with 3cc or 20mg of dexamethasone and 6mg betamethasone was injected without incident. The patient tolerated the procedure well without signs or symptoms of complications prior to transfer to the recovery area. In the recovery area he developed gradual progressive pain associated with severe bilateral LE spasms to almost a rigid style status. He became diaphoretic, hypertensive and tachycardic due to the pain and spasms. He was transferred back to the treatment room and administered multiple doses of Versed and Fentanyl in attempt to control his pain and improve the spasms. His spasms and pain were refractory to initially oral hydrocodone of 5/325 x2. Subsequently IV meds were titrated to doses of Versed to 8mg in 2mg increments as well as Fentanyl 100mcg in two doses. This adverse reaction was felt to be associated to the procedure being conducted in his previous surgical bed with possible intrathecal uptake. His pain was improved with the above stated meds in doses as outlined and further detailed in the nursing notes. Pharmacy was then contacted to obtain IV Baclofen to assist in the release of his persistent spasms. Unfortunately, IV Baclofen was not available and thus 20mg was administered PO. As the Baclofen began to take effect the patient's symptoms relented and he became more comfortable and stable. He was then tranferred to the PACU for further observation. He continued to improve in all aspects including normalization of his vital signs, improvement in tone as well as pain. After extended observation he returned to his baseline functional level and was dismissed to home in the care of his loving spouse. They were contact later in the afternoon and reported to remain stable with minimal pain or increased tone. POST OP INSTRUCTIONS The patient was provided a Pain Log to continue to record their response to the target-specific procedure prior to follow-up visit with their referring physician. Additionally, specific post-injection care instructions and a contact number to our office were provided if concerns arise regarding possible complications associated with the procedure are suspected.
[2022-02-14] MEDS: HYDROCODONE/ACET 5/325 TABLET 2 TAB PO (09:10)
[2022-02-14] MEDS: fentaNYL 100 MCG/2 ML INJ IV (09:30)
[2022-02-14] MEDS: SODIUM CHLORIDE 0.9% 1,000 ML 100 ML IV (09:40)
[2022-02-14] MEDS: BACLOFEN 10 MG TABLET 20 MG PO (09:47)
--- NOTE | 2022-02-14 14:03 | PC.NURSE ---
0847- received patient after procedure reports he has weakness to his middle of lower back, reports pain is 8/10, minimal assist to transfer from w/c to chair. Reports that he has tingling to lower back/ upper buttocks area that radiates down bilateral legs to mid thigh. 0855- Dr Barros in room talking with patient. Continues to have pain and explains symptoms to Dr Barros. 0905- Pain continue to increase reports that its tingling down both legs all the way down his legs, his legs are becoming more rigid and he is started to become diaphoretic. This RN spoke with Dr barros received verbal order for [place] 5/325mg PO 2 tabs now. Patient continues to have increased discomfort asks to lay on belly thinks it will help, Stretcher brought into room, Radha RN, Merry RN helped assist patient to stretcher, unable to bare weight, legs are rigid and is unable to bend knees. Patient is very uncomfortable on stomach, attempt multiple different positions, IV torn out with all movement new one placed to right AC. Dr Barros in room assessing patient. Patient taken back to procedure room, hooked up to all monitors and Verbal orders for IV medication given see MAR for meds and times. Patient started to get some relief, unable to move legs but continues to feel sensation. 1010- patient moved via stretcher to room 5 in PACU for further monitoring by this RN. Dr Barros at bedside and patient reports pain is increasing again. Verbal order for 2mg diazepam given via IV. Patient much more relaxed and able to rest and fall asleep intermittently. 1045- Dr Barros back to assess patient, continues to be drowsy but reports that his pain is under control and rates it 4/10. 1125- Assisted patient to site up in bed, reports pain is 1/10, able to move bilateral lower extremities. Dr Barros back at bedside SBA transfer in W/C, continues to rate pain 1/10. was given update by Dr Barros. 1145- Patient denies dizziness, numbness or tingling to bilateral lower legs. Reports he still feels slightly stiff but nothing like he was. Patient and spouse advised to take it easy the rest of the day, Do not leave alone, use walker to ambulate today. Written times of last dose of [place] and Baclofen given. Encouraged to use CPAP while sleeping today as well. Patient and have no questions at this time.
== END 2022-02-14 11:45 | disposition home or self-care (01) ==
LOC: RAD 07:33
PROVIDERS: PCP Internal Medicine; Referring Provider Physical Medicine & Rehabilitation; Visit Provider Physical Medicine & Rehabilitation
DX: M48.061 Spinal stenosis, lumbar region without neurogenic claudication (principal); M51.16 Intervertebral disc disorders with radiculopathy, lumbar region; I97.3 Postprocedural hypertension; M62.830 Muscle spasm of back; R00.0 Tachycardia, unspecified; R61 Generalized hyperhidrosis
CPT/HCPCS: 62323; 99152; J0702; J1100; J2250; J3010; J3360

== ENCOUNTER → 2022-06-14 10:57 | Outpatient (CLI) | payer OTHER, SELFPAY ==
--- NOTE | 2022-06-14 10:58 | DI.RAD.S_ITS ---
PROCEDURE: XR KNEE RT 3V INDICATIONS: Right knee pain TECHNIQUE: 3 views of the knee were acquired. COMPARISON: [facility], , XR KNEE RT 3V, 07/09/2019, 9:53. FINDINGS: Bones: The ACL replacement hardware. Mild to moderate overall spondylosis, particularly affecting the patellofemoral compartment. Insertional patellar enthesopathy. No dislocation. The Soft tissues: Possible small joint effusion. IMPRESSION: No acute radiographic abnormality. ACL replacement hardware and degenerative changes are present. If there is high concern for further derangement, consider MRI evaluation. Dictated by: Jose Manuel Francis M.D. on 06/14/2022 at 14:27 Approved by: Jose Manuel Francis M.D. on 06/14/2022 at 14:28
== END ==
PROVIDERS: PCP Internal Medicine; Referring Provider Physical Medicine & Rehabilitation; Visit Provider Physical Medicine & Rehabilitation
DX: M17.11 Unilateral primary osteoarthritis, right knee (principal); M25.561 Pain in right knee; M16.12 Unilateral primary osteoarthritis, left hip; M96.1 Postlaminectomy syndrome, not elsewhere classified; M47.816 Spondylosis without myelopathy or radiculopathy, lumbar region; M48.061 Spinal stenosis, lumbar region without neurogenic claudication; M50.20 Other cervical disc displacement, unspecified cervical region
CPT/HCPCS: 20611; 73562; 99214; J0702

== ENCOUNTER → 2022-09-01 11:10 | Outpatient (CLI) | payer OTHER, SELFPAY ==
--- NOTE | 2022-09-01 | DI.RAD.S_ITS ---
PROCEDURE: XR HIP W PEL IF DONE JARVIS MIN 4V INDICATIONS: Arthritis TECHNIQUE: AP pelvis with lateral view(s) of the right and left hip(s). COMPARISON: None. FINDINGS: Bones: Mild degenerative changes of the right hip with mild disc space narrowing. Severe degenerative changes of the left hip with complete loss of the joint space, subchondral sclerosis, and subchondral cystic changes. The symphysis pubis has mild degenerative changes. Soft tissues: The visualized bowel gas pattern is normal. No suspicious soft tissue calcifications. IMPRESSION: 1. Severe degenerative changes of the left hip consistent with osteoarthritis. 2. Mild degenerative changes of the right hip consistent with osteoarthritis. Dictated by: Javi Jackson M.D. on 09/01/2022 at 12:27 Approved by: Javi Jackson M.D. on 09/01/2022 at 12:28
== END ==
PROVIDERS: PCP Internal Medicine; Referring Provider Internal Medicine; Visit Provider Internal Medicine
DX: M16.0 Bilateral primary osteoarthritis of hip (principal)
CPT/HCPCS: 73522

== ENCOUNTER → 2022-09-11 08:46 | Outpatient (CLI) | payer OTHER, SELFPAY ==
--- NOTE | 2022-09-11 08:52 | DI.MRI.S_ITS ---
PROCEDURE: MR LUMBAR SPINE WO/W CON INDICATIONS: Benign lipomatous neoplasm of other sites TECHNIQUE: Noncontrast sagittal T1 spin echo and T2 fast spin echo, sagittal STIR, axial T1 and T2 fast spin echo through the lumbar spine. In cases with scoliosis, additional coronal T2 fast spin echo may be performed. After the administration of contrast, sagittal and axial T1 spin echo with fat saturation through the lumbar spine. COMPARISON: [facility], MR, MR LUMBAR SPINE WO CON, 04/18/2021, 18:16. FINDINGS: Image quality: Excellent. Alignment and curvature: Interval left hemilaminectomy at L4-L5. Trace retrolisthesis of L1 on L2. 5 mm retrolisthesis of L2 on L3. Trace anterolisthesis of L3 on L4. Marrow: Marrow is of normal overall signal. No acute vertebral body compression fractures. No suspicious marrow enhancement. Spinal cord: On the previous study, the conus was noted to terminate at the inferior L1 level. 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 There is epidural lipomatosis. There is enhancement of the terminal aspect of the thecal sac, extending from L5 through S1-S2. Visualized spinal cord demonstrates normal signal, without suspicious enhancement. Paraspinous soft tissues: No paravertebral masses or abnormal enhancement. T12-L1: No canal stenosis or foraminal stenosis. L1-L2: Disc bulge. Facet hypertrophy. Epidural lipomatosis. No significant canal stenosis. At least moderate bilateral foraminal narrowing with flattening deformity on the exiting bilateral L1 nerve roots. L2-L3: Disc bulge. Epidural lipomatosis. Facet hypertrophy. Mild canal stenosis. Severe bilateral foraminal narrowing with bilateral foraminal L2 nerve root impingement. L3-L4: Disc bulge. Facet and ligament hypertrophy. Moderate canal stenosis. Severe right foraminal narrowing with right foraminal L3 nerve root impingement. Mild to moderate left foraminal narrowing. L4-L5: Interval left hemilaminectomy. Epidural lipomatosis. No significant canal stenosis. At least moderate bilateral foraminal narrowing with bilateral foraminal flattening on the L4 nerve root sleeves. L5-S1: Bilateral facet hypertrophy. No canal stenosis. Mild right foraminal narrowing. Moderate to severe left foraminal narrowing with a degree of left foraminal L5 nerve root impingement. IMPRESSION: 1. Interval decompressive surgery at L4-L5. 2. 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 3. There is multilevel epidural lipomatosis and facet arthropathy. 4. Canal stenosis is mild at L2-L3 and moderate at L3-L4. 5. Significant multilevel foraminal narrowing as described above, with multilevel foraminal nerve root impingement. Dictated by: Claude Echevarria M.D. on 09/11/2022 at 18:01 Approved by: Claude Echevarria M.D. on 09/11/2022 at 18:11
== END ==
PROVIDERS: PCP Internal Medicine; Referring Provider Internal Medicine; Visit Provider Internal Medicine
DX: M48.061 Spinal stenosis, lumbar region without neurogenic claudication (principal); M48.07 Spinal stenosis, lumbosacral region; G03.9 Meningitis, unspecified; M47.816 Spondylosis without myelopathy or radiculopathy, lumbar region; M47.817 Spondylosis without myelopathy or radiculopathy, lumbosacral region; D17.79 Benign lipomatous neoplasm of other sites; M99.33 Osseous stenosis of neural canal of lumbar region; M24.28 Disorder of ligament, vertebrae
CPT/HCPCS: 72158; A9579

== ENCOUNTER 2023-06-05 16:53 | Emergency (ER) | payer OTHER, SELFPAY ==
[2023-06-05 17:07] VITALS: BP 120/60; PULSE 66; RESP 16; TEMP 36.4; O2SAT 97; BMI 30.5
--- NOTE | 2023-06-05 17:15 | DI.RAD.S_ITS ---
PROCEDURE: XR HIP W PEL IF DONE LT 2V INDICATIONS: history of hip replacement/felt heard a pop TECHNIQUE: AP pelvis with lateral view(s) of the left hip(s). COMPARISON: [facility] With [facility], CR, XR HIP 2 VIEWS LEFT, 02/05/2023, 8:54. [facility], CR, XR HIP W PEL IF DONE JARVIS 3TO4V, 09/01/2022, 11:24. FINDINGS: Bones: No suspicious fractures. Left hip arthroplasty components are in place, normal in position and no periprosthetic lucency. Mild degenerative change in the right hip. Soft tissues: The visualized bowel gas pattern is normal. No suspicious soft tissue calcifications. IMPRESSION: No evidence of periprosthetic fracture or dislocation. Dictated by: Sadaf Tierney M.D. on 06/05/2023 at 18:46 Approved by: Sadaf Tierney M.D. on 06/05/2023 at 18:47
--- NOTE | 2023-06-05 19:07 | ED.EXTPRO ---
HPI - Extremity Problem <Virgilio Orellana PA-C - Last Filed: 06/05/23 19:12> General Chief complaint: Extremity Problem,Nontraumatic Stated complaint: lt hip pain, new hip on January 20 Time Seen by Provider: 06/05/23 17:27 Source: patient Mode of arrival: Wheelchair History of Present Illness HPI Narrative: 72-year-old male status post a left hip replacement done in December 2022 presents to the ED with left hip pain. Patient states he was moving a coffee table 2 weeks ago, when he felt a pop in his left hip. Today, he again felt a pop in the same hip when he sneezed. Patient reports that it is very painful to walk. No other trauma. Patient also recently took a long motorcycle trip. Related Data Home Medications Medication Instructions Recorded Confirmed rosuvastatin 20 mg tablet 20 mg PO DAILY 08/25/20 06/14/22 omega 0-dfx-ils-fish oil 60 mg-90 1 cap PO DAILY 12/07/21 06/14/22 mg-500 mg capsule (Fish Oil) tamsulosin 0.4 mg capsule 0.4 mg PO DAILY 12/07/21 06/14/22 lisinopril 20 mg tablet 20 mg PO BID 02/06/22 06/14/22 chlorthalidone 25 mg tablet 25 mg PO DAILY 06/14/22 06/14/22 pantoprazole 20 mg tablet,delayed 20 mg PO BEDTIME 06/14/22 06/14/22 release Previous Rx's Medication Instructions Recorded venlafaxine 75 mg tablet,extended 75 mg PO QDAY #90 tabs 06/12/19 release 24 hr baclofen 20 mg tablet 20 mg PO TID PRN spasms #60 tabs 06/14/22 hydrocodone 5 mg-acetaminophen 325 1 tab PO BID #30 tabs 05/28/23 mg tablet gabapentin 600 mg tablet 600 mg PO TID nerve pain #710 tabs 06/01/23 Allergies Allergy/AdvReac Type Severity Reaction Status Date / Time No Known Drug Allergies Allergy Verified 06/05/23 17:07 Review of Systems <Virgilio Orellana PA-C - Last Filed: 06/05/23 19:12> Constitutional Constitutional: Denies chills, Denies fatigue, Denies fever(s), Denies frequent falls, Denies lethargy and Denies weakness Eyes Eyes: Denies change in vision, Denies eye discharge, Denies irritation and Denies loss of vision ENT Ears, Nose, Mouth, and Throat: Denies change in voice, Denies dizziness, Denies neck pain, Denies sore throat and Denies throat swelling Cardiovascular Cardiovascular: Denies chest pain, Denies irregular heart rhythm, Denies lightheadedness, Denies palpitations, Denies dyspnea, Denies dyspnea on exertion and Denies orthopnea Respiratory Respiratory: Denies cough, Denies dyspnea, Denies dyspnea on exertion and Denies wheezing Gastrointestinal Gastrointestinal: Denies abdominal pain, Denies change in bowel habits, Denies diarrhea, Denies nausea and Denies vomiting Musculoskeletal Musculoskeletal: Denies neck pain and Denies numbness Comments: Left hip pain Integumentary/Breasts Skin/Breast: Denies pruritus, Denies erythema, Denies rash and Denies wounds Neurologic Neurologic: Denies behavioral changes, Denies confusion, Denies dizziness, Denies frequent falls, Denies loss of vision, Denies numbness and Denies weakness Psychiatric Psychiatric: Denies anxiety, Denies behavioral changes, Denies confusion, Denies depression, Denies homicidal ideation and Denies suicidal ideation Endocrine Endocrine: Denies fatigue, Denies flushing and Denies palpitations Hematologic/Lymphatic Hematologic/Lymphatic: Denies easy bruising Allergic/Immunologic Allergic/Immunologic: Denies urticaria, Denies throat swelling and Denies wheezing Patient History <Virgilio Orellana PA-C - Last Filed: 06/05/23 19:12> Medical History Arthritis of left hip Herniated disc, cervical DJD (degenerative joint disease) of knee Lumbar post-laminectomy syndrome Facet arthropathy, lumbar Wrist pain, acute Stenosis of cervical spine with myelopathy Herniated nucleus pulposus, C6-7 Herniated nucleus pulposus, C6-7 Rotator cuff impingement syndrome of left shoulder HNP (herniated nucleus pulposus), cervical Right knee DJD Chronic a-fib Lumbosacral spondylosis with radiculopathy Spinal stenosis at L4-L5 level Deviated septum Surgical History History of repair of anterior cruciate ligament of right knee H/O hernia repair Hx of appendectomy H/O hand surgery H/O knee surgery Family History Father Lymphoma Mother No problems noted. Sister Pancreatic cancer Sister COPD (chronic obstructive pulmonary disease) Social History Smoking Status: Never smoker Tobacco: How many years used: 0 quit status: quit date established Smoking Status: Never smoker alcohol intake frequency: 0-2 drinks per day Substance Use Type: does not use Exam <Virgilio Orellana PA-C - Last Filed: 06/05/23 19:12> Narrative Exam Narrative: Const General:?cooperative, healthy appearing and comfortable HENMT Head:?normal to inspection Ears:?hearing grossly normal bilaterally Nose:?external nose normal Face and sinus:?normal facial exam and sinuses nontender Mouth:?oral mucosae normal Throat:?posterior oropharynx normal Eyes General:?appearance normal, both eyes and all related structures Neck Neck:?normal visual inspection and no lymphadenopathy noted Resp Effort & Inspection:?normal respiratory effort Auscultation:?clear to auscultation bilaterally Cardio Rate:?regular rate Rhythm:?regular rhythm Musculoskeletal No bruising, no deformities, no tenderness to palpation. Patient appears neurovascularly intact. Neuro General:?patient alert, patient awake and patient oriented x3 Initial Vital Signs Initial Vital Signs: Vital Signs Temperature 97.6 F 06/05/23 17:07 Pulse Rate 66 06/05/23 17:07 Respiratory Rate 16 06/05/23 17:07 Blood Pressure 120/60 06/05/23 17:07 Pulse Oximetry 97 06/05/23 17:07 Oxygen Delivery Method Room Air 06/05/23 17:07 <Susan Pena DO - Last Filed: 06/06/23 04:41> Initial Vital Signs Initial Vital Signs: Vital Signs Temperature 97.6 F 06/05/23 17:07 Pulse Rate 66 06/05/23 17:07 Respiratory Rate 16 06/05/23 17:07 Blood Pressure 120/60 06/05/23 17:07 Pulse Oximetry 97 06/05/23 17:07 Oxygen Delivery Method Room Air 06/05/23 17:07 Course <Virgilio Orellana PA-C - Last Filed: 06/05/23 19:12> Orders Ordered: Discontinued Medications Lidocaine (Lidocaine Patch 1 Each Adh..Patch) 1 each TOP NOW ONE Stop: 06/05/23 19:07 Last Admin: 06/05/23 19:18 Dose: 1 each Documented By: BS Vital Signs Vital signs: Vital Signs - 8 hr 06/05/23 17:07 Temperature 97.6 F Pulse Rate 66 Respiratory Rate 16 Blood Pressure 120/60 Pulse Oximetry 97 Oxygen Delivery Method Room Air <Susan Pena DO - Last Filed: 06/06/23 04:41> Orders Ordered: Discontinued Medications Lidocaine (Lidocaine Patch 1 Each Adh..Patch) 1 each TOP NOW ONE Stop: 06/05/23 19:07 Last Admin: 06/05/23 19:18 Dose: 1 each Documented By: BS Vital Signs Vital signs: Vital Signs - 8 hr 06/05/23 17:07 Temperature 97.6 F Pulse Rate 66 Respiratory Rate 16 Blood Pressure 120/60 Pulse Oximetry 97 Oxygen Delivery Method Room Air MDM - Extremity (Nontraumatic) <Virgilio Orellana PA-C - Last Filed: 06/05/23 19:12> MDM Narrative Medical decision making narrative: 72-year-old male status post a left hip replacement done in December 2022 presents to the ED with left hip pain. Concern for fracture/dislocation versus disruption to the hip replacement versus musculoskeletal sprain/strain versus other. Obtained x-ray which shows no fractures or dislocations of the hip replacement appears intact. Discussed findings with patient. Patient's symptoms most likely due to a musculoskeletal strain/sprain. Recommend supportive measures with lidocaine patches, heat packs, elevation, rest. Recommend NSAIDs. Recommend follow-up with PCP as soon as possible. ED return precautions discussed with patient. Patient verbalized understanding. Medical records reviewed: Yes Discharge Plan Departure Patient Disposition: Home Clinical Impression: Acute hip pain Qualifiers: Laterality: left Qualified Code(s): M25.552 - Pain in left hip Instructions: DI for Hip Pain Activity Restrictions/Additional Instructions: You were evaluated in the ED today for left-sided hip pain. Your x-ray shows no fractures or dislocations and your hip replacement seems to be intact. Your symptoms are likely due to a musculoskeletal sprain/strain from your injury. You may apply heat packs, lidocaine patches, elevate the leg above heart level, rest. You may also take ibuprofen 600 mg 3 times a day with food for the pain and inflammation. Please follow-up with your PCP as soon as possible. Return to the ED if you have worsening symptoms, numbness, tingling, weakness. Prescriptions: No Action venlafaxine 75 mg tablet extended release 24hr 75 mg PO QDAY Qty: 90 2RF hydrocodone-acetaminophen 5-325 mg tablet 1 tab PO BID Qty: 30 0RF gabapentin 600 mg tablet 600 mg PO TID MDD [id number] mg daily Qty: 710 0RF Rx Instructions: PT TAKES 1-2-600MG IN AM AND NOON 1-600MG, THEN 1-600MG AT DINNER THEN 2 AT BEDTIME medication can cause drowsiness use with caution tamsulosin 0.4 mg capsule 0.4 mg PO DAILY omega 5-pcq-jmx-fish oil [Fish Oil] 60-90-500 mg capsule 1 cap PO DAILY pantoprazole 20 mg tablet,delayed release (DR/EC) 20 mg PO BEDTIME chlorthalidone 25 mg tablet 25 mg PO DAILY baclofen 20 mg tablet 20 mg PO TID PRN (Reason: spasms) Qty: 60 1RF rosuvastatin 20 mg tablet 20 mg PO DAILY lisinopril 20 mg tablet 20 mg PO BID Referrals: Gerald Sher MD [Primary Care Provider] - Stand Alone Forms: Patient Portal/API ED Sign-out <Susan Pena DO - Last Filed: 06/06/23 04:41> Cosign ED Attending Cosignature Attestation: I was immediately available in the department for consultation. Documentation has been reviewed.
[2023-06-05] MEDS: LIDOCAINE PATCH 1 EACH ADH..PATCH TOP (19:18)
[2023-06-05 19:24] VITALS: BP 159/78; PULSE 61; RESP 18; O2SAT 95
== END 2023-06-05 19:24 | disposition home or self-care (01) ==
PROVIDERS: Emergency Provider Student in an Organized Health Care Education/Training Program; PCP Internal Medicine; Referring Provider Internal Medicine Hematology & Oncology
DX: M25.552 Pain in left hip (principal)
CPT/HCPCS: 73502; 99283

== ENCOUNTER → 2023-07-13 10:29 | Outpatient (CLI) | payer OTHER, SELFPAY ==
--- NOTE | 2023-07-13 | DI.RAD.S_ITS ---
PROCEDURE: XR KNEE RT 3V INDICATIONS: OSTEOARTHRITIS BILATERAL TECHNIQUE: 3 views of the knee were acquired. COMPARISON: [facility], , XR KNEE RT 3V, 06/14/2022, 11:05. [facility], , XR KNEE RT 3V, 07/09/2019, 9:53. FINDINGS: Bones: No fractures or dislocations. Stable appearance of ACL replacements hardware. Moderate tricompartmental osteoarthritic changes, most pronounced within the medial and patellofemoral compartments. No suspicious bony lesions. Soft tissues: No joint effusion. No suspicious soft tissue calcifications. IMPRESSION: Moderate osteoarthritic changes of the knee. Stable postsurgical sequela. Dictated by: Chris Wright M.D. on 07/13/2023 at 12:21 Approved by: Chris Wright M.D. on 07/13/2023 at 12:22
--- NOTE | 2023-07-13 | DI.RAD.S_ITS ---
PROCEDURE: XR KNEE LT 3V INDICATIONS: OSTEOARTHRITIS BILATERAL TECHNIQUE: 3 views of the knee were acquired. COMPARISON: [facility], GUILLERMO, XR KNEE RT 3V, 06/14/2022, 11:05. [facility], CR, XR KNEE RT 3V, 07/09/2019, 9:53. FINDINGS: Bones: No fractures or dislocations. Tricompartmental osteoarthritic changes. There is tricompartmental marginal spurring. Moderate medial joint space narrowing. No suspicious bony lesions. Soft tissues: No joint effusion. No suspicious soft tissue calcifications. IMPRESSION: Moderate osteoarthritic changes of the left knee. Dictated by: Chris Wright M.D. on 07/13/2023 at 12:19 Approved by: Chris Wright M.D. on 07/13/2023 at 12:21
== END ==
PROVIDERS: PCP Internal Medicine; Referring Provider Internal Medicine; Visit Provider Internal Medicine
DX: M17.0 Bilateral primary osteoarthritis of knee (principal); M75.42 Impingement syndrome of left shoulder; M16.12 Unilateral primary osteoarthritis, left hip; M50.20 Other cervical disc displacement, unspecified cervical region; M96.1 Postlaminectomy syndrome, not elsewhere classified; M47.816 Spondylosis without myelopathy or radiculopathy, lumbar region; M50.223 Other cervical disc displacement at C6-C7 level
CPT/HCPCS: 20611; 73562; 99214; J0702

== ENCOUNTER 2023-07-24 07:24 | Outpatient (CLI) | payer OTHER, SELFPAY ==
[2023-07-24] VITALS (11 sets, daily range): BP systolic 112–136; BP diastolic 57–70; PULSE 68–85; RESP 11–20; TEMP 36.7; O2SAT 95–98
--- NOTE | 2023-07-24 08:00 | DI.RAD.S_ITS ---
PROCEDURE: PAIN L INTERLAMINAR/CAUDAL INJ INDICATIONS: SPONDYLOSIS COMPARISON: [facility], XA, PAIN L INTERLAMINAR/CAUDAL INJ, 02/14/2022, 8:33. FINDINGS: Fluoroscopic spot filming was performed to verify placement of a spinal needle at the L5-S1 level, as labeled on the films. Appropriate location of the needle tip was confirmed by injection of iodinated contrast. IMPRESSION: No significant intraprocedural abnormality. Dictated by: Raimundo Murillo M.D. on 07/24/2023 at 10:50 Approved by: Raimundo Murillo M.D. on 07/24/2023 at 10:51
[2023-07-24] MEDS: MIDAZOLAM 2 MG/2 ML VIAL IV (08:17)
[2023-07-24] MEDS: BUPIVACAINE 0.25% (PF) VIAL 2 ML INJ (08:24)
[2023-07-24] MEDS: iopamidoL 15 ML VIAL 3 ML INJ (08:25)
[2023-07-24] MEDS: DEXAMETHASONE 10 MG/ML VIAL 20 MG INJ (08:25)
--- NOTE | 2023-07-24 08:45 | P.PCN_ITS ---
Date/Time/Diagnoses Date of procedure: 07/24/23 Time of procedure: 08:46 Pre-procedure diagnosis: 1. HNP WITH RADICULAR FEATURES, 2. MULTILEVEL CENTRAL STENOSIS, Post-procedure diagnosis: same Procedure Notes Procedure: 1. FLUOROSCOPICALLY GUIDED CONTRAST CONTROLLED INTERLAMINAR EPIDURAL STEROID INJECTION - L5/S1 Indications: Korin is referred by Dr. Sher for treatment of Bilateral Foraminal Stenosis L>R LE symptoms. Physician: Jaspal Barros Total Fluoroscopy time (seconds): 17 Total sedation minutes: 24 Complications: none Procedure in detail & Post-procedure care: FINDINGS Multilevel Central Spinal Stenosis with Nerve Root Compression DESCRIPTION OF PROCEDURE Fluoroscopically guided, contrast-controlled L5/S1 translaminar epidural steroid injection. Following review of allergy and review of potential side effects and complications, including, but not necessarily limited to, infection, allergic reaction, local tissue breakdown, temporary as well as permanent nerve injury, paralysis, stroke and possible , the patient indicated that the patient understood and agreed to proceed. An informed consent document was signed by the patient, witnessed by a nurse, and placed in the patient's chart. Additionally, other treatment options including modalities, medications, and physical therapy were reviewed with the patient. After review of previous anaesthesic history and IV conscious sedation the patient was deemed safe to proceed with today?s procedure with IV conscious sedation as ASA class II designation. Safety time-out was performed to confirm patient ID, procedure to be performed and site of procedure. IV sedation was accomplished with a combination of 2mg of Versed administered by the RN after DO order, titrated to patient comfort during the course of the procedure while the patient remained responsive to all verbal commands. In the prone position, following sterile prep and drape of the lumbar region, the L5/S1 translaminar space was identified fluoroscopically. The skin was anesthetized via a 25-gauge, 1.5-inch needle with 1% lidocaine solution. At this point, a 22-gauge short bevel spinal needle was atraumatically introduced and advanced under fluoroscopic guidance into the region of the L5/S1 translaminar space. Depth was confirmed on lateral view. Radiological data, including multiple fluoroscopic views of the lumbar spine, reveal a spinal needle at the L5/S1 translaminar space. Lateral views then show placement of the needle in the epidural space. Subsequent views show contrast material flowing superiorly and inferiorly in the epidural space. No vascular or intrathecal uptake is observed. At this point, using loss of resistance technique with saline and air, the epidural space was entered. This was confirmed following negative aspiration with injection of approximately 1.5cc of Isovue 200, showing excellent epidural flow without vascular or intrathecal uptake. At this point, 1 cc of 1% lidoc brent solution combined with 2cc or 10mg of dexamethasone and 6mg of betamethasone was injected without incident. The patent tolerated the procedure without signs of symptoms of complications prior to transfer to the recovery area for further monitoring. The patient was then transferred to the recovery area where they were observed for an appropriate period of time after the injection. The patient reported a VAS score of 8 prior to the procedure and a post-procedure VAS of 1. POST OP INSTRUCTIONS The patient was provided a Pain Log to continue to record their response to the target-specific procedure prior to follow-up visit with their referring physician. Additionally, specific post-injection care instructions and a contact number to our office were provided if concerns arise regarding possible complications associated with the procedure are suspected.
--- NOTE | 2023-07-24 08:58 | PC.NURSE ---
Pain Procedure Patient states that pain is about gone but reports some tingling down Left leg. Dr. Barros aware.
== END 2023-07-24 09:00 | disposition home or self-care (01) ==
LOC: RAD 07:24
PROVIDERS: PCP Internal Medicine; Referring Provider Physical Medicine & Rehabilitation; Visit Provider Physical Medicine & Rehabilitation
DX: M48.061 Spinal stenosis, lumbar region without neurogenic claudication (principal); M51.27 Other intervertebral disc displacement, lumbosacral region
CPT/HCPCS: 62323; 99152; 99153; J0702; J1100; J2250; J3490

== ENCOUNTER 2023-11-06 14:54 | Outpatient (CLI) | payer OTHER, SELFPAY ==
[2023-11-06] VITALS (8 sets, daily range): BP systolic 118–171; BP diastolic 59–77; PULSE 66–72; RESP 14–21; TEMP 36.5; O2SAT 97–99
--- NOTE | 2023-11-06 15:30 | DI.RAD.S_ITS ---
PROCEDURE: PAIN L INTERLAMINAR/CAUDAL INJ INDICATIONS: STENOSIS COMPARISON: [facility], , PAIN L INTERLAMINAR/CAUDAL INJ, 07/24/2023, 9:24. FINDINGS: Fluoroscopic spot filming was performed to verify placement of spinal needles at the L3-4 level(s), as labeled on the films. Appropriate location(s) of the needle tip(s) was confirmed by injection of iodinated contrast. IMPRESSION: Fluoroscopic guidance utilized for an L3-4 trans laminar epidural steroid injection. Dictated by: Ángel Loving M.D. on 11/06/2023 at 16:45 Approved by: Ángel Loving M.D. on 11/06/2023 at 16:45
[2023-11-06] MEDS: MIDAZOLAM 2 MG/2 ML VIAL IV (16:17)
[2023-11-06] MEDS: BUPIVACAINE 0.25% (PF) VIAL 2 ML INJ (16:22)
[2023-11-06] MEDS: DEXAMETHASONE 10 MG/ML VIAL 30 MG INJ (16:23)
[2023-11-06] MEDS: iopamidoL 15 ML VIAL 3 ML INJ (16:23)
--- NOTE | 2023-11-06 16:33 | P.PCN_ITS ---
Date/Time/Diagnoses Date of procedure: 11/06/23 Time of procedure: 16:33 Pre-procedure diagnosis: 1. HNP WITH RADICULAR FEATURES, 2. MULTILEVEL CENTRAL STENOSIS, Post-procedure diagnosis: same Procedure Notes Procedure: 1. FLUOROSCOPICALLY GUIDED CONTRAST CONTROLLED INTERLAMINAR EPIDURAL STEROID INJECTION - L3/4 Indications: Korin Harris is referred by Dr. Sher for treatment of Bilateral Foraminal Stenosis L>R LE symptoms. Physician: Jaspal Barros Total Fluoroscopy time (seconds): 13 Total sedation minutes: 15 Complications: none Procedure in detail & Post-procedure care: FINDINGS Multilevel Central Spinal Stenosis with Nerve Root Compression DESCRIPTION OF PROCEDURE Fluoroscopically guided, contrast-controlled L3/4 translaminar epidural steroid injection. Following review of allergy and review of potential side effects and complications, including, but not necessarily limited to, infection, allergic reaction, local tissue breakdown, temporary as well as permanent nerve injury, paralysis, stroke and possible , the patient indicated that the patient understood and agreed to proceed. An informed consent document was signed by the patient, witnessed by a nurse, and placed in the patient's chart. Additionally, other treatment options including modalities, medications, and physical therapy were reviewed with the patient. After review of previous anaesthesic history and IV conscious sedation the patient was deemed safe to proceed with today?s procedure with IV conscious sedation as ASA class II designation. Safety time-out was performed to confirm patient ID, procedure to be performed and site of procedure. IV sedation was accomplished with a combination of 2mg of Versed was administered by the RN after DO order, titrated to patient comfort during the course of the procedure while the patient remained responsive to all verbal commands. In the prone position, following sterile prep and drape of the lumbar region, the L3/4 translaminar space was identified fluoroscopically. The skin was anesthetized via a 25-gauge, 1.5-inch needle with 1% lidocaine solution. At this point, a 22-gauge short bevel spinal needle was atraumatically introduced and advanced under fluoroscopic guidance into the region of the L3/4 translaminar space. Depth was confirmed on lateral view. Radiological data, including multiple fluoroscopic views of the lumbar spine, reveal a spinal needle at the L3/4 translaminar space. Lateral views then show placement of the needle in the epidural space. Subsequent views show contrast material flowing superiorly and inferiorly in the epidural space. No vascular or intrathecal uptake is observed. At this point, using loss of resistance technique with saline and air, the epidural space was entered. This was confirmed following negative aspiration with injection of approximately 1.5 cc of Isovue 200, showing excellent epidural flow without vascular or intrathecal uptake. At this point, 1cc of 1% lidocaine solution combined with 3cc or 30mg of dexamethasone was injected without incident. The patient tolerated the procedure well without signs or symptoms of complications prior to transfer to the recovery area continued monitoring without incident. The patient was then transferred to the recovery area where they were observed for an appropriate period of time after the injection. The patient reported a VAS score of 6 prior to the procedure and a post- procedure VAS of 0. POST OP INSTRUCTIONS The patient was provided a Pain Log to continue to record their response to the target-specific procedure prior to follow-up visit with their referring physician. Additionally, specific post-injection care instructions and a contact number to our office were provided if concerns arise regarding possible complications associated with the procedure are suspected.
== END 2023-11-06 16:50 | disposition home or self-care (01) ==
LOC: RAD 14:55
PROVIDERS: PCP Internal Medicine; Referring Provider Physical Medicine & Rehabilitation; Visit Provider Physical Medicine & Rehabilitation
DX: M51.16 Intervertebral disc disorders with radiculopathy, lumbar region (principal); M48.061 Spinal stenosis, lumbar region without neurogenic claudication
CPT/HCPCS: 62323; 99152; J1100; J2250; J3490

== ENCOUNTER 2024-02-12 13:57 | Outpatient (CLI) | payer OTHER, SELFPAY ==
[2024-02-12] VITALS (9 sets, daily range): BP systolic 169–187; BP diastolic 75–99; PULSE 60–72; RESP 14–18; TEMP 36.2; O2SAT 94–98
--- NOTE | 2024-02-12 14:30 | DI.RAD.S_ITS ---
PROCEDURE: PAIN L/SI FACET INJ/BLK 1STL INDICATIONS: Left L4-L5 and S1 medial branch block SA COMPARISON: [facility], CR, XR LUMBAR SPINE WITH FLEXION EXTENSION 5 VIEWS, 09/12/2022, 10:37. MR, MR LUMBAR SPINE WO/W CON, 09/11/2022, 8:49. FINDINGS: Fluoroscopic spot filming was performed to verify placement of spinal needles at the left L4, L5 and S1 level(s), as labeled on the films. Appropriate location(s) of the needle tip(s) was confirmed by injection of iodinated contrast. IMPRESSION: Fluoroscopy for pain management. Dictated by: Eufemia Arguello M.D. on 02/12/2024 at 16:41 Approved by: Eufemia Arguello M.D. on 02/12/2024 at 16:42
[2024-02-12] MEDS: MIDAZOLAM 2 MG/2 ML VIAL IV (15:09)
[2024-02-12] MEDS: iopamidoL 15 ML VIAL 3 ML INJ (15:14)
[2024-02-12] MEDS: LIDOCAINE 2% INJ SDV 5ML 10 ML INJ (15:16)
--- NOTE | 2024-02-12 15:27 | P.PCN_ITS ---
Date/Time/Diagnoses Date of procedure: 02/12/24 Time of procedure: 15:27 Pre-procedure diagnosis: FACET ARTHROPATHY Post-procedure diagnosis: same Procedure Notes Procedure: 1. Left L4, L5 and S1 MB BLOCKS SA Indications: Korin is referred by Dr. Sher for treatment of Left Axial LBP. Physician: Jaspal Barros Total Fluoroscopy time (seconds): 8 Total sedation minutes: 12 Complications: none Procedure in detail & Post-procedure care: DESCRIPTION OF PROCEDURE Fluoroscopically guided, contrast-controlled left L4, L5 and S1 medial branch blocks with 0.5cc of 2% Lidocaine. Following review of allergy and review of potential side effects and complications, including, but not necessarily limited to, infection, allergic reaction, local tissue breakdown, nerve injury, paralysis, stroke and possible , the patient indicated that the patient understood and agreed to proceed. An informed consent document was signed by the patient, witnessed by a nurse, and placed in the patient's chart. After review of previous anaesthesic history and IV conscious sedation the patient was deemed safe to proceed with today?s procedure with IV conscious sedation as ASA class II designation. Safety time-out was performed to confirm patient ID, procedure to be performed and site of procedure. IV sedation was accomplished with a combination of 2mg of Versed was administered by the RN after DO order, titrated to patient comfort during the course of the procedure while the patient remained responsive to all verbal commands. In the prone position, following sterile prep and drape of the lumbar region, the left L4, L5 and S1 anatomical location of the medial branch of the dorsal ramus was identified fluoroscopically. Subsequently an anesthetic skin wheal using 1% lidocaine solution was initiated at each of the anatomical spots. Subsequently then a 22-gauge 3.5-inch spinal needle was atraumatically introduced and advanced under fluoroscopic guidance at each of the corresponding sites at the left L4, L5 and S1 MB. After negative aspiration, 0.2cc of Isovue 200 was injected, confirming placement without vascular or intrathecal uptake. Subsequently then 0.5cc of 2% Lidocaine solution was injected at each of the corresponding sites at the left L4, L5 and S1 medial branch locations. The patient tolerated the procedure well without signs or symptoms of complications. The patient tolerated the procedure well without signs or symptoms of complications prior to transfer to the recovery area continued monitoring without incident. Post-procedure, the patient was monitored initiating provocative activities to measure the amount of relief from block of the facetogenic pain. The patient reported a VAS of 7 prior to the procedure and a post-procedure VAS of 1. It has been a pleasure to assist in the diagnostic and therapeutic care of your patient. POST OP INSTRUCTIONS The patient was provided with a Pain Log to complete over the next several hours and subsequent days prior to the patient's follow up with the ordering physician. If the patient has makeup sales advisor relief to the solution applied, then they may be a candidate for medial branch rhizotomy. The patient is aware, was provided, once again, with a Pain Log and will follow up with the referring physician for review and clinical correlation.
--- NOTE | 2024-02-13 14:58 | PC.NURSE ---
2572 post procedural call made. No answer. Message left advising the patient that if he has any questions or concerns to call the office at the number on his discharge sheet.
== END 2024-02-12 15:45 | disposition home or self-care (01) ==
PROVIDERS: PCP Internal Medicine; Referring Provider Physical Medicine & Rehabilitation; Visit Provider Physical Medicine & Rehabilitation
DX: M47.816 Spondylosis without myelopathy or radiculopathy, lumbar region (principal); M47.817 Spondylosis without myelopathy or radiculopathy, lumbosacral region
CPT/HCPCS: 64493; 64494; 99152; J2250

== ENCOUNTER 2024-08-14 08:06 | Outpatient (CLI) | payer OTHER, SELFPAY ==
[2024-08-14] VITALS (9 sets, daily range): BP systolic 115–161; BP diastolic 59–74; PULSE 68–78; RESP 12–22; TEMP 36.3; O2SAT 94–98
--- NOTE | 2024-08-14 08:06 | DI.RAD.S_ITS ---
PROCEDURE: PAIN L/SI FACET INJ/BLK 1STL INDICATIONS: Left L4-L5 and S1 medial branch blocks LA COMPARISON: [facility], XA, PAIN L/SI FACET INJ/BLK 1STL, 02/12/2024, 15:14. FINDINGS/IMPRESSION: Fluoroscopic spot filming was performed to verify placement of spinal needles at the left L4-L5 and S1 level(s), as labeled on the films. Appropriate location(s) of the needle tip(s) was confirmed by injection of iodinated contrast. Dictated by: Lonny James M.D. on 08/14/2024 at 21:25 Approved by: Lonny James M.D. on 08/14/2024 at 21:26
[2024-08-14] MEDS: MIDAZOLAM 2 MG/2 ML VIAL IV (09:13)
[2024-08-14] MEDS: BUPIVACAINE 0.5% (PF) 10 ML VIAL 2 ML INJ (09:17)
[2024-08-14] MEDS: iopamidoL 15 ML VIAL 3 ML INJ (09:17)
--- NOTE | 2024-08-14 09:29 | PM.PROC.IR.1 ---
Date/Time/Diagnoses Date of procedure: 08/14/24 Time of procedure: 09:29 Pre-procedure diagnosis: 1. FACET ARTHROPATHY Post-procedure diagnosis: same Procedure Notes Procedure: 1. Left L4, L5 and S1 MB BLOCKS LA Indications: Korin is referred by Dr. Shre for treatment of Left Axial LBP. Physician: Jaspal Barros Total Fluoroscopy time (seconds): 9 Total sedation minutes: 10 Complications: none Procedure in detail & Post-procedure care: DESCRIPTION OF PROCEDURE Fluoroscopically guided, contrast-controlled left L4, L5 and S1 medial branch blocks with 0.5cc of 0.5% Marcaine. Following review of allergy and review of potential side effects and complications, including, but not necessarily limited to, infection, allergic reaction, local tissue breakdown, nerve injury, paralysis, stroke and possible , the patient indicated that the patient understood and agreed to proceed. An informed consent document was signed by the patient, witnessed by a nurse, and placed in the patient's chart. After review of previous anaesthesic history and IV conscious sedation the patient was deemed safe to proceed with today?s procedure with IV conscious sedation as ASA class II designation. Safety time-out was performed to confirm patient ID, procedure to be performed and site of procedure. IV sedation was accomplished with a combination of 2mg of Versed was administered by the RN after DO order, titrated to patient comfort during the course of the procedure while the patient remained responsive to all verbal commands. In the prone position, following sterile prep and drape of the lumbar region, the left L4, L5 and S1 anatomical location of the medial branch of the dorsal ramus was identified fluoroscopically. Subsequently an anesthetic skin wheal using 1% lidocaine solution was initiated at each of the anatomical spots. Subsequently then a 22-gauge 3.5-inch spinal needle was atraumatically introduced and advanced under fluoroscopic guidance at each of the corresponding sites at the left L4, L5 and S1 MB. After negative aspiration, 0.2cc of Isovue 200 was injected, confirming placement without vascular or intrathecal uptake. Subsequently then 0.5cc of 0.5% Marcaine solution was injected at each of the corresponding sites at the left L4, L5 and S1 medial branch locations. The patient tolerated the procedure well without signs or symptoms of complications. The patient tolerated the procedure well without signs or symptoms of complications prior to transfer to the recovery area continued monitoring without incident. Post-procedure, the patient was monitored initiating provocative activities to measure the amount of relief from block of the facetogenic pain. The patient reported a VAS of 7 prior to the procedure and a post-procedure VAS of 1. It has been a pleasure to assist in the diagnostic and therapeutic care of your patient. POST OP INSTRUCTIONS The patient was provided with a Pain Log to complete over the next several hours and subsequent days prior to the patient's follow up with the ordering physician. If the patient has circuit board inspector relief to the solution applied, then they may be a candidate for medial branch rhizotomy. The patient is aware, was provided, once again, with a Pain Log and will follow up with the referring physician for review and clinical correlation.
== END 2024-08-14 09:55 | disposition home or self-care (01) ==
LOC: RAD 08:06
PROVIDERS: PCP Internal Medicine; Referring Provider Physical Medicine & Rehabilitation; Visit Provider Physical Medicine & Rehabilitation
DX: M47.816 Spondylosis without myelopathy or radiculopathy, lumbar region (principal)
CPT/HCPCS: 64493; 64494; 99152; J2250

== ENCOUNTER 2024-11-06 07:22 | Outpatient (CLI) | payer OTHER, SELFPAY ==
[2024-11-06] VITALS (10 sets, daily range): BP systolic 135–161; BP diastolic 67–82; PULSE 75–85; RESP 10–94; TEMP 36.6; O2SAT 94–99
[2024-11-06] MEDS: MIDAZOLAM 2 MG/2 ML VIAL IV (08:20)
[2024-11-06] MEDS: LIDOCAINE 1% 20 ML 5 ML INJ (08:28)
[2024-11-06] MEDS: BUPIVACAINE 0.5% (PF) 10 ML VIAL 5 ML INJ (08:29)
[2024-11-06] MEDS: MIDAZOLAM 2 MG/2 ML VIAL 1 MG IV (08:33)
--- NOTE | 2024-11-06 08:48 | P.PCN_ITS ---
Date/Time/Diagnoses Date of procedure: 11/06/24 Time of procedure: 08:48 Pre-procedure diagnosis: 1. RECALCITRANT FACET ARTHROPATHY Post-procedure diagnosis: same Procedure Notes Procedure: 1. LEFT L4 AND L5 MEDIAL BRANCH RADIOFREQUENCY NEUROTOMY AND LEFT S1 DORSAL RAMUS RADIOFREQUENCY NEUROTOMY, Indications: Korin is referred by Dr. Sher for treatment of facet arthropathy. Physician: Jaspal Barros Total Fluoroscopy time (seconds): 6 Total sedation minutes: 22 Complications: none Procedure in detail & Post-procedure care: DESCRIPTION OF PROCEDURE Left L4 and L5 medial branch radiofrequency neurotomy and left S1 dorsal ramus branch radiofrequency neurotomy under fluoroscopy with conscious sedation. The patient is well known to this clinic having undergone previous facet injections with good but temporary relief. The patient has experienced appropriate, concordant relief with previous facet and median branch blocks but the patient's pain has been recalcitrant to further conservative measures. Therefore, based upon the patient's relief and persistent symptoms, the patient is considered an appropriate candidate for facet rhizotomy. All of the patient's questions regarding the risks versus benefits of the procedure, including, but not limited to, bleeding, infection, temporary as well as lasting nerve injury, paralysis, stroke, and , as well treatment alternatives were answered to satisfaction. After obtaining informed consent, denial of pertinent drug allergies, as well as being made aware of the potential risks of bleeding, infection, spinal cord trauma, paralysis, temporary and permanent nerve damage, seizure, stroke, and possible , the patient was brought to the fluoroscopy suite and positioned prone on the fluoroscopy table. The lumbar region was prepped with Betadine and covered with a fenestrated drape in the usual sterile fashion. Appropriate monitors applied including pulse oximeter, pulse, and blood pressure for regular monitoring throughout the procedure. IV sedation was accomplished with a combination of 2mg of Versed and 50mcg of Fentanyl titrated to patient comfort during the course of the procedure while the patient remained responsive to all verbal commands. After local infiltration using 1% lidocaine, under fluoroscopic guidance, a 10- cm RF insulated needle with a 10-mm active tip was positioned parallel to the junction of the left sacral ala and the superior articulating process where the S1 dorsal ramus resides. Needle placement was confirmed with sensory stimulation at 50 Hz, with motor stimulation of .5v on the left which produced local stimulation without radicular component. The stimulation was then increased to 2v with, once again, only local multifidus stimulation without radicular component. This was then followed by two discreet lesions performed at 80 degrees Celsius for 90 seconds each. The needle was then removed and the identical procedure was performed along the length of the left L5 medial branch with motor stimulation at .7v on the left. The identical procedure was once again performed along the length of the left L4 medial branch with motor stimulation of .5v on the left. The patient tolerated the procedure well without signs or symptoms of complications prior to transfer to the recovery area continued monitoring without incident. The patient was then transferred to the recovery area where they were observed for an appropriate period of time after the injection. The patient was then transferred to the recovery area where they were observed for an appropriate period of time after the injection. The patient reported a VAS score of 9 prior to the procedure and a post- procedure VAS of 0. POST OP INSTRUCTIONS The patient was provided a Pain Log to continue to record the patient's response to the target-specific procedure prior to the patient's follow-up visit with the referring physician. Additionally, specific post-injection care instructions and a contact number to our office were provided if concerns arise regarding possible complications associated with the procedure are suspected.
== END 2024-11-06 09:06 | disposition home or self-care (01) ==
PROVIDERS: PCP Internal Medicine; Referring Provider Physical Medicine & Rehabilitation; Visit Provider Physical Medicine & Rehabilitation
DX: M47.816 Spondylosis without myelopathy or radiculopathy, lumbar region (principal)
CPT/HCPCS: 64635; 64636; 99152; J2250

== ENCOUNTER 2025-03-26 13:06 | Outpatient (CLI) | payer OTHER, SELFPAY ==
[2025-03-26] VITALS (10 sets, daily range): BP systolic 128–162; BP diastolic 59–76; PULSE 60–134; RESP 16–92; TEMP 36.6; O2SAT 93–98
[2025-03-26] MEDS: MIDAZOLAM 2 MG/2 ML VIAL IV (14:47)
[2025-03-26] MEDS: BUPIVACAINE 0.5% (PF) 10 ML VIAL 2 ML INJ (14:51)
[2025-03-26] MEDS: BETAMETHASONE 30 MG/5 ML MDV 12 MG INJ (14:51)
[2025-03-26] MEDS: BETAMETHASONE 30 MG/5 ML MDV 6 MG INJ (14:52)
[2025-03-26] MEDS: LIDOCAINE 1% 20 ML INJ (14:53)
--- NOTE | 2025-03-26 15:08 | PM.PROC.IR.1 ---
Date/Time/Diagnoses Date of procedure: 03/26/25 Time of procedure: 15:08 Pre-procedure diagnosis: Sacroiliac joint pain/DJD Post-procedure diagnosis: same Procedure Notes Procedure: Fluoroscopic guided contrast controlled bilateral sacroiliac joint injection Indications: Korin is referred by Dr. Sher for treatment of bilateral sacroiliac joint DJD Physician: Jaspal Barros Total Fluoroscopy time (seconds): 12 Total sedation minutes: 17 Complications: none Procedure in detail & Post-procedure care: Description of procedure Fluoroscopic guided, contrast controlled bilateral sacroiliac joint injection Following review of allergies and review of potential side effects and complications, including, but not necessarily limited to, infection, allergic reaction, local tissue breakdown, temporary as well as permanent nerve injury, paralysis, stroke and possible , the patient indicated that they understood and agreed to proceed. An informed consent was signed by the patient, witnessed by a nurse, and placed in the patient's chart. Additionally, other treatment options including modalities, medications, and physical therapy were reviewed with the patient. After review of previous anaesthesic history and IV conscious sedation the patient was deemed safe to proceed with today?s procedure with IV conscious sedation as ASA class II designation. Safety time-out was performed to confirm patient ID, procedure to be performed and site of procedure. IV sedation was accomplished with a combination of 2mg Versed were administered by the RN after DO order, titrated to patient comfort during the course of the procedure while the patient remained responsive to all verbal commands In the prone position following sterile prep and drape of the pelvic region, the hyper lucency on in the inferior aspect of the sacroiliac joint was identified fluoroscopically the skin was anesthetized be a 25 gauge 1.5 inch needle with approximately 2cc of 1% lidocaine solution. At this point, a 22 gauge 3 in spinal needle was atraumatically introduced and advanced under fluoroscopic guidance into the inferior aspect of the right sacroiliac joint. Following negative aspiration, approximately 0.3cc of Isovue-300 was injected confirming intra-articular placement without vascular uptake. Radiographic data, including multiple fluoroscopic views of the pelvis, reveals a spinal needle in the sacroiliac joint hyper lucent zone. Subsequent view show flow contrast tear superiorly and inferiorly within the joint capsule without vascular intrathecal uptake. At this point a total of 1cc of 0.5% Marcaine was combined with 1cc of 6mg of betamethasone was injected without incident. Attention was then refocused the left sacroiliac joint where the procedure was replicated. The procedure tolerated the procedure well without signs or symptoms of complications prior to transfer to the recovery area continued monitoring without incident. The patient was then transferred to the recovery area with a bur observed for an appropriate time after the injection. The patient reverted a vas score of 7 prior to the procedure and post-procedure vas of 1. Postop instructions The patient was provided with a pain like to continue to record the patient's response to the target specific procedure prior to the patient's follow-up visit with the referring physician. Additionally, specific post injection care instructions and a contact number to our office were provided if concerns arise regarding the possible complications associated with procedure are suspected.
== END 2025-03-26 15:38 | disposition home or self-care (01) ==
PROVIDERS: PCP Internal Medicine; Referring Provider Physical Medicine & Rehabilitation; Visit Provider Physical Medicine & Rehabilitation
DX: M53.3 Sacrococcygeal disorders, not elsewhere classified (principal); M46.1 Sacroiliitis, not elsewhere classified
CPT/HCPCS: 27096; 99152; J0702; J2250